=== PATIENT | male | born 1965 | race Caucasian/White ===

== ENCOUNTER → 2017-02-19 | Outpatient (CLI) | payer MEDICAID, SELFPAY | PROVIDERS: Family Provider Family Medicine; Visit Provider Family Medicine | DX: M79.604 Pain in right leg (principal) | CPT/HCPCS: 93971 ==

== ENCOUNTER → 2017-03-31 11:19 | Outpatient (CLI) | payer MEDICAID, SELFPAY ==
--- NOTE | 2017-03-31 11:28 | XR_ITS ---
XR foot RT min 3V HISTORY: ITS.REASON: RT FOOT PAIN ORDERING PHYSICIAN: Tray Lizarraga MD PATIENT AGE: 51 years COMPARISON: None FINDINGS: No fracture or dislocation. No lytic or blastic change. There is normal mineralization.. The joint spaces are well-preserved. No significant degenerative/arthritic changes. No erosive changes evident. IMPRESSION: Negative, no acute finding
== END ==
PROVIDERS: PCP Family Medicine; Visit Provider Family Medicine
DX: M79.671 Pain in right foot (principal)
CPT/HCPCS: 73630

== ENCOUNTER 2019-04-04 06:35 | Inpatient (IN) ==
--- NOTE | 2019-04-04 06:53 | Emergency Department Note ---
ED Disposition Condition on Discharge: Fair - Critical Care Critical Care Time: No <BrennonBharath - Last Filed: 04/04/19 07:58> <Humberto Perez - Last Filed: 04/04/19 11:57> Clinical Impression: Left sided abdominal pain, Left-sided chest pain Disposition: Admitted as Observation Attestation: On 04/04/19, the high probability of a clinically significant, sudden or life threatening deterioration of the following system(s) required my full and direct attention, intervention and personal management. The time I documented below is in addition to time spent performing reported procedures but includes the following listed in this critical care notation. Medical Decision Making - Julius Inquiry Pt receiving controlled substance: Yes Julius was queried for this patient: Yes Reference #:: [id number] Risks and benefits of using a controlled substance: were not discussed with pt by me Comment: 27 rxs. last rx 60 oxymorphone 40mg 03/04/19 - Lab Data Result diagrams: 04/04/19 06:45 04/04/19 06:45 <Bharath Willett - Last Filed: 04/04/19 07:58> - Lab Data Result diagrams: 04/04/19 06:45 04/04/19 06:45 <Humberto Perez - Last Filed: 04/04/19 11:57> Vital Signs: 04/04/19 06:44 04/04/19 07:45 04/04/19 11:27 Temperature 98.5 F Temperature Source Oral Pulse Rate Pulse Rate [Left] 96 H 91 H 89 Respiratory Rate 20 Blood Pressure Blood Pressure [Left Arm] 130/68 120/60 Blood Pressure Mean [Left Arm] 88 80 Blood Pressure Source [Left Arm] Automatic Cuff Blood Pressure Position [Left Arm] Supine 02 Sat by Pulse Oximetry 95 96 96 Oxygen Delivery Method Nasal Cannula Oxygen Flow Rate (LPM) 2 04/04/19 11:41 Temperature 98.1 F Temperature Source Pulse Rate 78 Pulse Rate [Left] Respiratory Rate 18 Blood Pressure 124/78 Blood Pressure [Left Arm] Blood Pressure Mean [Left Arm] Blood Pressure Source [Left Arm] Blood Pressure Position [Left Arm] 02 Sat by Pulse Oximetry Oxygen Delivery Method Oxygen Flow Rate (LPM) - Lab Data Lab Results 04/04/19 06:45: WBC 7.5, RBC 3.65 L, Hgb 11.0 L, Hct 34.0 L, MCV 93.0, MCH 30.2, MCHC 32.5, RDW 13.5, Plt Count 259, MPV 8.4, Neut % (Auto) 79.3, Lymph % (Auto) 12.6, [place] % (Auto) 6.5, Eos % (Auto) 1.4, Baso % (Auto) 0.3, Neut # (Auto) 6.0, Lymph # (Auto) 0.9, [place] # (Auto) 0.5, Eos # (Auto) 0.1, Baso # (Auto) 0.0 04/04/19 06:45: Sodium 143, Potassium 3.6, Chloride 106, Carbon Dioxide 23, Anion Gap 17.6 H, BUN 13, Creatinine 0.89, Estimated Creat Clear 97, Estimated GFR 89, Est GFR ( Amer) 107, Glucose 133 H, Calcium 8.7, Total Bilirubin 0.6, AST 27, ALT 23, Alkaline Phosphatase 70, Troponin I < 0.02, Total Protein 6.9, Albumin 2.1 L, Globulin 4.8 H, Albumin/Globulin Ratio 0.4 L, Lipase 211 04/04/19 10:30: Troponin I < 0.02 04/04/19 10:30: Lactate 1.3 Orders (Tests/Meds): ED MEDICATIONS Generic Name Dose Route Start Last Admin Trade Name Freq PRN Reason Stop Dose Admin Sodium Chloride 1,000 mls @ 125 mls/hr 04/04/19 11:44 Sod Chlor 0.9% 1000ml Bag IV 05/04/19 10:59 .Q8H ARNOLD Ampicillin Sodium/Sulbactam 100 mls @ 200 mls/hr 04/04/19 12:00 Sodium 3 gm/ Sodium Chloride IV 04/18/19 11:59 Q6H ARNOLD Protocol Oxycodone HCl 5 mg 04/04/19 11:44 Oxyir 5mg Tablet PO 05/04/19 10:59 Q4HP PRN Severe Pain Discontinued Medications Generic Name Dose Route Start Last Admin Trade Name Freq PRN Reason Stop Dose Admin Diatrizoate Meglum/Diatrizoate Sod 30 ml 04/04/19 07:54 04/04/19 08:06 Gastrografin 66%-10% 30ml PO 04/04/19 07:55 30 ml ONCE ONE Administration Hydromorphone HCl 1 mg 04/04/19 07:07 04/04/19 07:48 Dilaudid 2mg/Ml Syringe IV 04/04/19 07:08 1 mg ONCE ONE Administration Lactated Ringer's 500 mls @ 999 mls/hr 04/04/19 09:45 04/04/19 10:40 Lactated Ringer's 1000 Ml Bag IV 04/04/19 10:15 Not Given .Q31M ARNOLD Azithromycin 500 mg/ Sodium 250 mls @ 250 mls/hr 04/04/19 10:15 04/04/19 10:49 Chloride IV 04/18/19 10:14 250 mls/hr Q24H ARNOLD Administration Protocol Ceftriaxone Sodium 1 gm/ 50 mls @ 100 mls/hr 04/04/19 10:15 04/04/19 10:39 Sodium Chloride IV 04/18/19 10:14 100 mls/hr Q24H ARNOLD Administration Protocol Sodium Chloride 1,000 mls @ 125 mls/hr 04/04/19 11:00 Sod Chlor 0.9% 1000ml Bag IV 05/04/19 10:59 .Q8H ARNOLD Ioversol 70 ml 04/04/19 09:57 04/04/19 09:58 Rad-Optiray 350 100ml Vial IV 04/04/19 09:58 70 ml ONCE ONE Administration Protocol Ondansetron HCl 4 mg 04/04/19 07:07 04/04/19 07:48 Zofran 4mg/2ml Vial IV 04/04/19 07:08 4 mg ONCE ONE Administration Oxycodone HCl 5 mg 04/04/19 11:00 Oxyir 5mg Tablet PO 05/04/19 10:59 Q4HP PRN Severe Pain Sodium Chloride 50 ml 04/04/19 09:57 04/04/19 09:58 Rad-Ns 50ml Vial IV 04/04/19 09:58 50 ml ONCE ONE Administration Sodium Chloride 10 ml 04/04/19 09:57 04/04/19 09:58 Rad-Saline Flush 10ml Syringe IV 04/04/19 09:58 10 ml ONCE ONE Administration ORDERS Category Date Time Status Consult to General Surgery [CONS] Routine Cons 04/04/19 11:05 Ordered BMP [Basic Metabolic Panel] Routine Lab 04/05/19 05:00 Ordered Complete Blood Count Auto Diff Routine Lab 04/05/19 05:00 Ordered Diarrhea 6-11 Panel, Cdiff PCR Stat Lab 04/04/19 06:54 Ordered Blood Culture Stat Micro 04/04/19 10:30 Received - ECG Data Tracing #1 EKG interpreted by Bharath Willett MD: Rhythm: sinus Rate: 91 Martin: normal Ectopy: none Conduction: normal ST Segment Changes: none T Wave Changes: none Q Waves: none No evidence of acute ischemia or injury Baseline artifact and wander present, but I consider the EKG adequate for accurate interpretation. (Bharath Willett) Medical Decision Narrative: 8:00 AM: At shift change, I have discussed the patient with Dr. Perez, who will assume care of the patient at this time. I have discussed all clinical information including history, physical and diagnostic study results. Preliminary diagnoses based on information available at this point have been recorded by me. Controlled substance administration and critical care statement are also preliminary, as of the time of handoff. (Bharath Willett) Dr Perez: Patient's care handed off to me at shift change pending radiology. On initial evaluation the patient is non toxic in appearance but in acute pain. Patient's labs reviewed and are non actionable. X ray returns showing evidence of left sided pneumonia. Patient started on IV ceftriaxone and IV azithromycin for presumed community acquired pneumonia. Patient's CTs return showing: Impression 1. There is diffuse prominent interstitial markings in the left upper and left lower lobe. This is more extensive in the left upper lobe and has developed since the previous exam. This may be infectious/inflammatory. Lymphangitic tumor spread would be included in the differential diagnosis. There are 3 opacities in the left lower lobe which have developed since the previous exam and could be infectious inflammatory or neoplastic. Follow-up is suggested. There is trace left-sided effusion. 2. No evidence of pulmonary embolus aortic aneurysm or dissection. 3. Mild mediastinal adenopathy. 4. Trace pericardial effusion with coronary artery calcifications noted IMPRESSION: 1. Enlarged appendix measuring up to 10 mm in diameter previously measuring 5-6 mm. There is some minimal stranding of the periappendiceal fat. Appendicitis is considered. Please correlate with clinical parameters. 2. No evidence of renal or ureteral calculi. 3. Infrarenal abdominal aortic aneurysm at 3.8 x 3.8 cm. No evidence of acute retroperitoneal hemorrhage. Contacted the paitent's PCP Dr. Lizarraga as well as Dr. August of surgery to discuss results. Given patient's atypical presentation enlarged appendix is likely due to air from recent colonoscopy. Agreement between all three of us is that the patient will be admitted to the hospital under Dr. Lizarraga's care with Dr. August being consulted for serial abdominal exams. Patient started on Unasyn per Dr. Lizarraga's request. (Humberto Perez) General Adult HPI <Bharath Willett - Last Filed: 04/04/19 07:58> <Humberto Perez - Last Filed: 04/04/19 11:57> - General Chief complaint: Abdominal Pain Stated complaint: L FLANK, ABDOMINAL AND BACK PAIN Time Seen by Provider: 04/04/19 06:40 - History of Present Illness HPI narrative: Brought in by ambulance. Complains of stabbing pain on his left side. Indicates left abdomen, flank, lower chest. He is a poor historian. He had a colonoscopy done here on with polyp removal. He says that the pain began on Thursday. He says that he had "pneumonia on Thursday but it went away on Thursday". He says that he was told that he had vomited acid into his lung. Denies fever. Denies vomiting. He does have diarrhea. Currently denies cough. His pain does increase with breathing. He has a prior history of DVT and PE. He is on Eliquis, which was held for 3 days prior to his colonoscopy. He says he resumed taking it after his colonoscopy. (Bharath Willett) - Related Data Home Medications Medication Instructions Recorded Confirmed albuterol sulfate 90 mcg/actuation 2 puff INHALATION Q4-6H PRN 03/15/19 04/04/19 aerosol inhaler apixaban 5 mg tablet 5 mg PO BID 03/15/19 04/04/19 aspirin 81 mg tablet,delayed 81 mg PO DAILY 03/15/19 04/04/19 release bisoprolol fumarate 5 mg tablet 5 mg PO DAILY 03/15/19 04/04/19 carbamazepine 200 mg tablet 400 mg PO BID tab 03/15/19 04/04/19 diltiazem HCl 30 mg tablet 30 mg PO TID 03/15/19 04/04/19 fluticasone furoate 100 1 inh INHALATION DAILY 03/15/19 04/04/19 mcg-vilanterol 25 mcg/dose inhalation powder fluticasone propionate 50 1 spray INTRANASAL DAILY 03/15/19 04/04/19 mcg/actuation nasal spray,suspension furosemide 20 mg tablet 20 mg PO BID 03/15/19 04/04/19 lactulose 10 gram/15 mL oral 10 g PO DAILY 03/15/19 04/04/19 solution linaclotide 72 mcg capsule 72 mcg PO DAILY 03/15/19 04/04/19 meloxicam 15 mg tablet 15 mg PO DAILY 03/15/19 04/04/19 naloxone 4 mg/actuation nasal spray 4 mg INTRANASAL Q2-3M PRN 03/15/19 04/04/19 nitroglycerin 0.4 mg sublingual 0.4 mg SUBLINGUAL Q5M PRN 03/15/19 04/04/19 tablet omeprazole 40 mg capsule,delayed 40 mg PO DAILY 03/15/19 04/04/19 release potassium chloride 20 mEq 20 meq PO DAILY 03/15/19 04/04/19 tablet,extended release pravastatin 20 mg tablet 20 mg PO DAILY 03/15/19 04/04/19 promethazine 25 mg tablet 25 mg PO Q6H PRN 03/15/19 04/04/19 risperidone 3 mg tablet 3 mg PO BID 03/15/19 04/04/19 umeclidinium 62.5 mcg/actuation 1 inh INHALATION DAILY 03/15/19 04/04/19 blister powder for inhalation Oxymorphone HCl [Oxymorphone HCl 40 mg PO DAILY 03/31/19 04/04/19 ER] Allergies Allergy/AdvReac Type Severity Reaction Status Date / Time codeine [CODEINE] Allergy Mild Verified 03/31/19 07:20 levofloxacin [From LEVAQUIN] Allergy Mild Verified 03/31/19 07:20 methadone [METHADONE] Allergy Mild Verified 03/31/19 07:20 fentanyl [From Duragesic] Allergy Verified 03/31/19 07:20 morphine Allergy Verified 03/31/19 07:20 [facility] History I have reviewed the patient's past medical history: Yes Medical History: Reports:: Chronic Obstructive Pulmonary Disease (COPD), Gastroesophageal Reflux Disease(GERD), Hyperlipidemia, Hypertension, MRSA, Seizures Denies:: Cancer, Diabetes Mellitus Type 1, Diabetes Mellitus Type 2, Internal Pacemaker Other Medical History: Reports: Arthritis Comment: Home O2 at 3 L via [place] Other Surgeries: Yes: Colonoscopy, Other (Lumbar sx X3). No: Pacemaker Amputation: No Fractures: No Comment: 5-6 back surgeries, lt arm - Social History Smoking Status: Former smoker Alcohol Intake: never Substance Use Type: denies use Occupational Status: disabled Housing: house Household Members: none Family Hx:: Unable to obtain <Bharath Willett - Last Filed: 04/04/19 07:58> - Hepatitis A Screen Attestation statement:: This patient has been screened for Hepatitis A risk factors. ROS Obtained: Yes All systems reviewed & no additional complaints - Constitutional Constitutional: Denies fever(s) - Cardiovascular Cardiovascular: Reports chest pain - Respiratory Respiratory: No cough, Yes pain on inspiration - Gastrointestinal Gastrointestingal: Reports: abdominal pain, diarrhea. Denies: nausea, vomiting - Genitourinary Male Genitourinary: Denies difficulty urinating <Bharath Willett - Last Filed: 04/04/19 07:58> Physical Exam - General General appearance: alert - Head Head exam: atraumatic, normocephalic - Eye Eye exam: Present: normal appearance, EOMI - ENT ENT exam: Present: mucous membranes moist - Neck Neck exam: Present: normal inspection, trachea midline - Chest Chest inspection: Present: normal inspection, symmetric chest wall rise - Respiratory Respiratory exam: Present: normal lung sounds bilaterally. Absent: respiratory distress - Cardiovascular Cardiovascular exam: Present: regular rate, normal rhythm, normal heart sounds - Abdominal Exam Abdominal exam: Present: tenderness, guarding Abdominal tenderness: Present: LUQ, LLQ - Extremities Exam Extremities exam: Present: normal inspection - Neurological Exam Neurological exam: Present: alert - Psychiatric Psychiatric exam: Present: anxious - Skin Skin exam: Present: warm, dry <Bharath Willett - Last Filed: 04/04/19 07:58> - General Comment: Restless, anxious, grimacing and moaning (Bharath Willett)
[2019-04-04 07:04] LABS: Basophils % 0.3 % (0.1-2.0); Eosinophils # 0.1 K/mm3 (0.0-0.4); Eosinophils % 1.4 % (0.1-12.0); Lymphocytes # 0.9 K/mm3 (0.7-4.5); Lymphocytes % 12.6 % (10-50); Mean Corpuscular HGB Conc 32.5 g/dL (31.8-35.4); Mean Platelet Volume 8.4 fl (7.4-10.4); Monocytes # 0.5 K/mm3 (0.1-1.0); Monocytes % 6.5 % (1.7-9.3); Neutrophils % 79.3 % (37.0-80.0); Platelet Count 259 K/mm3 (142-424); Red Blood Count 3.65 M/mm3 (4.60-6.20); Red Cell Distribution Width 13.5 % (11.5-17.5); White Blood Count 7.5 K/mm3 (4.8-10.8)
[2019-04-04 07:25] LABS: Alanine Aminotransferase 23 U/L (12-78); Albumin Level 2.1 gm/dL (3.4-5.0); Albumin/Globulin Ratio 0.4 (1.1-1.8); Alkaline Phosphatase 70 U/L (46-116); Anion Gap 17.6 mEq/L (5-15); Aspartate Amino Transferase 27 U/L (15-37); Bilirubin,Total 0.6 mg/dL (0.2-1.0); Blood Urea Nitrogen 13 mg/dL (7-18); Calcium 8.7 mg/dL (8.5-10.1); Carbon Dioxide 23 mmol/L (21.0-32.0); Chloride 106 mmol/L (98-107); Globulin 4.8 gm/dl (1.3-3.2); Glucose 133 mg/dL (74-106); Sodium 143 mmol/L (136-145); Total Protein,Serum 6.9 gm/dL (6.4-8.2)
--- NOTE | 2019-04-04 13:28 | Consult Report ---
*Admission Date: 04/04/19 *Reason for consult:: Abdominal pain; possible appendicitis *History of present illness: This is a 53-year-old gentleman seen in consultation from the service of Dr. Lizarraga after being evaluated in the emergency department with left lower chest, left flank, and global abdominal pain (worse on the left). He is 4 days status post colonoscopy with polypectomy. Evaluation in emergency department revealed changes consistent with likely left-sided pneumonia; however, he also was found to have a somewhat enlarged appendix with questionable minimal periappendiceal fat stranding. He states that his appetite has been a little low for the past few weeks (in particular since bowel prep for colonoscopy). He states that over the past 24 to 48 hours he is appetite is been "about the same". No fevers. No nausea. He has had some "loose stools" over the past few days. Review of Systems - Constitutional Denies fever(s) - Eyes Denies change in vision - ENT Denies difficulty swallowing - *Cardiovascular Reports chest pain - *Gastrointestinal Reports abdominal pain, Reports loose stools, Denies nausea, Denies vomiting - *Genitourinary Reports side pain - Endocrine Denies increased hunger - Hematologic/Lymphatic Reports easy bruising [facility] History Medical History: Reports:: Chronic Obstructive Pulmonary Disease (COPD), Gastroesophageal Reflux Disease(GERD), Hyperlipidemia, Hypertension, MRSA, Seizures Denies:: Cancer, Diabetes Mellitus Type 1, Diabetes Mellitus Type 2, Internal Pacemaker *Have you ever received a pneumonia vaccine?: Yes *Have you received a flu vaccine this season?: Yes Other Medical History: Reports: Arthritis Other Surgeries: Yes: Colonoscopy, Other (Lumbar sx X3). No: Pacemaker Amputation: No Fractures: No - *Social History Smoking Status: Former smoker Tobacco Type: cigarettes Alcohol Intake: former Substance Use Type: unknown *Occupational Status:: disabled Housing: house Household Members: none *Travel in the last 8 weeks: None Family Hx:: Unable to obtain Meds Home Medications Medication Instructions Recorded Confirmed Type albuterol sulfate 90 mcg/actuation 2 puff INHALATION Q4-6H PRN 03/15/19 04/04/19 History aerosol inhaler apixaban 5 mg tablet 5 mg PO BID 03/15/19 04/04/19 History aspirin 81 mg tablet,delayed 81 mg PO DAILY 03/15/19 04/04/19 History release bisoprolol fumarate 5 mg tablet 5 mg PO DAILY 03/15/19 04/04/19 History carbamazepine 200 mg tablet 400 mg PO BID tab 03/15/19 04/04/19 History diltiazem HCl 30 mg tablet 30 mg PO TID 03/15/19 03/31/19 History fluticasone furoate 100 1 inh INHALATION DAILY 03/15/19 04/04/19 History mcg-vilanterol 25 mcg/dose inhalation powder fluticasone propionate 50 1 spray INTRANASAL DAILY 03/15/19 04/04/19 History mcg/actuation nasal spray,suspension furosemide 20 mg tablet 20 mg PO BID 03/15/19 04/04/19 History lactulose 10 gram/15 mL oral 10 g PO DAILY 03/15/19 04/04/19 History solution linaclotide 72 mcg capsule 72 mcg PO DAILY 03/15/19 04/04/19 History meloxicam 15 mg tablet 15 mg PO DAILY 03/15/19 04/04/19 History naloxone 4 mg/actuation nasal spray 4 mg INTRANASAL Q2-3M PRN 03/15/19 04/04/19 History nitroglycerin 0.4 mg sublingual 0.4 mg SUBLINGUAL Q5M PRN 03/15/19 04/04/19 History tablet omeprazole 40 mg capsule,delayed 40 mg PO DAILY 03/15/19 04/04/19 History release potassium chloride 20 mEq 20 meq PO DAILY 03/15/19 04/04/19 History tablet,extended release pravastatin 20 mg tablet 20 mg PO DAILY 03/15/19 04/04/19 History promethazine 25 mg tablet 25 mg PO Q6H PRN 03/15/19 04/04/19 History risperidone 3 mg tablet 3 mg PO BID 03/15/19 04/04/19 History umeclidinium 62.5 mcg/actuation 1 inh INHALATION DAILY 03/15/19 04/04/19 History blister powder for inhalation Oxymorphone HCl [Oxymorphone HCl 40 mg PO DAILY 03/31/19 04/04/19 History ER] Allergies Allergy/AdvReac Type Severity Reaction Status Date / Time codeine [CODEINE] Allergy Mild Verified 03/31/19 07:20 levofloxacin [From LEVAQUIN] Allergy Mild Verified 03/31/19 07:20 methadone [METHADONE] Allergy Mild Verified 03/31/19 07:20 fentanyl [From Duragesic] Allergy Verified 03/31/19 07:20 morphine Allergy Verified 03/31/19 07:20 Exam Vital signs and Labs for Last 24 Hours: Temp Pulse Resp BP Pulse Ox 97.9 F 96 H 22 158/58 H 93 L 04/04/19 12:00 04/04/19 12:00 04/04/19 12:00 04/04/19 12:00 04/04/19 12:00 Laboratory Results - last 24 hr 04/04/19 06:45: WBC 7.5, RBC 3.65 L, Hgb 11.0 L, Hct 34.0 L, MCV 93.0, MCH 30.2, MCHC 32.5, RDW 13.5, Plt Count 259, MPV 8.4, Neut % (Auto) 79.3, Lymph % (Auto) 12.6, [place] % (Auto) 6.5, Eos % (Auto) 1.4, Baso % (Auto) 0.3, Neut # (Auto) 6.0, Lymph # (Auto) 0.9, [place] # (Auto) 0.5, Eos # (Auto) 0.1, Baso # (Auto) 0.0 04/04/19 06:45: Sodium 143, Potassium 3.6, Chloride 106, Carbon Dioxide 23, Anion Gap 17.6 H, BUN 13, Creatinine 0.89, Estimated Creat Clear 97, Estimated GFR 89, Est GFR ( Amer) 107, Glucose 133 H, Calcium 8.7, Total Bilirubin 0.6, AST 27, ALT 23, Alkaline Phosphatase 70, Troponin I < 0.02, Total Protein 6.9, Albumin 2.1 L, Globulin 4.8 H, Albumin/Globulin Ratio 0.4 L, Lipase 211 04/04/19 10:30: Troponin I < 0.02 04/04/19 10:30: Lactate 1.3 I & O for Last 24 hours: Intake & Output 04/02/19 04/03/19 04/04/19 04/05/19 11:59 11:59 11:59 11:59 Intake Total 300 / 300 Balance 300 / 300 Weight 160 lb 4 oz - Constitutional moderate distress - *Routine Respiratory Exam Absent: respiratory distress - *Routine Cardiovascular Exam Absent: tachycardia - *Routine Abdominal Exam Present: tenderness, distended Comments: The patient has global abdominal tenderness to palpation. He does not have mandie peritonitis. When any portion of his abdomen is palpated he states that he "hurts there but it hurts more in the left upper side". He states that his pain "goes to the left upper side". He believes that his pain is "from the pneumonia". Results - Labs 04/04/19 06:45 04/04/19 06:45 Laboratory Results - last 24 hr 04/04/19 06:45: WBC 7.5, RBC 3.65 L, Hgb 11.0 L, Hct 34.0 L, MCV 93.0, MCH 30.2, MCHC 32.5, RDW 13.5, Plt Count 259, MPV 8.4, Neut % (Auto) 79.3, Lymph % (Auto) 12.6, [place] % (Auto) 6.5, Eos % (Auto) 1.4, Baso % (Auto) 0.3, Neut # (Auto) 6.0, Lymph # (Auto) 0.9, [place] # (Auto) 0.5, Eos # (Auto) 0.1, Baso # (Auto) 0.0 04/04/19 06:45: Sodium 143, Potassium 3.6, Chloride 106, Carbon Dioxide 23, Anion Gap 17.6 H, BUN 13, Creatinine 0.89, Estimated Creat Clear 97, Estimated GFR 89, Est GFR ( Amer) 107, Glucose 133 H, Calcium 8.7, Total Bilirubin 0.6, AST 27, ALT 23, Alkaline Phosphatase 70, Troponin I < 0.02, Total Protein 6.9, Albumin 2.1 L, Globulin 4.8 H, Albumin/Globulin Ratio 0.4 L, Lipase 211 04/04/19 10:30: Troponin I < 0.02 04/04/19 10:30: Lactate 1.3 - Imaging CT scan - abdomen: report reviewed, image reviewed CT scan - pelvis: report reviewed, image reviewed Assessment and Plan (1) Diffuse abdominal pain Current visit: Yes Status: Acute Category: Medical Code(s): R10.84 - Generalized abdominal pain The patient does have a somewhat enlarged appendix on his CT scan. He is tender in the right lower quadrant; however, he is much more tender in the left upper quadrant and is more tender in general on the left. He states that all of his pain "shoots to the left". Although he may have early appendicitis as evidenced by his CT scan, he does have evidence more consistent with pneumonia. Somewhat inconsistent with either the diagnosis of pneumonia or appendicitis is the fact that his white blood cell count is normal (no left shift) and he has had no fever. In addition he has had no nausea/vomiting. Serial abdominal exams Clear liquids for now (n.p.o. after midnight) Repeat CBC in a.m. Secondary to somewhat discordant findings it may be beneficial/necessary to repeat his abdominal/pelvic CT within the next 24 to 48 hours (2) Left sided abdominal pain Current visit: Yes Status: Acute Category: Medical Code(s): R10.9 - Unspecified abdominal pain (3) Left-sided chest pain Current visit: Yes Status: Acute Category: Medical Code(s): R07.9 - Chest pain, unspecified
--- NOTE | 2019-04-04 13:48 | Pharmacy Consult Notes ---
[facility] Pharmacy VTE Monitoring - Patient Demographics Admission date: 04/04/19 Report Date: 04/04/19 Time: 13:48 Allergies/Adverse Reactions: Patient Allergies codeine [CODEINE] Allergy (Mild, Verified 03/31/19 07:20) levofloxacin [From LEVAQUIN] Allergy (Mild, Verified 03/31/19 07:20) methadone [METHADONE] Allergy (Mild, Verified 03/31/19 07:20) fentanyl [From Duragesic] Allergy (Verified 03/31/19 07:20) morphine Allergy (Verified 03/31/19 07:20) Height: 1.73 m Weight: 72.688 kg Patient Problems: Current Active Problems Left sided abdominal pain (Acute) Left-sided chest pain (Acute) Diffuse abdominal pain (Acute) - VTE Risk Labs: VTE Related Lab Results Hgb 11.0 g/dL (14.1-18.0) L 04/04/19 06:45 Hct 34.0 % (42.0-52.0) L 04/04/19 06:45 Plt Count 259 K/mm3 (142-424) 04/04/19 06:45 BUN 13 mg/dL (7-18) 04/04/19 06:45 Creatinine 0.89 mg/dL (0.70-1.30) 04/04/19 06:45 Estimated Creat Clear 97 mL/min (50-200) 04/04/19 06:45 VTE Score: 5 VTE Risk Level: Low Risk - Prophylaxis VTE Prophylaxis Ordered?: Yes Types of VTE Prophylaxis: TEDS Knee High Location of Applied Device: Bilateral Lower Extremeties
--- NOTE | 2019-04-04 17:06 | History & Physical Report ---
*Admission Date: 04/04/19 *Chief complaint: Left-sided pain *History of present illness: 53-year-old male presented to the emergency department this morning with left- sided abdomen and lower chest pain. On March 31 patient underwent a colonoscopy at this facility. Patient was discharged home post procedurally and claims he was told he aspirated while he was under sedation. On Thursday patient contacted my office with complaints of cough from his "aspiration" and requested antibiotic prescription be sent to his pharmacy. Patient also felt congested symptoms in the left lung. Augmentin was called in and in less than 48 hours patient's congested chest symptoms had improved. However abdominal pain began to develop on ThursdayApril 02. Patient had associated left-sided pain along with nausea but no vomiting and diarrhea. Patient tells me that he had been without his prescription opiate pain medicine which he takes for chronic pain on Thursday. Patient takes Opana ER 40 mg twice daily. His last dose was evening. His pharmacy did not have his medication in stock and so he has been without that medication since April 01. GI symptoms increased on Thursday. Since that time stools have been loose. He denies blood in his stool. This morning he presented to the emergency department because he could no longer stand the pain. He reports left-sided pain and the patient will hold his left lower ribs and upper abdomen when indicating his area of pain. Patient also tells me that he reported some right sided lower abdominal discomfort as well. Patient was evaluated in the emergency department. He appeared in pain. Labs were unremarkable. A CT scan of the chest performed looking for pulmonary embolism because of patient's history showed inflammatory versus infectious changes of the left lung. A CT of the abdomen and pelvis performed showed prominent appendix without definitive evidence of appendicitis. Decision was made to admit the patient for monitoring and serial abdominal exams. [facility] History I have reviewed the patient's past medical history: Yes Medical History: Reports:: Atrial Fibrillation, Chronic Obstructive Pulmonary Disease (COPD), Gastroesophageal Reflux Disease(GERD), Hyperlipidemia, Hypertension, MRSA, Pulmonary Embolism, Seizures Denies:: Cancer, Diabetes Mellitus Type 1, Diabetes Mellitus Type 2, Internal Pacemaker *Have you ever received a pneumonia vaccine?: Yes *Have you received a flu vaccine this season?: Yes Other Medical History: Reports: Arthritis Other Surgeries: Yes: Colonoscopy, Other (Lumbar sx X3). No: Pacemaker Amputation: No Fractures: No - *Social History Educational Level: Attended Grade School Smoking Status: Former smoker Tobacco Type: cigarettes # Packs/Day (cigarettes): 1 #Yrs smoked (if former smoker): 30 Smoking End Date: 20 years ago Alcohol Intake: never Substance Use Type: unknown *Occupational Status:: disabled Housing: house Household Members: none *Travel in the last 8 weeks: None Family Hx:: Heart Attack, Hyperlipidemia Review of Systems - Constitutional Reports anorexia, Reports body ache(s), Reports chills, Reports excessive sweating, Reports fatigue, Reports headache(s), Reports lack of energy, Reports malaise, Reports weakness, Denies fever(s) - *Cardiovascular Reports excessive sweating, Denies chest pain, Denies chest pain at rest, Denies chest pain with activity, Denies leg pain with activity, Denies shortness of breath, Denies shortness of breath with activity, Denies generalized swelling, Denies irregular heart rhythm, Denies leg swelling - *Respiratory Reports chest congestion, Reports cough, Reports shortness of breath (Chronic), Reports shortness of breath with activity, Reports pain on inspiration, Reports pain with cough, Denies change in phlegm color, Denies coughing up blood - *Gastrointestinal Comments: See HPI - *Musculoskeletal Reports joint pain (Cervical spine, shoulders, lumbar spine) Meds Home Medications Medication Instructions Recorded Confirmed Type Oxymorphone HCl [Oxymorphone HCl 40 mg PO DAILY 03/31/19 04/04/19 History ER] Albuterol Sulfate [Proair 90 mcg IH Q4-6H 04/04/19 04/04/19 History Respiclick] Apixaban [Eliquis] 5 mg PO BID 04/04/19 04/04/19 History Aspirin [Aspir-Low] 81 mg PO DAILY 04/04/19 04/04/19 History Bisoprolol Fumarate [Bisoprolol 5 mg PO DAILY 04/04/19 04/04/19 History 5mg Tablet] Fluticasone Propionate [Flonase 1 spr NS BID 04/04/19 04/04/19 History 50mcg nasal spray 16gm] Fluticasone/Vilanterol [Breo 1 inh IH DAILY 04/04/19 04/04/19 History Ellipta 100-25 Mcg INH] Furosemide [Lasix 20mg tab] 20 mg PO BID 04/04/19 04/04/19 History Lactulose [Lactulose 10gm/15ml 10 gm PO DAILY 04/04/19 04/04/19 History Oral Soln] Linaclotide [Linzess] 72 mcg PO DAILY 04/04/19 04/04/19 History Meloxicam 15 mg PO DAILY 04/04/19 04/04/19 History Naloxone HCl [Narcan] 4 mg NS Q2M PRN 04/04/19 04/04/19 History Nitroglycerin [Nitrostat 0.4mg SL 0.4 mg SL Q5M PRN 04/04/19 04/04/19 History Tablet] Omeprazole [Omeprazole 40mg 40 mg PO DAILY 04/04/19 04/04/19 History Capsule] Potassium Chloride [Klor-con 20 20 meq PO DAILY 04/04/19 04/04/19 History mEq tablet] Pravastatin Sodium [Pravachol] 20 mg PO HS 04/04/19 04/04/19 History Promethazine HCl [Phenergan 25mg 25 mg PO Q6H PRN 04/04/19 04/04/19 History tab] Umeclidinium [place] [Incruse 1 inh INHALATION DAILY 04/04/19 04/04/19 History Ellipta] carBAMazepine [Tegretol] 400 mg PO BID 04/04/19 04/04/19 History risperiDONE [Risperidone] 3 mg PO BID 04/04/19 04/04/19 History Allergies Allergy/AdvReac Type Severity Reaction Status Date / Time codeine [CODEINE] Allergy Mild Verified 03/31/19 07:20 levofloxacin [From LEVAQUIN] Allergy Mild Verified 03/31/19 07:20 methadone [METHADONE] Allergy Mild Verified 03/31/19 07:20 fentanyl [From Duragesic] Allergy Verified 03/31/19 07:20 morphine Allergy Verified 03/31/19 07:20 Exam Vital signs and Labs for Last 24 Hours: Temp Pulse Resp BP Pulse Ox 97.9 F 96 H 22 158/58 H 93 L 04/04/19 12:00 04/04/19 12:00 04/04/19 12:00 04/04/19 12:00 04/04/19 12:00 Laboratory Results - last 24 hr 04/04/19 06:45: WBC 7.5, RBC 3.65 L, Hgb 11.0 L, Hct 34.0 L, MCV 93.0, MCH 30.2, MCHC 32.5, RDW 13.5, Plt Count 259, MPV 8.4, Neut % (Auto) 79.3, Lymph % (Auto) 12.6, [place] % (Auto) 6.5, Eos % (Auto) 1.4, Baso % (Auto) 0.3, Neut # (Auto) 6.0, Lymph # (Auto) 0.9, [place] # (Auto) 0.5, Eos # (Auto) 0.1, Baso # (Auto) 0.0 04/04/19 06:45: Sodium 143, Potassium 3.6, Chloride 106, Carbon Dioxide 23, Anion Gap 17.6 H, BUN 13, Creatinine 0.89, Estimated Creat Clear 97, Estimated GFR 89, Est GFR ( Amer) 107, Glucose 133 H, Calcium 8.7, Total Bilirubin 0.6, AST 27, ALT 23, Alkaline Phosphatase 70, Troponin I < 0.02, Total Protein 6.9, Albumin 2.1 L, Globulin 4.8 H, Albumin/Globulin Ratio 0.4 L, Lipase 211 04/04/19 10:30: Troponin I < 0.02 04/04/19 10:30: Lactate 1.3 04/04/19 13:24: Stl Aeromonas (PCR) Not detected, Stl C. cayetanensis PCR Not detected, Stool Rotavirus (PCR) Not detected, Stl Adenov F 40/41 PCR Not detected, Stool Astrovirus (PCR) Not detected, Stool Campylobacter PCR Not detected, Stl C.difficile Tox PCR Not detected, Stool Cryptosporidium PCR Not detected, Stl E.coli Shiga Tox PCR Not detected, Stool E coli O157 PCR Not detected, Stl Enterotoxigenic E PCR Not detected, Stool EPEC (PCR) Not detected, Stool EAEC (PCR) Not detected, Stl E. histolytica PCR Not detected, Stool Giardia Lamblia PCR Not detected, Stool Salmonella PCR Not detected, Stool Sapovirus (PCR) Not detected, Stl P. shigelloides PCR Not detected, Stl Shigella/EIEC PCR Not detected, St Y.enterocolitica PCR Not detected, Stool Vibrio (PCR) Not detected, Stl Vibrio cholerae PCR Not detected, Stl Norovirus GI/GII PCR Not detected I & O for Last 24 hours: Intake & Output 04/02/19 04/03/19 04/04/19 04/05/19 11:59 11:59 11:59 11:59 Intake Total 300 / 300 Balance 300 / 300 Weight 160 lb 4 oz Narrative: Patient appears uncomfortable. He is laying on his right side in the bed. Attempts to have the patient lay on his back for examination were unsuccessful due to the amount of discomfort he was experiencing. Speech is fluent and clear. He is oriented to person place and time. ENT exam shows normal external ears. Patient is edentulous with moist oropharynx. Neck is without lymphadenopathy. Heart has a rapid rate and rhythm. No murmurs heard. Lungs at present are clear but distant. There is no wheezing. Inspirations are shallow due to pain. Chest wall exam reveals minimal tenderness over the left lower ribs and intercostals. Abdominal exam reveals tenderness of the right lower quadrant. With palpation of left lower and left upper quadrant patient notes discomfort underneath the left ribs. Bowel sounds are hyperactive. Skin is warm to the touch. Neurologically there is no motor or sensory deficit. Assessment and Plan (1) Appendicitis Current visit: Yes Status: Suspected Category: Medical Code(s): K37 - Unspecified appendicitis (2) Opiate withdrawal Current visit: Yes Status: Acute Category: Medical Code(s): F11.23 - Opioid dependence with withdrawal (3) Diffuse abdominal pain Current visit: Yes Status: Acute Category: Medical Code(s): R10.84 - Generalized abdominal pain (4) Left sided abdominal pain Current visit: Yes Status: Acute Category: Medical Code(s): R10.9 - Unspecified abdominal pain (5) Left-sided chest pain Current visit: Yes Status: Acute Category: Medical Code(s): R07.9 - Chest pain, unspecified - Assessment and plan all Dx Assessment and Plan for all problems:: Patient has been admitted for serial abdominal examination to rule out appendicitis. Dr. August of the surgical service has been consulted and examined the patient. Patient's home medications, including his Eliquis, will be held except for inhaled medications. Duo nebs will be ordered as needed for any wheezing due to patient's underlying COPD. I suspect part of patient's symptomatology is due to opiate withdrawal as he takes a high dose of a long- acting oral narcotic and has now been without this medication for nearly 96 hours. Patient's symptoms started 36 hours after his last dose of medication. Patient will be given Dilaudid 2 mg IV every 4 hours as needed for pain. Patient will be made n.p.o. after midnight for reassessment in the morning.
[2019-04-05 06:41] LABS: Basophils % 0.6 % (0.1-2.0); Eosinophils # 0.2 K/mm3 (0.0-0.4); Hematocrit 31.1 % (42.0-52.0); Hemoglobin 10.4 g/dL (14.1-18.0); Lymphocytes # 1.3 K/mm3 (0.7-4.5); Lymphocytes % 22.5 % (10-50); Mean Corpuscular HGB Conc 33.4 g/dL (31.8-35.4); Mean Corpuscular Volume 91.3 fl (80-94); Mean Platelet Volume 7.9 fl (7.4-10.4); Monocytes # 0.6 K/mm3 (0.1-1.0); Neutrophils # 3.7 K/mm3 (1.8-7.8); Platelet Count 262 K/mm3 (142-424); Red Cell Distribution Width 13.1 % (11.5-17.5); White Blood Count 5.9 K/mm3 (4.8-10.8)
[2019-04-05 06:47] LABS: Anion Gap 13.6 mEq/L (5-15); Calcium 8.3 mg/dL (8.5-10.1)
--- NOTE | 2019-04-05 07:21 | Progress Note ---
Internal Medicine - PN: Maria Fernanda *Date: 04/05/19 *Time: 07:18 Interval history: Patient had repeat CT scan overnight which showed increase in the size his appendix by millimeter and additional changes consistent with developing appendicitis. Patient is not had any fevers overnight. Nursing staff reports IV Dilaudid did help control pain for limited amounts of time. He continues to report left sided pain both underneath his ribs and in his back. Exam Vital signs and Labs for Last 24 Hours: Temp Pulse Resp BP Pulse Ox 99.7 F H 90 40 H 109/61 L 98 04/05/19 01:36 04/05/19 02:24 04/05/19 02:20 04/05/19 02:24 04/05/19 02:24 Laboratory Results - last 24 hr 04/04/19 06:45: Sodium 143, Potassium 3.6, Chloride 106, Carbon Dioxide 23, Anion Gap 17.6 H, BUN 13, Creatinine 0.89, Estimated Creat Clear 97, Estimated GFR 89, Est GFR ( Amer) 107, Glucose 133 H, Calcium 8.7, Total Bilirubin 0.6, AST 27, ALT 23, Alkaline Phosphatase 70, Troponin I < 0.02, Total Protein 6.9, Albumin 2.1 L, Globulin 4.8 H, Albumin/Globulin Ratio 0.4 L, Lipase 211 04/04/19 10:30: Troponin I < 0.02 04/04/19 10:30: Lactate 1.3 04/04/19 13:24: Stl Aeromonas (PCR) Not detected, Stl C. cayetanensis PCR Not detected, Stool Rotavirus (PCR) Not detected, Stl Adenov F 40/41 PCR Not detected, Stool Astrovirus (PCR) Not detected, Stool Campylobacter PCR Not detected, Stl C.difficile Tox PCR Not detected, Stool Cryptosporidium PCR Not detected, Stl E.coli Shiga Tox PCR Not detected, Stool E coli O157 PCR Not detected, Stl Enterotoxigenic E PCR Not detected, Stool EPEC (PCR) Not detected, Stool EAEC (PCR) Not detected, Stl E. histolytica PCR Not detected, Stool Giardia Lamblia PCR Not detected, Stool Salmonella PCR Not detected, Stool Sapovirus (PCR) Not detected, Stl P. shigelloides PCR Not detected, Stl Shigella/EIEC PCR Not detected, St Y.enterocolitica PCR Not detected, Stool Vibrio (PCR) Not detected, Stl Vibrio cholerae PCR Not detected, Stl Norovirus GI/GII PCR Not detected 04/05/19 06:17: WBC 5.9, RBC 3.40 L, Hgb 10.4 L, Hct 31.1 L, MCV 91.3, MCH 30.5, MCHC 33.4, RDW 13.1, Plt Count 262, MPV 7.9, Neut % (Auto) 64.0, Lymph % (Auto) 22.5, [place] % (Auto) 10.0 H, Eos % (Auto) 3.0, Baso % (Auto) 0.6, Neut # (Auto) 3.7, Lymph # (Auto) 1.3, [place] # (Auto) 0.6, Eos # (Auto) 0.2, Baso # (Auto) 0.0 04/05/19 06:17: Sodium 145, Potassium 3.6, Chloride 112 H, Carbon Dioxide 23, Anion Gap 13.6, BUN 12, Creatinine 0.72, Estimated Creat Clear 121, Estimated GFR 113, Est GFR ( Amer) 137 D, Glucose 101 D, Calcium 8.3 L I & O for Last 24 hours: Intake & Output 04/02/19 04/03/19 04/04/19 04/05/19 11:59 11:59 11:59 11:59 Intake Total 300 / 300 916 / 916 Output Total 1000 / 1000 Balance 300 / 300 -84 / -84 Weight 160 lb 4 oz 162 lb 6 oz Narrative: Patient is laying on his right side and asleep when I enter the room. Upon awakening he begins moaning in pain. Lungs remained clear. Heart has a regular rate and rhythm. Abdomen is difficult to examine. Patient has tenderness out of proportion to palpation along his left abdomen and flank. With deep palpation of the right lower quadrant there is tenderness. Bowel sounds are present. Extremities are warm to the touch Assessment and Plan (1) Appendicitis Current visit: Yes Status: Suspected Category: Medical Code(s): K37 - Unspecified appendicitis (2) Opiate withdrawal Current visit: Yes Status: Acute Category: Medical Code(s): F11.23 - Opioid dependence with withdrawal (3) Diffuse abdominal pain Current visit: Yes Status: Acute Category: Medical Code(s): R10.84 - Generalized abdominal pain (4) Left sided abdominal pain Current visit: Yes Status: Acute Category: Medical Code(s): R10.9 - Unspecified abdominal pain (5) Left-sided chest pain Current visit: Yes Status: Acute Category: Medical Code(s): R07.9 - Chest pain, unspecified - Assessment and plan all Dx Assessment and Plan for all problems:: Await surgical reassessment this morning. Continue IV Unasyn. Continue Dilaudid for pain
--- NOTE | 2019-04-05 07:53 | Progress Note ---
Subjective Patient reports: no new complaints Narrative: States that he is having less pain on the right but continues to have severe pain in the left upper quadrant/flank. Exam Vital signs and Labs for Last 24 Hours: Temp Pulse Resp BP Pulse Ox 99.7 F H 90 40 H 109/61 L 98 04/05/19 01:36 04/05/19 02:24 04/05/19 02:20 04/05/19 02:24 04/05/19 02:24 Laboratory Results - last 24 hr 04/04/19 10:30: Troponin I < 0.02 04/04/19 10:30: Lactate 1.3 04/04/19 13:24: Stl Aeromonas (PCR) Not detected, Stl C. cayetanensis PCR Not detected, Stool Rotavirus (PCR) Not detected, Stl Adenov F 40/41 PCR Not detected, Stool Astrovirus (PCR) Not detected, Stool Campylobacter PCR Not detected, Stl C.difficile Tox PCR Not detected, Stool Cryptosporidium PCR Not detected, Stl E.coli Shiga Tox PCR Not detected, Stool E coli O157 PCR Not detected, Stl Enterotoxigenic E PCR Not detected, Stool EPEC (PCR) Not detected, Stool EAEC (PCR) Not detected, Stl E. histolytica PCR Not detected, Stool G iardia Lamblia PCR Not detected, Stool Salmonella PCR Not detected, Stool Sapovirus (PCR) Not detected, Stl P. shigelloides PCR Not detected, Stl Shigella/EIEC PCR Not detected, St Y.enterocolitica PCR Not detected, Stool Vibrio (PCR) Not detected, Stl Vibrio cholerae PCR Not detected, Stl Norovirus GI/GII PCR Not detected 04/05/19 06:17: WBC 5.9, RBC 3.40 L, Hgb 10.4 L, Hct 31.1 L, MCV 91.3, MCH 30.5, MCHC 33.4, RDW 13.1, Plt Count 262, MPV 7.9, Neut % (Auto) 64.0, Lymph % (Auto) 22.5, [place] % (Auto) 10.0 H, Eos % (Auto) 3.0, Baso % (Auto) 0.6, Neut # (Auto) 3.7, Lymph # (Auto) 1.3, [place] # (Auto) 0.6, Eos # (Auto) 0.2, Baso # (Auto) 0.0 04/05/19 06:17: Sodium 145, Potassium 3.6, Chloride 112 H, Carbon Dioxide 23, Anion Gap 13.6, BUN 12, Creatinine 0.72, Estimated Creat Clear 121, Estimated GFR 113, Est GFR ( Amer) 137 D, Glucose 101 D, Calcium 8.3 L I & O for Last 24 hours: Intake & Output 04/02/19 04/03/19 04/04/19 04/05/19 11:59 11:59 11:59 11:59 Intake Total 300 / 300 2102 / 2102 Output Total 1000 / 1000 Balance 300 / 300 1102 / 1102 Weight 160 lb 4 oz 162 lb 6 oz Radiology Reports for the Last 24 Hours: Repeat CT scan overnight reveals changes consistent with development appendicitis. - Constitutional no acute distress - *Routine Respiratory Exam Absent: respiratory distress - *Routine Cardiovascular Exam Present: RRR - *Routine Abdominal Exam Present: tenderness Comments: Less tender along the mid and right abdomen compared to yesterday. Progress Note: A&P (1) Appendicitis Status: Suspected Assessment and plan: A repeat CT scan does show changes consistent with developing appendicitis. The patient has less pain on the right and has a normal white blood cell count. Despite these discordant findings the risk of foregoing operative intervention is seemingly significant. He will be scheduled for laparoscopic appendectomy later today. Current Visit: Yes (2) Opiate withdrawal Status: Acute Current Visit: Yes (3) Diffuse abdominal pain Status: Acute Current Visit: Yes (4) Left sided abdominal pain Status: Acute Current Visit: Yes (5) Left-sided chest pain Status: Acute Current Visit: Yes
--- NOTE | 2019-04-05 13:50 | Progress Note ---
[facility] Anesthesia Checklist - Structural Data Admitted From: Inpatient Planned Operative Procedure/s: appy Consent for Planned Operative Procedure(s) Verified: Yes - Additional verifications Anesthesia Reactions: No - Airway Assessment C-Spine Mobility Assessed: Yes TMJ Mobility Assessed: Yes Dentition: Edentulous - Neurological Assessment Level of Consciousness: Awake, Alert, Appropriate Hx Seizures: Yes (been a long time since had 1) - Anesthesia Plan Anesthesia Risk discussed: Yes Anesthesia Plan: Verified ASA Class: III Anesthesia Type: General [facility] History I have reviewed the patient's past medical history: Yes Medical History: Reports:: Atrial Fibrillation, Chronic Obstructive Pulmonary Di sease (COPD), Gastroesophageal Reflux Disease(GERD), Hyperlipidemia, Hypertension, MRSA, Pulmonary Embolism, Seizures Denies:: Cancer, Diabetes Mellitus Type 1, Diabetes Mellitus Type 2, Internal Pacemaker *Have you ever received a pneumonia vaccine?: Yes *Have you received a flu vaccine this season?: Yes Other Medical History: Reports: Arthritis Anesthesia experience/problems:: yes but hes not sure what problems were Other Surgeries: Yes: Colonoscopy, Other (Lumbar sx X3). No: Pacemaker Amputation: No Fractures: No - *Social History Educational Level: Attended Grade School Smoking Status: Former smoker Tobacco Type: cigarettes # Packs/Day (cigarettes): 1 #Yrs smoked (if former smoker): 30 Smoking End Date: 20 years ago Alcohol Intake: never Substance Use Type: unknown *Occupational Status:: disabled Housing: house Household Members: none *Travel in the last 8 weeks: None Family Hx:: Heart Attack, Hyperlipidemia
--- NOTE | 2019-04-05 14:55 | Operative Note ---
Date of procedure: 04/05/19 Pre-op Diagnosis:: Appendicitis Post-op Diagnosis:: Same Procedure performed:: Laparoscopic appendectomy Surgeon:: [place] August MD CREW MEMBER:: Jeffrey Ray Anesthesia: GETA Estimated blood loss (mL): 15 Operative findings:: Inflamed appendix with no sign of perforation Thickened/widened appendiceal base with inflammatory changes projecting to the cecum and small bowel Mid appendiceal fecalith Moderate periappendiceal fat stranding Mid appendix and appendiceal tip projecting laterally and posteriorly with dense adhesions to colon and small bowel Operative note:: After informed consent was obtained the patient was taken to the operating room and placed in the supine position. General anesthesia was induced and his abdomen was prepped and draped in a sterile fashion. After infiltration local anesthetic an infraumbilical incision was made. A Veress needle was placed in position. The abdomen was insufflated. A 12 mm optical trocar was placed in position. Under direct visualization a 5 mm trocar was placed in the suprapubic position and an additional 5 mm trocar was placed in the left lower quadrant. The appendix projected laterally and posteriorly with dense adhesions throughout. The base of the appendix was very widened. Dissection was very difficult. No obvious perforation noted. A combination of sharp dissection, blunt dissection, and harmonic thierry were utilized to transect the inflammatory adhesions attached to the appendix. The adhesions were very dense and notably involved both the small bowel and the colon along the projection of the mid and distal appendix. The entire base of the colon and the terminal ileum are also somewhat inflamed. No obvious injury to the colon or small bowel was noted. As the appendix was elevated and a small window was made with the harmonic thierry in the mesoappendix the Endopath stapler was utilized to transect the base. The appendix was then carefully elevated as dissection at the serosal margin continued along the mid and then distal appendix. The tip of the appendix in particular was very inflamed and severely adhered to the small bowel and colon. This was carefully with blunt dissection. No sign of obvious bowel injury or bleeding noted. During the dissection traction on the appendix created a point of transection. The majority of the appendix was placed in a retrieval bag and removed through the infraumbilical trocar site. The appendiceal tip was then elevated with completion of dissection to separate it from surrounding tissue. The appendiceal tip was placed in a retrieval bag and removed through the infraumbilical trocar site. No obvious fecal spillage was noted. No sign of injury or bleeding noted. The right lower quadrant was thoroughly irrigated. The fascia at the infraumbilical trocar site was reapproximated with 0 Ethibond. The remaining trocars were removed. All wounds were irrigated and skin was closed with 4-0 Monocryl in a subcuticular fashion. Condition: stable Disposition: PACU Specimens:: Appendix Complications:: No immediate
--- NOTE | 2019-04-05 14:57 | Progress Note ---
[facility] Anesthesia Record Part I Intake, IV Amount: 1,500 Estimated blood loss (mL): 0 Urine output (mL): 250 Blood Pressure: 138/80 SaO2: 93 Pulse Rate: 104 Respiratory Rate: 12 Temperature: 97.4 F Patient is:: Awake, Stable
--- NOTE | 2019-04-05 17:24 | Electrocardiograph Report ---
APPROVED REPORT Exam: Resting ECG HR:91 bpm ECG Measurements Heart Rate 91 AXES TX 160 P 67 QRSd 72 QRS 12 QT 336 T48 QTc 413 <Conclusion> Normal sinus rhythm Normal ECG Electronically signed by : Antonio Gay, 04/05/2019 17:24:17
--- NOTE | 2019-04-05 21:13 | Progress Note ---
[facility] Anesthesia Record Part II Discharge Time: 15:20 Destination: Medical Surgical Department PACU nurse assessment reviewed?: Yes Patient Condition:: Good Anesthesia Complications:: None Swallowing reflex intact?: Yes Cyanosis?: No Blood Pressure: 134/72 Pulse Rate: 74 Temperature: 97 F Mental Status: Alert & Oriented Pain level:: 0 Nausea and/or vomitting:: None Intake, IV Amount: 0
[2019-04-06 06:26] LABS: Basophils % 0.5 % (0.1-2.0); Eosinophils # 0.1 K/mm3 (0.0-0.4); Eosinophils % 1.9 % (0.1-12.0); Hematocrit 30.9 % (42.0-52.0); Hemoglobin 10.1 g/dL (14.1-18.0); Lymphocytes # 1.3 K/mm3 (0.7-4.5); Lymphocytes % 22.1 % (10-50); Mean Corpuscular HGB Conc 32.8 g/dL (31.8-35.4); Mean Corpuscular Volume 92.5 fl (80-94); Monocytes # 0.6 K/mm3 (0.1-1.0); Monocytes % 10.5 % (1.7-9.3); Neutrophils # 3.7 K/mm3 (1.8-7.8); Platelet Count 304 K/mm3 (142-424); Red Blood Count 3.34 M/mm3 (4.60-6.20); Red Cell Distribution Width 13.1 % (11.5-17.5); White Blood Count 5.7 K/mm3 (4.8-10.8)
[2019-04-06 06:39] LABS: Anion Gap 11.7 mEq/L (5-15)
--- NOTE | 2019-04-06 07:03 | Progress Note ---
Subjective Patient reports: feels better, still having pain Exam Vital signs and Labs for Last 24 Hours: Temp Pulse Resp BP Pulse Ox 98.6 F 80 20 117/70 97 04/06/19 04:00 04/06/19 04:00 04/06/19 04:00 04/06/19 04:00 04/06/19 04:00 Laboratory Results - last 24 hr 04/05/19 13:30: Urine Color Yellow, Urine Appearance Clear, Urine pH 6.5, Ur Specific [place] 1.020, Urine Protein Negative, Urine Glucose (UA) Negative, Urine Ketones 2+, Urine Blood Negative, Urine Nitrate Negative, Urine Bilirubin Negative, Urine Urobilinogen 0.2, Ur Leukocyte Esterase Negative, Urine RBC 3-5, Urine WBC 5-10, Ur Squamous Epith Cells 3-5, Urine Bacteria 2+ A 04/06/19 06:04: WBC 5.7, RBC 3.34 L, Hgb 10.1 L, Hct 30.9 L, MCV 92.5, MCH 30.4, MCHC 32.8, RDW 13.1, Plt Count 304, MPV 8.0, Neut % (Auto) 65.0, Lymph % (Auto) 22.1, [place] % (Auto) 10.5 H, Eos % (Auto) 1.9, Baso % (Auto) 0.5, Neut # (Auto) 3.7, Lymph # (Auto) 1.3, [place] # (Auto) 0.6, Eos # (Auto) 0.1, Baso # (Auto) 0.0 04/06/19 06:04: Sodium 145, Potassium 3.7, Chloride 110 H, Carbon Dioxide 27, Anion Gap 11.7, BUN 12, Creatinine 0.81, Estimated Creat Clear 107, Estimated GFR 99, Est GFR ( Amer) 120, Glucose 104, Calcium 8.0 L I & O for Last 24 hours: Intake & Output 04/03/19 04/04/19 04/05/19 04/06/19 11:59 11:59 11:59 11:59 Intake Total 300 / 300 2102 / 2102 4077 / 4077 Output Total 1425 / 1425 325 / 325 Balance 300 / 300 677 / 677 3752 / 3752 Weight 160 lb 4 oz 162 lb 6 oz - Constitutional no acute distress - *Routine Respiratory Exam Absent: respiratory distress - *Routine Cardiovascular Exam Present: RRR - *Routine Abdominal Exam Comments: Dressings intact. No spreading cellulitis. Postoperative tenderness. Progress Note: A&P (1) Appendicitis Status: Suspected Assessment and plan: Overall, doing fairly well status post laparoscopic appendectomy. Slowly advance diet Increase ambulation Complete short course of antibiotics as the appendix was unable be removed as a single unit Current Visit: Yes (2) Opiate withdrawal Status: Acute Current Visit: Yes (3) Diffuse abdominal pain Status: Acute Current Visit: Yes (4) Left sided abdominal pain Status: Acute Current Visit: Yes (5) Left-sided chest pain Status: Acute Current Visit: Yes
--- NOTE | 2019-04-06 07:10 | Progress Note ---
Internal Medicine - PN: Subj *Date: 04/06/19 *Time: 07:07 Interval history: Patient reports improvement in all areas of abdominal pain. He has had some abdominal distention is usually relieved with passing flatus. He is urinating frequently. Nursing reports an episode overnight of decreased O2 sats. Patient denies shortness of breath this morning. Exam Vital signs and Labs for Last 24 Hours: Temp Pulse Resp BP Pulse Ox 98.6 F 80 20 117/70 97 04/06/19 04:00 04/06/19 04:00 04/06/19 04:00 04/06/19 04:00 04/06/19 04:00 Laboratory Results - last 24 hr 04/05/19 13:30: Urine Color Yellow, Urine Appearance Clear, Urine pH 6.5, Ur Specific [place] 1.020, Urine Protein Negative, Urine Glucose (UA) Negative, Urine Ketones 2+, Urine Blood Negative, Urine Nitrate Negative, Urine Bilirubin Negative, Urine Urobilinogen 0.2, Ur Leukocyte Esterase Negative, Urine RBC 3-5, Urine WBC 5-10, Ur Squamous Epith Cells 3-5, Urine Bacteria 2+ A 04/06/19 06:04: WBC 5.7, RBC 3.34 L, Hgb 10.1 L, Hct 30.9 L, MCV 92.5, MCH 30.4, MCHC 32.8, RDW 13.1, Plt Count 304, MPV 8.0, Neut % (Auto) 65.0, Lymph % (Auto) 22.1, [place] % (Auto) 10.5 H, Eos % (Auto) 1.9, Baso % (Auto) 0.5, Neut # (Auto) 3.7, Lymph # (Auto) 1.3, [place] # (Auto) 0.6, Eos # (Auto) 0.1, Baso # (Auto) 0.0 04/06/19 06:04: Sodium 145, Potassium 3.7, Chloride 110 H, Carbon Dioxide 27, Anion Gap 11.7, BUN 12, Creatinine 0.81, Estimated Creat Clear 107, Estimated GFR 99, Est GFR ( Amer) 120, Glucose 104, Calcium 8.0 L I & O for Last 24 hours: Intake & Output 04/03/19 04/04/19 04/05/19 04/06/19 11:59 11:59 11:59 11:59 Intake Total 300 / 300 2102 / 2102 4077 / 4077 Output Total 1425 / 1425 325 / 325 Balance 300 / 300 677 / 677 3752 / 3752 Weight 160 lb 4 oz 162 lb 6 oz 168 lb 9 oz Narrative: Patient appears much more comfortable. Lungs have some rales in the lateral left lower lung. Heart is a regular rate and rhythm. Abdomen is mildly distended. There is very little left upper quadrant tenderness. Bowel sounds are present Assessment and Plan (1) Appendicitis Current visit: Yes Status: Acute Category: Medical Code(s): K37 - Unspecified appendicitis (2) Opiate withdrawal Current visit: Yes Status: Acute Category: Medical Code(s): F11.23 - Opioid dependence with withdrawal (3) Diffuse abdominal pain Current visit: Yes Status: Acute Category: Medical Code(s): R10.84 - Generalized abdominal pain (4) Left sided abdominal pain Current visit: Yes Status: Acute Category: Medical Code(s): R10.9 - Unspecified abdominal pain (5) Left-sided chest pain Current visit: Yes Status: Acute Category: Medical Code(s): R07.9 - Chest pain, unspecified (6) Left lower lobe pneumonia Current visit: Yes Status: Acute Category: Medical Code(s): J18.9 - Pneumonia, unspecified organism - Assessment and plan all Dx Assessment and Plan for all problems:: 1. Decrease IV fluids 2. Continue incentive spirometry and increase ambulation 3. Decrease frequency of patient's Dilaudid 4. Advancement of diet will be deferred to Dr. Silva. 5. Continue IV Unasyn
--- NOTE | 2019-04-07 07:04 | Progress Note ---
Subjective Patient reports: feels better Narrative: He wants to go home. Exam Vital signs and Labs for Last 24 Hours: Temp Pulse Resp BP Pulse Ox 98.6 F 76 19 138/70 94 L 04/07/19 04:00 04/07/19 04:00 04/07/19 04:00 04/07/19 04:00 04/07/19 06:31 I & O for Last 24 hours: Intake & Output 04/04/19 04/05/19 04/06/19 04/07/19 11:59 11:59 11:59 11:59 Intake Total 300 / 300 2102 / 2102 4557 / 4557 3592 / 3592 Output Total 1425 / 1425 325 / 325 1300 / 1300 Balance 300 / 300 677 / 677 4232 / 4232 2292 / 2292 Weight 160 lb 4 oz 162 lb 6 oz 168 lb 9 oz 174 lb 3 oz Microbiology Reports for the Last 24 Hours: Microbiology 04/06/19 07:30 Sputum - Expectorated Sputum Gram Stain - Final 04/05/19 13:30 Urine,Catheterized Urine Culture - Preliminary NO GROWTH AFTER 24 HOURS 04/04/19 10:30 Blood Blood Culture - Preliminary NO GROWTH AFTER 48 HOURS 04/04/19 10:30 Blood Blood Culture - Preliminary NO GROWTH AFTER 48 HOURS - Constitutional no acute distress - *Routine Cardiovascular Exam Present: RRR - *Routine Abdominal Exam Present: soft, tenderness Progress Note: A&P (1) Appendicitis Status: Acute Assessment and plan: Overall, doing fairly well status post laparoscopic appendectomy. Complete short course of antibiotics secondary to intraoperative transection Continue to slowly advance diet Likely discharge home soon with close outpatient follow-up Current Visit: Yes (2) Opiate withdrawal Status: Acute Current Visit: Yes (3) Diffuse abdominal pain Status: Acute Current Visit: Yes (4) Left sided abdominal pain Status: Acute Current Visit: Yes (5) Left-sided chest pain Status: Acute Current Visit: Yes (6) Left lower lobe pneumonia Status: Acute Current Visit: Yes
--- NOTE | 2019-04-07 07:11 | Progress Note ---
Internal Medicine - PN: Subj *Date: 04/07/19 *Time: 07:08 Interval history: Patient's only concern this morning is some restriction to his breathing. Patient has underlying COPD and has been without his controller medicine since admission until yesterday evening. Otherwise he feels well. He has had a bowel movement. He is urinating frequently. He is tolerating his soft diet. Exam Vital signs and Labs for Last 24 Hours: Temp Pulse Resp BP Pulse Ox 98.6 F 76 19 138/70 94 L 04/07/19 04:00 04/07/19 04:00 04/07/19 04:00 04/07/19 04:00 04/07/19 06:31 I & O for Last 24 hours: Intake & Output 04/04/19 04/05/19 04/06/19 04/07/19 11:59 11:59 11:59 11:59 Intake Total 300 / 300 2102 / 2102 4557 / 4557 3592 / 3592 Output Total 1425 / 1425 325 / 325 1300 / 1300 Balance 300 / 300 677 / 677 4232 / 4232 2292 / 2292 Weight 160 lb 4 oz 162 lb 6 oz 168 lb 9 oz 174 lb 3 oz Microbiology Reports for the Last 24 Hours: Microbiology 04/06/19 07:30 Sputum - Expectorated Sputum Gram Stain - Final 04/05/19 13:30 Urine,Catheterized Urine Culture - Preliminary NO GROWTH AFTER 24 HOURS 04/04/19 10:30 Blood Blood Culture - Preliminary NO GROWTH AFTER 48 HOURS 04/04/19 10:30 Blood Blood Culture - Preliminary NO GROWTH AFTER 48 HOURS Narrative: Patient is in no distress. He sitting up on the side of the bed. Lungs have expiratory wheezes throughout with fair aeration. Heart has a regular rate and rhythm. Abdomen is soft with mild distention and bowel sounds are present Assessment and Plan (1) Appendicitis Current visit: Yes Status: Acute Category: Medical Code(s): K37 - Unspecified appendicitis (2) Opiate withdrawal Current visit: Yes Status: Acute Category: Medical Code(s): F11.23 - Opioid dependence with withdrawal (3) Diffuse abdominal pain Current visit: Yes Status: Acute Category: Medical Code(s): R10.84 - Generalized abdominal pain (4) Left sided abdominal pain Current visit: Yes Status: Acute Category: Medical Code(s): R10.9 - Unspecified abdominal pain (5) Left-sided chest pain Current visit: Yes Status: Acute Category: Medical Code(s): R07.9 - Chest pain, unspecified (6) Left lower lobe pneumonia Current visit: Yes Status: Acute Category: Medical Code(s): J18.9 - Pneumonia, unspecified organism - Assessment and plan all Dx Assessment and Plan for all problems:: 1. Await CBC. If CBC is unchanged than discharge patient home. He will continue a course of oral antibiotics for his suspected pneumonia. Follow-up with me in 1 week. Follow-up with surgical service in 1 week.
--- NOTE | 2019-04-07 07:18 | Discharge Summary ---
General - General Admission date:: 04/04/19 Discharge date: 04/07/19 HPI HPI: 53-year-old male presented to the emergency department this morning with left- sided abdomen and lower chest pain. On March 31 patient underwent a colonoscopy at this facility. Patient was discharged home post procedurally and claims he was told he aspirated while he was under sedation. On Thursday patient contacted my office with complaints of cough from his "aspiration" and requested antibiotic prescription be sent to his pharmacy. Patient also felt congested symptoms in the left lung. Augmentin was called in and in less than 48 hours patient's congested chest symptoms had improved. However abdominal pain began to develop on ThursdayApril 02. Patient had associated left-sided pain along with nausea but no vomiting and diarrhea. Patient tells me that he had been without his prescription opiate pain medicine which he takes for chronic pain on Thursday. Patient takes Opana ER 40 mg twice daily. His last dose was evening. His pharmacy did not have his medication in stock and so he has been without that medication since April 01. GI symptoms increased on Thursday. Since that time stools have been loose. He denies blood in his stool. This morning he presented to the emergency department because he could no longer stand the pain. He reports left-sided pain and the patient will hold his left lower ribs and upper abdomen when indicating his area of pain. Patient also tells me that he reported some right sided lower abdominal discomfort as well. Patient was evaluated in the emergency department. He appeared in pain. Labs were unremarkable. A CT scan of the chest performed looking for pulmonary embolism because of patient's history of PEshowed inflammatory versus infectious changes of the left lung. A CT of the abdomen and pelvis performed showed prominent appendix without definitive evidence of appendicitis. Decision was made to admit the patient for monitoring and serial abdominal exams. Hospital Course Hospital Course: 1. Patient was admitted for possible early appendicitis and serial abdominal exams. He required Dilaudid for pain control. 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 A repeat CT scan of the abdomen at that time showed further enlargement of the appendix and inflammatory changes consistent with acute appendicitis. On the afternoon of the the patient was taken to the operating room for laparoscopic appendectomy. Post surgery patient had significant decrease in his abdominal pain. He remained on IV Dilaudid however due to his use of long-acting oxymorphone as an outpatient for his chronic musculoskeletal pain (back pain). He was continued on Unasyn which was felt to cover both his intra-abdominal process and his possible pneumonia. Patient's diet was advanced in the usual fashion. His abdominal pain improved daily. Bowel and bladder function returned without complications. White count remained stable. H&H remained stable. On April 07 patient was discharged home. Patient will follow-up with surgery in 1 week and myself in 1 week. Objective Vital signs: Temp Pulse Resp BP Pulse Ox 98.6 F 76 19 138/70 94 L 04/07/19 04:00 04/07/19 04:00 04/07/19 04:00 04/07/19 04:00 04/07/19 06:31 Results Labs on day of discharge: Preliminary micro results at discharge 04/05/19 13:30 Urine Culture - Preliminary Urine,Catheterized NO GROWTH AFTER 24 HOURS 04/04/19 10:30 Blood Culture - Preliminary Blood NO GROWTH AFTER 48 HOURS 04/04/19 10:30 Blood Culture - Preliminary Blood NO GROWTH AFTER 48 HOURS DS: Diagnosis - Discharge Diagnosis (1) Appendicitis Status: Acute (2) Opiate withdrawal Status: Acute (3) Diffuse abdominal pain Status: Acute (4) Left sided abdominal pain Status: Acute (5) Left-sided chest pain Status: Acute (6) Left lower lobe pneumonia Status: Acute (7) Opioid-induced hyperalgesia Status: Acute Discharge Plan - Patient Discharge Instructions ACTIVITY: Continue current activity DIET: continue same diet Patient Instructions: DI for Surgical Site Infection, Appendectomy -- Laparoscopic Surgery - Follow up Plan Follow up with: [place] MD [Staff Physician] - 1 week Tray Lizarraga MD [Primary Care Provider] - 1 week Disposition: Home, Self-[facility] Medications: Home Medications Medication Instructions Recorded Confirmed Type Oxymorphone HCl [Oxymorphone HCl 40 mg PO DAILY 03/31/19 04/04/19 History ER] Albuterol Sulfate [Proair 90 mcg IH Q4-6H 04/04/19 04/04/19 History Respiclick] Apixaban [Eliquis] 5 mg PO BID 04/04/19 04/04/19 History Aspirin [Aspir-Low] 81 mg PO DAILY 04/04/19 04/04/19 History Bisoprolol Fumarate [Bisoprolol 5 mg PO DAILY 04/04/19 04/04/19 History 5mg Tablet] Fluticasone Propionate [Flonase 1 spr NS BID 04/04/19 04/04/19 History 50mcg nasal spray 16gm] Fluticasone/Vilanterol [Breo 1 inh IH DAILY 04/04/19 04/04/19 History Ellipta 100-25 Mcg INH] Furosemide [Lasix 20mg tab] 20 mg PO BID 04/04/19 04/04/19 History Lactulose [Lactulose 10gm/15ml 10 gm PO DAILY 04/04/19 04/04/19 History Oral Soln] Linaclotide [Linzess] 72 mcg PO DAILY 04/04/19 04/04/19 History Meloxicam 15 mg PO DAILY 04/04/19 04/04/19 History Naloxone HCl [Narcan] 4 mg NS Q2M PRN 04/04/19 04/04/19 History Nitroglycerin [Nitrostat 0.4mg SL 0.4 mg SL Q5M PRN 04/04/19 04/04/19 History Tablet] Omeprazole [Omeprazole 40mg 40 mg PO DAILY 04/04/19 04/04/19 History Capsule] Potassium Chloride [Klor-con 20 20 meq PO DAILY 04/04/19 04/04/19 History mEq tablet] Pravastatin Sodium [Pravachol] 20 mg PO HS 04/04/19 04/04/19 History Promethazine HCl [Phenergan 25mg 25 mg PO Q6H PRN 04/04/19 04/04/19 History tab] Umeclidinium [place] [Incruse 1 inh INHALATION DAILY 04/04/19 04/04/19 History Ellipta] carBAMazepine [Tegretol] 400 mg PO BID 04/04/19 04/04/19 History risperiDONE [Risperidone] 3 mg PO BID 04/04/19 04/04/19 History Amoxicillin/Potassium Clav 2 tab PO BID #28 tab 04/07/19 Rx [Augmentin 500mg tab] Prescriptions/Medication Reconciliation: New Amoxicillin/Potassium Clav [Augmentin 500mg tab] 2 tab PO BID #28 tab Continued Oxymorphone HCl [Oxymorphone HCl ER] 40 mg PO DAILY Umeclidinium [place] [Incruse Ellipta] 1 inh INHALATION DAILY Aspirin [Aspir-Low] 81 mg PO DAILY Furosemide [Lasix 20mg tab] 20 mg PO BID Nitroglycerin [Nitrostat 0.4mg SL Tablet] 0.4 mg SL Q5M PRN PRN Reason: Chest Pain Potassium Chloride [Klor-con 20 mEq tablet] 20 meq PO DAILY Promethazine HCl [Phenergan 25mg tab] 25 mg PO Q6H PRN PRN Reason: Nausea And Vomiting Naloxone HCl [Narcan] 4 mg NS Q2M PRN PRN Reason: drug use/overdose Fluticasone/Vilanterol [Breo Ellipta 100-25 Mcg INH] 1 inh IH DAILY Bisoprolol Fumarate [Bisoprolol 5mg Tablet] 5 mg PO DAILY Apixaban [Eliquis] 5 mg PO BID Albuterol Sulfate [Proair Respiclick] 90 mcg IH Q4-6H carBAMazepine [Tegretol] 400 mg PO BID risperiDONE [Risperidone] 3 mg PO BID Linaclotide [Linzess] 72 mcg PO DAILY Lactulose [Lactulose 10gm/15ml Oral Soln] 10 gm PO DAILY Meloxicam 15 mg PO DAILY Omeprazole [Omeprazole 40mg Capsule] 40 mg PO DAILY Pravastatin Sodium [Pravachol] 20 mg PO HS Fluticasone Propionate [Flonase 50mcg nasal spray 16gm] 1 spr NS BID - Problem Reconciliation Problems Reviewed?: Yes
[2019-04-07 07:28] LABS: Basophils % 0.5 % (0.1-2.0); Eosinophils # 0.2 K/mm3 (0.0-0.4); Eosinophils % 3.3 % (0.1-12.0); Hematocrit 29.9 % (42.0-52.0); Hemoglobin 9.7 g/dL (14.1-18.0); Lymphocytes # 1.3 K/mm3 (0.7-4.5); Lymphocytes % 21.4 % (10-50); Mean Corpuscular HGB Conc 32.6 g/dL (31.8-35.4); Mean Corpuscular Volume 92.3 fl (80-94); Monocytes # 0.5 K/mm3 (0.1-1.0); Monocytes % 8.3 % (1.7-9.3); Neutrophils # 3.9 K/mm3 (1.8-7.8); Neutrophils % 66.4 % (37.0-80.0); Platelet Count 332 K/mm3 (142-424); Red Blood Count 3.24 M/mm3 (4.60-6.20); Red Cell Distribution Width 13.4 % (11.5-17.5); White Blood Count 5.9 K/mm3 (4.8-10.8)
--- NOTE | 2019-04-07 10:13 | Progress Note ---
Internal Medicine - PN: Subj *Date: 04/07/19 *Time: 10:12 Exam Vital signs and Labs for Last 24 Hours: Temp Pulse Resp BP Pulse Ox 97.5 F L 93 H 18 137/82 95 04/07/19 08:00 04/07/19 08:00 04/07/19 08:00 04/07/19 08:00 04/07/19 08:00 Laboratory Results - last 24 hr 04/07/19 06:25: WBC 5.9, RBC 3.24 L, Hgb 9.7 L, Hct 29.9 L, MCV 92.3, MCH 30.1, MCHC 32.6, RDW 13.4, Plt Count 332, MPV 8.0, Neut % (Auto) 66.4, Lymph % (Auto) 21.4, [place] % (Auto) 8.3, Eos % (Auto) 3.3, Baso % (Auto) 0.5, Neut # (Auto) 3.9, Lymph # (Auto) 1.3, [place] # (Auto) 0.5, Eos # (Auto) 0.2, Baso # (Auto) 0.0 I & O for Last 24 hours: Intake & Output 04/04/19 04/05/19 04/06/19 04/07/19 23:59 23:59 23:59 23:59 Intake Total 1216 / 1216 3984 / 3984 3891 / 4131 1820 / 1820 Output Total 700 / 700 725 / 725 1275 / 1275 350 / 350 Balance 516 / 516 3259 / 3259 2616 / 2856 1470 / 1470 Weight 72.688 kg 73.652 kg 76.459 kg 79.01 kg Microbiology Reports for the Last 24 Hours: Microbiology 04/06/19 07:30 Sputum - Expectorated Sputum Gram Stain - Final 04/06/19 07:30 Sputum - Expectorated Sputum Sputum Culture - Preliminary 04/05/19 13:30 Urine,Catheterized Urine Culture - Preliminary NO GROWTH AFTER 24 HOURS 04/04/19 10:30 Blood Blood Culture - Preliminary NO GROWTH AFTER 48 HOURS 04/04/19 10:30 Blood Blood Culture - Preliminary NO GROWTH AFTER 48 HOURS Assessment and Plan (1) Appendicitis Current visit: Yes Status: Acute Category: Medical Code(s): K37 - Unspecified appendicitis (2) Opiate withdrawal Current visit: Yes Status: Acute Category: Medical Code(s): F11.23 - Opioid dependence with withdrawal (3) Diffuse abdominal pain Current visit: Yes Status: Acute Category: Medical Code(s): R10.84 - Generalized abdominal pain (4) Left sided abdominal pain Current visit: Yes Status: Acute Category: Medical Code(s): R10.9 - Unspecified abdominal pain (5) Left-sided chest pain Current visit: Yes Status: Acute Category: Medical Code(s): R07.9 - Chest pain, unspecified (6) Left lower lobe pneumonia Current visit: Yes Status: Acute Category: Medical Code(s): J18.9 - Pneumonia, unspecified organism (7) Opioid-induced hyperalgesia Current visit: Yes Status: Acute Category: Medical Code(s): R20.8 - Other disturbances of skin sensation; T40.2X5A - Adverse effect of other opioids, initial encounter The patient's infection will respond to the chosen ABx?: Yes Is the patient receiving the right drug, dose, and route?: Yes Could a more targeted ABx be ordered?: No (PATIENT AFEBRILE, WBC WNL, D/C TODAY)
== END 2019-04-07 10:06 | disposition home or self-care (01) | DRG 341 ==
LOC: ER 06:35 → 2ND 06:35 → OBSVTOIN 11:39 → 2ND 11:52
PROVIDERS: ADMIT Family Medicine; ATTEND Family Medicine
CPT/HCPCS: 36415; 71010; 71045; 71275; 74177; 80048; 80053; 81001; 83605; 83690; 84484; 85025; 87040; 87070; 87077; 87086; 87205; 87506; 93005; 94640; 94761; 96367; 96374; 96375; 99284; J0131; J0456; J1335; J2405; Q9967

== ENCOUNTER → 2019-08-15 13:45 | Outpatient (CLI) | payer OTHER, SELFPAY ==
--- NOTE | 2019-08-15 13:49 | MM_ITS ---
PROCEDURE: MM DIG MAMM BI DX W/CAD Digital Breast Tomosynthesis Included CLINICAL INDICATION: LT BREAST MASS felt by the patient for the past couple of months COMPARISON: No exams were available for comparison TECHNIQUE: Standard CC and MLO images and 3D Tomosynthesis was obtained. R2 CAD reviewed. FINDINGS: The right breast has a normal appearance for the male breast composed primarily of fat. There are focal increased glandular elements in the subareolar region left breast with appearance suggestive of gynecomastia. Otherwise the left breast is unremarkable. Suggest patient return for ultrasound left breast for baseline confirmation of suspected gynecomastia. There are couple of benign-appearing microcalcifications in each breast. IMPRESSION: Probable gynecomastia left breast BI-RAD Category: 0 Need Additional Imaging Evaluation FOLLOW-UP: IMM Immediate Follow-up Recommended (A letter has been sent to the patient regarding results of the study.) Dictated by: Dr. Damian Linares MD 08/20/2019 08:[address] Damian Linares MD in [place] 08/20/2019 08:28
--- NOTE | 2019-08-15 13:50 | US_ITS ---
PROCEDURE: US BREAST LT COMPLETE CLINICAL INDICATION: LT BREAST MASS COMPARISON: Mammograms 08/15/2019 FINDINGS: There is a hypoechoic lesion with irregular borders just deep to the nipple and the appearance is certainly consistent with gynecomastia. Limited scanning of the right breast subareolar region showed no abnormality. There are normal appearing nodes in the left axillary region. IMPRESSION: Mammogram findings and ultrasound findings most compatible with gynecomastia involving the left breast, recommend follow-up left mammogram and ultrasound in 6 months to evaluate for interval stability. BI-RADS category 3 Dictated by: Dr. Damian Linares MD 08/23/2019 16:[address] Damian Linares MD in [facility] 08/23/2019 16:10
== END ==
PROVIDERS: PCP Family Medicine; Visit Provider Family Medicine
DX: N63.20 Unspecified lump in the left breast, unspecified quadrant (principal)
CPT/HCPCS: 76641; 77062; 77066; G0279

== ENCOUNTER → 2020-05-28 12:13 | Outpatient (CLI) | payer OTHER, SELFPAY | PROVIDERS: PCP Family Medicine; Visit Provider Family Medicine | DX: J44.9 Chronic obstructive pulmonary disease, unspecified (principal) | CPT/HCPCS: 94618 ==

== ENCOUNTER 2020-08-28 10:24 | Inpatient (IN) | payer OTHER, SELFPAY ==
[2020-08-28] VITALS (19 sets, daily range): BP systolic 92–121; BP diastolic 50–79; PULSE 73–155; RESP 16–23; TEMP 36.8–36.9; O2SAT 93–100; BMI 23.7; BMI 24.0
--- NOTE | 2020-08-28 10:26 | XR_ITS ---
PROCEDURE: XR CHEST PORTABLE CLINICAL HISTORY: chest pain,SOA COMPARISON: CR CXR1 CHEST-PORTABLE from 09/17/[address] ANGIO CHEST from 04/04/2019 CR XR CHEST PORTABLE from 04/04/2019 CR XR CHEST PORTABLE from 04/05/2019 FINDINGS: The cardiomediastinal silhouette and pulmonary vascularity are within normal limits. COPD changes. There is faint increased density in the right upper lobe laterally suggestive of pneumonia. Chronic changes are present bilaterally as well. IMPRESSION: Chronic changes with suspected faint infiltrate in the right upper lobe Dictated by: Dominguez Carvalho MD 08/28/2020 10:54 Dominguez Carvalho MD in [facility] 08/28/2020 10:54
--- NOTE | 2020-08-28 10:28 | ECG_ITS ---
APPROVED REPORT Exam: Resting ECG HR:132 bpm ECG Measurements Heart Rate 132 AXES QRSd 80 QRS -54 QT 270 T 73 QTc 400 Conclusion Undetermined rhythm Left axis deviation RSR' or QR pattern in V1 suggests right ventricular conduction delay Abnormal ECG Electronically signed by : Tray Em, 08/28/2020 17:42:45
--- NOTE | 2020-08-28 10:29 | HMH.EDGENADL ---
ED Disposition Clinical Impression: Rapid atrial fibrillation Community acquired pneumonia Qualifiers: Laterality: right Lung location: unspecified part of lung Qualified Code(s): J18.9 - Pneumonia, unspecified organism Sepsis Qualifiers: Sepsis type: sepsis due to unspecified organism Sepsis acute organ dysfunction status: without acute organ dysfunction Qualified Code(s): A41.9 - Sepsis, unspecified organism Disposition: Admitted As Inpatient Condition on Discharge: Serious Referrals: Provider,Referral, [Referring] - - Critical Care Critical Care Time: Yes Attestation: On , the high probability of a clinically significant, sudden or life threatening deterioration of the following system(s) required my full and direct attention, intervention and personal management. The time I documented below is in addition to time spent performing reported procedures but includes the following listed in this critical care notation. Total Critical Care Time: 40 Vital system(s) involved:: Circulatory Failure My critical care processes included: Assessment & monitoring of V/S, Initial and Re-exams, Data Review/Interpretation, Coordinating Care, Medication Orders and management, Documentation Medical Decision Making - Julius Inquiry Pt receiving controlled substance: No Vital Signs: 08/28/20 10:15 08/28/20 10:30 08/28/20 11:38 Temperature 98.3 F Temperature Source Oral Pulse Rate 111 H Pulse Rate [Right Radial] 155 H Respiratory Rate 20 Blood Pressure 98/67 L 103/70 L Blood Pressure [Right Arm] 92/60 L Blood Pressure Mean 72 76 Blood Pressure Mean [Right Arm] 70 Blood Pressure Source [Right Arm] Automatic Cuff Blood Pressure Position [Right Arm] Sitting 02 Sat by Pulse Oximetry 95 98 96 Oxygen Delivery Method Nasal Cannula Nasal Cannula Nasal Cannula Oxygen Flow Rate (LPM) 4 4 4 08/28/20 11:59 Temperature Temperature Source Pulse Rate 85 Pulse Rate [Right Radial] Respiratory Rate 17 Blood Pressure 110/73 Blood Pressure [Right Arm] Blood Pressure Mean 77 Blood Pressure Mean [Right Arm] Blood Pressure Source [Right Arm] Blood Pressure Position [Right Arm] 02 Sat by Pulse Oximetry 99 Oxygen Delivery Method Oxygen Flow Rate (LPM) - Lab Data Lab Results 08/28/20 10:15: WBC 10.6, RBC 4.17 L, Hgb 11.7 L, Hct 36.8 L, MCV 88.2, MCH 28.1, MCHC 31.8, RDW 14.6, Plt Count 219, MPV 6.9 L, Neut % (Auto) 77.3, Lymph % (Auto) 13.8, [place] % (Auto) 5.5, Eos % (Auto) 3.0, Baso % (Auto) 0.4, Neut # (Auto) 8.2 H, Lymph # (Auto) 1.5, [place] # (Auto) 0.6, Eos # (Auto) 0.3, Baso # (Auto) 0.0 08/28/20 10:15: Sodium 140, Potassium 4.0, Chloride 107, Carbon Dioxide 24, Anion Gap 13.0, BUN 16, Creatinine 0.70, Estimated Creat Clear 117, Estimated GFR 116, Est GFR ( Amer) 141, Glucose 131 H, Calcium 8.4, Troponin I < 0.01 08/28/20 10:15: Magnesium 2.0 08/28/20 10:15: TSH 0.32 L, Free T4 Index 2.5 L, Thyroxine (T4) 6.5, T3 Uptake 38 08/28/20 10:58: Lactate 1.3 Result diagrams: 08/28/20 10:15 08/28/20 10:15 Orders (Tests/Meds): ED MEDICATIONS Generic Name Dose Route Start Last Admin Trade Name Freq PRN Reason Stop Dose Admin Sodium Chloride 2,050 mls @ 1,025 mls/hr 08/28/20 10:53 08/28/20 11:01 Sod Chlor 0.9% 1000ml Bag 30 ml/kg infuse over 2 hr (2050 ml) 08/28/20 12:52 1,025 mls/hr IV Administration .Q2H ONE Ceftriaxone Sodium 1 gm/ 50 mls @ 100 mls/hr 08/28/20 11:00 08/28/20 12:00 Sodium Chloride IV 09/11/20 10:59 100 mls/hr Q24H ARNOLD Administration Protocol Azithromycin 500 mg/ Sodium 250 mls @ 250 mls/hr 08/28/20 11:00 Chloride IV 09/11/20 10:59 Q24H ARNOLD Protocol Discontinued Medications Generic Name Dose Route Start Last Admin Trade Name Freq PRN Reason Stop Dose Admin Iopamidol 70 ml 08/28/20 11:29 08/28/20 11:30 Iopamidol-370 (76%);100ml Bottle IV 08/28/20 11:30 70 ml ONCE ONE Administration Sodium Chloride 50 ml 07
[2020-08-28 10:35] LABS: Chloride 107 mmol/L (98-107); Sodium 140 mmol/L (136-145)
[2020-08-28 10:37] LABS: Basophils % 0.4 % (0.1-2.0); Eosinophils # 0.3 K/mm3 (0.0-0.4); Hematocrit 36.8 % (42.0-52.0); Hemoglobin 11.7 g/dL (14.1-18.0); Lymphocytes # 1.5 K/mm3 (0.7-4.5); Lymphocytes % 13.8 % (10-50); Mean Corpuscular HGB Conc 31.8 g/dL (31.8-35.4); Mean Corpuscular Hemoglobin 28.1 pg (27.0-31.2); Mean Corpuscular Volume 88.2 fl (80-94); Mean Platelet Volume 6.9 fl (7.4-10.4); Monocytes # 0.6 K/mm3 (0.1-1.0); Monocytes % 5.5 % (1.7-9.3); Neutrophils # 8.2 K/mm3 (1.8-7.8); Neutrophils % 77.3 % (37.0-80.0); Platelet Count 219 K/mm3 (142-424); Red Blood Count 4.17 M/mm3 (4.60-6.20); Red Cell Distribution Width 14.6 % (11.5-17.5); White Blood Count 10.6 K/mm3 (4.8-10.8)
[2020-08-28 10:39] LABS: Blood Urea Nitrogen 16 mg/dl (9-20); Calcium 8.4 mg/dl (8.4-10.2); Carbon Dioxide 24 mmol/L (22.0-30.0); Creatinine Clearance Estimated 117 mL/min (50-200); Estimated Glomerular Filt Rate 116 ml/min (>60); GFR (African American) 141 ML/MIN (>60); Glucose 131 mg/dl (74-100)
--- NOTE | 2020-08-28 10:43 | PC.WOUNDNOTE ---
rad in room taking x-rays
[2020-08-28 10:51] LABS: Troponin I < 0.01 ng/ml (0.00-0.034)
[2020-08-28 10:56] LABS: Free Thyroxine Index 2.5 ug/dL (5.93-13.13); T4 (Thyroxine) 6.5 ug/dl (5.53-11.0); Triiodothryronine (T3) Uptake 38 % (23.5-40.5)
--- NOTE | 2020-08-28 10:59 | CT_ITS ---
PROCEDURE: CT ANGIO CHEST PE PROTOCOL CLINCIAL INDICATION: cp, hemoptysis, soa, h/o PE COMPARISON: CT CT ANGIO CHEST from 04/04/2019 TECHNIQUE: IV Contrast: 70ML Isovue 370 Axial images obtained with sagittal and coronal reformats. All CT scans at the facility use one or more dose reduction, viz: automated exposure control, ma/kV adjustment per patient size (including targeted exams where dose is matched to indication, i.e. head), or iterative reconstruction technique. FINDINGS: HEART AND MEDIASTINAL STRUCTURES: No evidence of aortic aneurysm or pulmonary embolus. There is a stable mildly prominent precarinal lymph node and mild adenopathy in the AP window. Increased soft tissue density is present in the right hilar region surrounding the proximal aspect of the right upper lobe bronchus. This is suspicious for neoplastic process. Bronchoscopy is suggested for further evaluation. Reactive adenopathy is an additional consideration. There are stable mildly prominent nodes in the subcarinal region. Soft tissue density in the right hilum however has increased. Small nodes in the left hilum are unchanged. LUNGS AND PLEURAL SPACES: COPD with centrilobular and paraseptal emphysematous changes. Skin scattered parenchymal opacities noted in the right apex and right upper lobe posteriorly suspicious for pneumonia. There are diffuse faint reticular opacities with bronchial thickening noted in the right upper lobe. There are also some faint opacities in the right lower lobe peripherally and posteriorly some of which have a tree in bud pattern suspicious for right-sided pneumonia. BONY STRUCTURES: No acute bony abnormalities apparent. UPPER ABDOMEN: Unremarkable. ADDITIONAL FINDINGS: No other significant abnormalities. IMPRESSION: 1. No evidence of pulmonary embolus. 2. Increased soft tissue density surrounding the right upper lobe bronchus which could be due to neoplastic involvement or reactive adenopathy. Increased soft tissue density in the right hilum also noted which could be neoplastic or reactive. Other nodes are stable in the mediastinum and hilum. Suggest pulmonary consult. 3. COPD with paraseptal and centrilobular emphysema with new scattered peripheral opacities in the right upper lobe, right middle lobe and right lower lobe suspicious for areas of pneumonia. Suggest follow to clear. Dictated by: Dominguez Carvalho MD 08/28/2020 11:52 Dominguez Carvalho MD in [place] 08/28/2020 11:52
[2020-08-28 11:10] LABS: Thyroid Stimulating Hormone 0.32 uIU/mL (0.465-4.68)
[2020-08-28 11:13] LABS: Lactic Acid 1.3 mmol/L (0.7-2.1)
--- NOTE | 2020-08-28 12:12 | PC.NURSE ---
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 umana
--- NOTE | 2020-08-28 12:29 | PC.NURSE ---
TYREE DE LA ROSA spoke with Dr Lizarraga at this time
--- NOTE | 2020-08-28 12:34 | PC.NURSE ---
notified care management of admission, spoke with leonid
--- NOTE | 2020-08-28 12:38 | PC.NURSE ---
bed assignment requested, room 218 SD when room is cleaned, all staff notified
[2020-08-28 13:15] LABS: Coronavirus 19, PCR Not Detected (NotDetected); Influenza A, PCR Not Detected (NotDetected); Influenza B, PCR Not Detected (NotDetected)
--- NOTE | 2020-08-28 14:08 | P.CONPHA_ITS ---
[facility] Pharmacy VTE Monitoring - Patient Demographics Admission date: 08/28/20 Report Date: 08/28/20 Time: 14:08 Allergies/Adverse Reactions: Patient Allergies codeine [CODEINE] Allergy (Mild, Verified 04/12/19 09:52) levofloxacin [From LEVAQUIN] Allergy (Mild, Verified 04/12/19 09:52) methadone [METHADONE] Allergy (Mild, Verified 04/12/19 09:52) fentanyl [From Duragesic] Allergy (Verified 04/12/19 09:52) morphine Allergy (Verified 04/12/19 09:52) Height: 1.73 m Weight: 70.76 kg Patient Problems: Current Active Problems Community acquired pneumonia (Acute) Rapid atrial fibrillation (Acute) Sepsis (Acute) - VTE Risk Labs: VTE Related Lab Results Hgb 11.7 g/dL (14.1-18.0) L 08/28/20 10:15 Hct 36.8 % (42.0-52.0) L 08/28/20 10:15 Plt Count 219 K/mm3 (142-424) 08/28/20 10:15 BUN 16 mg/dl (9-20) 08/28/20 10:15 Creatinine 0.70 mg/dl (0.66-1.25) 08/28/20 10:15 Estimated Creat Clear 117 mL/min (50-200) 08/28/20 10:15 Clinical Trial Participant: No - Prophylaxis VTE Prophylaxis Ordered?: Yes Types of VTE Prophylaxis: TEDS Knee High
--- NOTE | 2020-08-28 14:09 | PC.NURSE ---
report called to kerirn at this time, states she will send staff down to transport pt
--- NOTE | 2020-08-28 14:10 | PC.NURSE ---
cardiazem drip increased to 10mg/hr at this time
--- NOTE | 2020-08-28 14:35 | HMH.PHAINT ---
home medication list verified using list from Dr Lizarraga' office, home pharmacy and pt interview.
[2020-08-28 15:00] LABS: Troponin I < 0.01 ng/ml (0.00-0.034)
--- NOTE | 2020-08-28 15:28 | PC.NURSE ---
Afib with rate 140s continues. Diltiazem gtt increased to 15mg/hr. BP 101/77.
--- NOTE | 2020-08-28 15:44 | ECG_ITS ---
APPROVED REPORT Exam: Resting ECG HR:83 bpm ECG Measurements Heart Rate 83 AXES MO 154 P 74 QRSd 82 QRS 24 QT 330 T 72 QTc 387 Conclusion Sinus rhythm with frequent pacs - pattern of atrial bigeminy Abnormal ECG Electronically signed by : Tray Em, 08/28/2020 17:42:21
--- NOTE | 2020-08-28 15:44 | PC.NURSE ---
1544: rapid red called. Pt HR went from 144 to 20s and then asystole. Cardizem gtt turned OFF. Pt never lost consciousness. Dr. Willett arrived. EKG obtained and read by Dr. Willett who reports that pt is now in junctional bigeminy then converts to NSR. No new orders received. Dr. Lizarraga updated.
--- NOTE | 2020-08-28 16:52 | HMH.RR ---
Acute Rapid Response Note - Subjective Date Responded: 08/28/20 Time Responded: 15:45 Provider Note: Patient was admitted earlier for rapid atrial fibrillation and pneumonia with sepsis. He was on a diltiazem drip without a bolus. Nurses report that he had an episode of bradycardia followed by asystole with spontaneous return of perfusing rhythm after diltiazem drip stopped. Patient says he felt terrible for a little bit but now feels back to normal. No chest pain. 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 He has converted from atrial fibrillation to this rhythm and I suspected that events are related to his conversion and diltiazem. EKG shows no injury pattern. Blood pressure is in the low 100 range. I discussed with Dr. Walker at 4 PM who requested cardiology consult. Diltiazem will remain discontinued. I spoke with Dr. Martinez at 4:10 PM. He will see the patient this evening in the hospital. He requests an echocardiogram, which we called for. - Objective Findings: Vital Signs - Last 4 Hours Temperature 98.4 F 08/28/20 15:23 Temperature Source Oral 08/28/20 15:23 Pulse Rate 126 H 08/28/20 15:30 Respiratory Rate 23 08/28/20 15:30 Blood Pressure 94/52 L 08/28/20 15:30 Blood Pressure Mean 66 08/28/20 15:30 Blood Pressure Source Automatic Cuff 08/28/20 15:30 Blood Pressure Position Supine 08/28/20 15:23 02 Sat by Pulse Oximetry 98 08/28/20 15:30 Oxygen Delivery Method 08/28/20 15:30 Oxygen Flow Rate (LPM) 4 08/28/20 15:30 Lab Results for Past 12 Hours 08/28/20 13:28: Troponin I < 0.01 08/28/20 13:12: SARS-CoV-2 (PCR) Not detected, Influenza A Untype (PCR) Not detected, Influenza Type B (PCR) Not detected 08/28/20 10:58: Lactate 1.3 08/28/20 10:15: TSH 0.32 L, Free T4 Index 2.5 L, Thyroxine (T4) 6.5, T3 Uptake 38 08/28/20 10:15: Magnesium 2.0 08/28/20 10:15: Sodium 140, Potassium 4.0, Chloride 107, Carbon Dioxide 24, Anion Gap 13.0, BUN 16, Creatinine 0.70, Estimated Creat Clear 117, Estimated GFR 116, Est GFR ( Amer) 141, Glucose 131 H, Calcium 8.4, Troponin I < 0.01 08/28/20 10:15: WBC 10.6, RBC 4.17 L, Hgb 11.7 L, Hct 36.8 L, MCV 88.2, MCH 28.1, MCHC 31.8, RDW 14.6, Plt Count 219, MPV 6.9 L, Neut % (Auto) 77.3, Lymph % (Auto) 13.8, [place] % (Auto) 5.5, Eos % (Auto) 3.0, Baso % (Auto) 0.4, Neut # (Auto) 8.2 H, Lymph # (Auto) 1.5, [place] # (Auto) 0.6, Eos # (Auto) 0.3, Baso # (Auto) 0.0 My Orders Category Date Time Status telephone lineman ONGOING Care 08/28/20 10:28 Active Communication order ONCE Care 08/28/20 10:54 Completed DTA [Decision to Admit] Stat Care 08/28/20 12:34 Ordered ED EKG ONCE Care 08/28/20 10:26 Completed Oxygen, Apply Nasal Cannula 4 lpm Care 08/28/20 10:27 Active Saline Lock Insertion ONCE Care 08/28/20 10:26 Completed CTA Chest [CT angio chest PE protocol] Stat Cat Scan 08/28/20 10:59 Completed Cardiac Diet Diet 08/28/20 Dinner Active XR chest portable Stat Exams 08/28/20 10:26 Completed Basic Metabolic Panel Stat Lab 08/28/20 10:15 Completed Complete Blood Count Auto Diff Stat Lab 08/28/20 10:15 Completed Lactic Acid Stat Lab 08/28/20 10:58 Completed Magnesium Stat Lab 08/28/20 10:15 Completed Rapid PCR Covid and Flu A/B Stat Lab 08/28/20 13:12 Completed Thyroid Panel Stat Lab 08/28/20 10:15 Completed Troponin I Q3H Lab 08/28/20 13:28 Completed Troponin I Stat Lab 08/28/20 10:15 Completed 0.9 % Sodium Chloride [RAD-NS 50mL Vial] Med 08/28/20 11:29 Discontinued 50 ml IV ONCE ONE 0.9 % Sodium Chloride [RAD-Saline Flush 10mL Syringe] Med 08/28/20 11:29 Discontinued 10 ml IV ONCE ONE 0.9 % Sodium Chloride [Sod Chlor 0.9% 1000mL Bag] 1,000 Med 08/28/20 12:45 Discontinued ml IV 150 mls/hr 0.9 % Sodium Chloride [Sod Chlor 0.9% 1000mL Bag] 1,000 Med 08/28/20 13:34 Active ml IV 75 mls/hr 0.9 % Sodium Chloride [Sod Chlor 0.9% 1000mL Bag] ,00
--- NOTE | 2020-08-28 16:59 | HMH.HP ---
*Admission Date: 08/28/20 *Chief complaint: Fast heart rate *History of present illness: 55-year-old male with COPD, atrial fibrillation, history of venous thromboembolism requiring chronic anticoagulation presented to the emergency department with sensation of racing heart. He reports awakening Thursday morning August 27 and feeling chilled. Throughout the day he had episodes where he felt like his heart was racing. As the day progressed he began to feel worse. This morning upon awakening the sensation of racing heart was constant. This is when he contacted EMS. Regarding respiratory symptoms because of some right-sided chest discomfort and history of pneumonia in the right lung patient had contacted my office yesterday and requested an antibiotic. Patient was prescribed azithromycin in anticipation of outpatient follow-up within 48 hours. He reports right-sided chest pain mild increase in cough but no significant increase in shortness of breath above baseline. On arrival to the emergency department patient underwent evaluation and was found to be in A. fib with rapid ventricular response and CT scan of the chest showed pneumonic infiltrates in the right lung. Patient was given a fluid bolus and started on IV maintenance fluids with low-dose Cardizem drip. Patient was also started on Rocephin and azithromycin for his pneumonia. [facility] patient developed a change in his atrial fibrillation with evidence of bigeminy followed by brief asystole. A rapid response read was called. Patient was conscious during the evaluation. He does report a sensation of feeling faint at the same time that his asystole was detected. Patient claims this happens approximately once per week at home. Patient has long history of atrial fibrillation initially diagnosed in 2014. At that time echocardiogram revealed a normal ejection fraction with difficult to visualize left atrium. Patient is undergone outpatient stress testing with abnormal Myoview followed by left heart catheterization in 2014 which showed no obstructive disease but raised left ventricular end-diastolic pressure. Since admission patient has undergone repeat echocardiogram. Results are pending [facility] History I have reviewed the patient's past medical history: Yes Medical History: Reports:: Atrial Fibrillation, Chronic Obstructive Pulmonary Disease (COPD), Gastroesophageal Reflux Disease(GERD), Hyperlipidemia, Hypertension, MRSA, Pulmonary Embolism, Seizures Denies:: Cancer, Diabetes Mellitus Type 1, Diabetes Mellitus Type 2, Internal Pacemaker *Have you ever received a pneumonia vaccine?: No *Have you received a flu vaccine this season?: No Other Medical History: Reports: Arthritis Other Surgeries: Yes: Cholecystectomy, Colonoscopy, Other (Lumbar sx X3). No: Pacemaker Amputation: No Fractures: No - *Social History Smoking Status: Former smoker Tobacco Type: cigarettes # Packs/Day (cigarettes): 1 #Yrs smoked (if former smoker): 30 Alcohol Intake: never Substance Use Type: denies use *Occupational Status:: disabled Housing: house Household Members: none *Travel in the last 8 weeks: None Family Hx:: Unable to obtain Review of Systems - Constitutional Reports chills, Denies anorexia, Denies body ache(s) - Eyes Denies blurry vision, Denies change in vision - ENT Denies difficulty swallowing - *Cardiovascular Reports rapid, pounding, or irregular heartbeat, Denies chest pain, Denies generalized swelling - *Respiratory Reports change in phlegm color, Reports chest congestion, Reports cough, Reports shortness of breath - *Gastrointestinal Denies abdominal pain - *Genitourinary Denies difficulty urinating - *Musculoskeletal Denies abnormal walking - Integumentary/Breasts Denies hair loss - *Neurologic Reports abnormal walking Meds Home Medications Medication Instructions Recorded Confirmed Type Oxymorphone HCl [Oxymorphone HCl 40 mg PO BIDP
[2020-08-28 19:11] LABS: Procalcitonin 0.674 ng/mL (0.0-2.0)
--- NOTE | 2020-08-28 19:57 | PC.NURSE ---
INDUCED WITH 3% SODIUM CHLORIDE. INSTRUCTED PT TO COUGH. PT UNABLE TO COUGH. LEFT SPUTUM CUP AT BESIDE.
--- NOTE | 2020-08-28 20:39 | PC.NURSE ---
He is A&Ox4. NSR on telemetry. Continues on 4LPM n/c. He reports back and neck pain and rates it 01/02. States it won't go away. Received PRN pain medication. He reports that his back hurts with the HOB elevated but he was too comfortable to turn over to lower the head of his bed. Assisted with lowering the head of his bed. Turns himself independently. He reports that his eyes won't quit running, burning. Sclera are white but does have clear watery drainage present. Was offered tissue but he refused it stating it was like nails on a chalkboard and that he could not touch it. Asked him about touching toilet paper and he stated barely believe that.
[2020-08-29] VITALS (16 sets, daily range): BP systolic 110–158; BP diastolic 49–88; PULSE 41–74; RESP 16–18; TEMP 36.3–37; O2SAT 92–100; BMI 25.0
--- NOTE | 2020-08-29 03:55 | PC.NURSE ---
His pulse is 47 at this time.
[2020-08-29 06:55] LABS: Procalcitonin 0.393 ng/mL (0.0-2.0)
--- NOTE | 2020-08-29 07:08 | P.PN_ITS ---
Internal Medicine - PN: Subj *Date: 08/29/20 *Time: 07:08 Interval history: Patient has no complaints this morning and would like to be discharged. Telemetry monitoring overnight showed sinus rhythm and sinus bradycardia while patient was asleep. When I entered the room patient's pulse rate is 47 while he is asleep but once he awakens pulse quickly rises to the 70s. Patient notes improvement in shortness of breath. He denies chest pain. Exam Vital signs and Labs for Last 24 Hours: Temp Pulse Resp BP Pulse Ox 97.5 F L 51 L 16 157/88 H 92 L 08/29/20 04:13 08/29/20 06:00 08/29/20 00:00 08/29/20 06:00 08/29/20 06:00 Laboratory Results - last 24 hr 08/28/20 10:15: WBC 10.6, RBC 4.17 L, Hgb 11.7 L, Hct 36.8 L, MCV 88.2, MCH 28.1, MCHC 31.8, RDW 14.6, Plt Count 219, MPV 6.9 L, Neut % (Auto) 77.3, Lymph % (Auto) 13.8, [place] % (Auto) 5.5, Eos % (Auto) 3.0, Baso % (Auto) 0.4, Neut # (A uto) 8.2 H, Lymph # (Auto) 1.5, [place] # (Auto) 0.6, Eos # (Auto) 0.3, Baso # (Auto) 0.0 08/28/20 10:15: Sodium 140, Potassium 4.0, Chloride 107, Carbon Dioxide 24, Anion Gap 13.0, BUN 16, Creatinine 0.70, Estimated Creat Clear 117, Estimated GFR 116, Est GFR ( Amer) 141, Glucose 131 H, Calcium 8.4, Troponin I < 0.01 08/28/20 10:15: Magnesium 2.0 08/28/20 10:15: TSH 0.32 L, Free T4 Index 2.5 L, Thyroxine (T4) 6.5, T3 Uptake 38 08/28/20 10:15: Procalcitonin 0.674 08/28/20 10:58: Lactate 1.3 08/28/20 13:12: SARS-CoV-2 (PCR) Not detected, Influenza A Untype (PCR) Not detected, Influenza Type B (PCR) Not detected 08/28/20 13:28: Troponin I < 0.01 I & O for Last 24 hours: Intake & Output 08/26/20 08/27/20 08/28/20 08/29/20 11:59 11:59 11:59 11:59 Intake Total 5879 / 5879 Output Total 920 / 920 Balance 4959 / 4959 Weight 156 lb 165 lb 9 oz Narrative: Patient looks comfortable. Heart has a regular rate and rhythm. Lungs are distant but clear and without wheezes Assessment and Plan (1) Rapid atrial fibrillation Status: Acute Category: Medical Code(s): I48.91 - Unspecified atrial fibrillation (2) Sick sinus syndrome Status: Suspected Category: Medical Code(s): I49.5 - Sick sinus syndrome (3) Community acquired pneumonia Status: Acute Qualifiers: Laterality: right Lung location: unspecified part of lung Qualified Co de(s): J18.9 - Pneumonia, unspecified organism Category: Medical Code(s): J18.9 - Pneumonia, unspecified organism - Assessment and plan all Dx Assessment and Plan for all problems:: 1. Cardiology has been consulted for patient's episode of acute bradycardia arrhythmia with asystole that occurred yesterday while the patient was on a Cardizem drip. Patient remained awake during this time. He has made the claim that similar episodes will occur at home where he feels faint but never loses consciousness and estimates this is happening once per week. Patient takes bisoprolol at home as well. Bisoprolol will be held. Cardiology has been consulted for opinion on possible pacemaker versus outpatient evaluation with cardiac monitoring 2. Continue Rocephin, azithromycin, vancomycin for patient's pneumonia
--- NOTE | 2020-08-29 07:53 | HMH.CNCARD ---
History of Present Illness Consult date: 08/29/20 Requesting physician: Tray Lizarraga Consult reason: atrial fibrillation Chief complaint: Sick sinus syndrome History of present illness: 55-year-old male admitted to facility for atrial fibrillation with RVR and pneumonia. After transportation to the floor, patient went into an acute bradycardia arrhythmia with asystole while he was on a Cardizem drip. Patient did not lose consciousness during this event. Cardizem drip was stopped due to the arrhythmia. Tachy-bradycardia syndrome. patient does have history of atrial fibrillation. Patient states he was diagnosed with atrial fibrillation in 2014 in which she was placed on Xarelto. Patient denies any bleeding issues being on Xarelto. In 2014 patient was also noted to have pulmonary emboli. Patient states he has had episodes like this before in which he calls a slumbering effect . Patient states it feels as though he is going to lose consciousness because his heart rate is racing then it begins to slow down. Patient states this has been going on for over a year now. Patient states he has spoken to his PCP regarding this issue. Patient denies chest pain, tightness or pressure. Patient states he does have arthritis in his chest so at times the arthritis will act up. Patient complains of a productive cough due to his pneumonia. States antibiotics are improving his cough. Pneumonia is being managed by PCP. Patient does have history of hypertension which is controlled. This is managed by PCP. security monitor this morning reveals atrial fibrillation with heart rate of 55 bpm. Patient will have intermittent sinus bradycardia to sinus rhythm. Patient does have history of COPD. Patient is dependent on 4 L of O2 by nasal cannula. Preliminary echocardiogram reveals mild to moderate mitral valve regurgitation and trace of tricuspid valve. Ejection fraction noted 50 to 55%. Patient did not have any cardiac events throughout the night. Patient does have history of paranoid schizophrenia. Discussed plan of care with Dr. Martinez. Orders and recommendations are received from Dr. Martinez. We will set patient up for a dual-chamber pacemaker in the a.m. due to tachy-kevin syndrome and bradycardia. Discussed risk and benefits of undergoing the procedure for pacemaker placement with patient. Patient verbalized understanding and is agreeable to procedure. Continue to hold Xarelto until after placement of pacemaker. Patient will need to be n.p.o. after midnight tonight. After placement of permanent pacemaker, medication adjustments may need to be made. Please notify cardiology of any changes in patient status. Thank you for allowing cardiology to participate in the care of this patient. [facility] History I have reviewed the patient's past medical history: Yes Medical History: Reports:: Atrial Fibrillation, Chronic Obstructive Pulmonary Disease (COPD), Gastroesophageal Reflux Disease(GERD), Hyperlipidemia, Hypertension, MRSA, Pulmonary Embolism, Seizures Denies:: Cancer, Diabetes Mellitus Type 1, Diabetes Mellitus Type 2, Internal Pacemaker *Have you ever received a pneumonia vaccine?: No *Have you received a flu vaccine this season?: No Other Medical History: Reports: Arthritis Other Surgeries: Yes: Cholecystectomy, Colonoscopy, Other (Lumbar sx X3). No: Pacemaker Amputation: No Fractures: No - *Social History Smoking Status: Former smoker Tobacco Type: cigarettes # Packs/Day (cigarettes): 1 #Yrs smoked (if former smoker): 30 Alcohol Intake: never Substance Use Type: denies use *Occupational Status:: disabled Housing: house Household Members: none *Travel in the last 8 weeks: None Family Hx:: Unable to obtain Meds Home Medications Medication Instructions Recorded Confirmed Type Oxymorphone HCl [Oxymorphone HCl 40 mg PO BIDP PRN 03/31/19 08/28/20 History ER] Aspirin [Aspir-Low] 81 mg PO DAILY 04/04/19 08/28/20 History Bisop
--- NOTE | 2020-08-29 08:22 | HMH.PHACONS ---
- Pharmacy Consult Date: 08/29/20 Time: 08:22 Referring provider: DR. TENA Reason for Consult:: VANCOMYCIN DOSING Allergies and ADEs:: Allergies Allergy/AdvReac Type Severity Reaction Status Date / Time codeine [CODEINE] Allergy Mild Verified 04/12/19 09:52 levofloxacin [From LEVAQUIN] Allergy Mild Verified 04/12/19 09:52 methadone [METHADONE] Allergy Mild Verified 04/12/19 09:52 fentanyl [From Duragesic] Allergy Verified 04/12/19 09:52 morphine Allergy Verified 04/12/19 09:52 Home Medications:: Home Medications Medication Instructions Recorded Confirmed Type Oxymorphone HCl [Oxymorphone HCl 40 mg PO BIDP PRN 03/31/19 08/28/20 History ER] Aspirin [Aspir-Low] 81 mg PO DAILY 04/04/19 08/28/20 History Bisoprolol Fumarate [Bisoprolol 5 mg PO DAILY 04/04/19 08/28/20 History 5mg Tablet] Fluticasone Propionate [Flonase 2 sprays NS DAILY 04/04/19 08/28/20 History 50mcg nasal spray 16gm] Furosemide [Lasix 20mg tablet] 20 mg PO BID 04/04/19 08/28/20 History Meloxicam 15 mg PO DAILY 04/04/19 08/28/20 History Naloxone HCl [Narcan] 4 mg NS Q2M PRN 04/04/19 08/28/20 History Nitroglycerin [Nitrostat 0.4mg SL 0.4 mg SL Q5M PRN 04/04/19 08/28/20 History Tablet] Omeprazole [Omeprazole 40mg 40 mg PO DAILY 04/04/19 08/28/20 History Capsule] Potassium Chloride [Klor-con 20 20 meq PO DAILY 04/04/19 08/28/20 History mEq tablet] Pravastatin Sodium [Pravachol] 20 mg PO HS 04/04/19 08/28/20 History Promethazine HCl [Phenergan 25mg 25 mg PO Q6HP PRN 04/04/19 08/28/20 History tab] carBAMazepine [Tegretol] 400 mg PO BID 04/04/19 08/28/20 History risperiDONE [Risperidone] 3 mg PO BID 04/04/19 08/28/20 History Albuterol Sulfate [Proair Hfa] 2 puffs IH Q4HP PRN 08/28/20 08/28/20 History Famotidine 40 mg PO HS 08/28/20 08/28/20 History Fluticasone/Salmeterol [Advair 1 inh IH BID 08/28/20 08/28/20 History 250/50mcg Diskus] Rivaroxaban [Xarelto 20mg Tablet*] 20 mg PO DAILY 08/28/20 08/28/20 History Height: 1.73 m Weight: 75.098 kg Laboratory Results:: Laboratory Results - last 24 hr 08/28/20 10:15: WBC 10.6, RBC 4.17 L, Hgb 11.7 L, Hct 36.8 L, MCV 88.2, MCH 28.1, MCHC 31.8, RDW 14.6, Plt Count 219, MPV 6.9 L, Neut % (Auto) 77.3, Lymph % (Auto) 13.8, [place] % (Auto) 5.5, Eos % (Auto) 3.0, Baso % (Auto) 0.4, Neut # (Auto) 8.2 H, Lymph # (Auto) 1.5, [place] # (Auto) 0.6, Eos # (Auto) 0.3, Baso # (Auto) 0.0 08/28/20 10:15: Sodium 140, Potassium 4.0, Chloride 107, Carbon Dioxide 24, Anion Gap 13.0, BUN 16, Creatinine 0.70, Estimated Creat Clear 117, Estimated GFR 116, Est GFR ( Amer) 141, Glucose 131 H, Calcium 8.4, Troponin I < 0.01 08/28/20 10:15: Magnesium 2.0 08/28/20 10:15: TSH 0.32 L, Free T4 Index 2.5 L, Thyroxine (T4) 6.5, T3 Uptake 38 08/28/20 10:15: Procalcitonin 0.674 08/28/20 10:58: Lactate 1.3 08/28/20 13:12: SARS-CoV-2 (PCR) Not detected, Influenza A Untype (PCR) Not detected, Influenza Type B (PCR) Not detected 08/28/20 13:28: Troponin I < 0.01 08/29/20 05:37: Procalcitonin 0.393 Medical History: Reports:: Atrial Fibrillation, Chronic Obstructive Pulmonary Disease (COPD), Gastroesophageal Reflux Disease(GERD), Hyperlipidemia, Hypertension, MRSA, Pulmonary Embolism, Seizures Denies:: Cancer, Diabetes Mellitus Type 1, Diabetes Mellitus Type 2, Internal Pacemaker Assessment and Plan (1) Rapid atrial fibrillation Status: Acute Category: Medical Code(s): I48.91 - Unspecified atrial fibrillation (2) Sick sinus syndrome Status: Suspected Category: Medical Code(s): I49.5 - Sick sinus syndrome (3) Community acquired pneumonia Status: Acute Qualifiers: Laterality: right Lung location: unspecified part of lung Qualified Code(s): J18.9 - Pneumonia, unspecified organism Category: Medical Code(s): J18.9 - Pneumonia, unspecified organism - Assessment and plan all Dx Assessment and Plan for all problems:: Subjective and Objective Data: This is a 55 year old
--- NOTE | 2020-08-29 16:49 | PC.NURSE ---
Pt has slept off and on for most of the shift. lungs are clear, bowel sounds active. skin intact. pt ambulates with cane and standby assist from staff. pt was concerned initially about having pacemaker implanted tomorrow r/t no one to watch his dog bc his sister was in [place]. pt states that he now has the dog being taken care of and is much more relaxed about the procedure. nad noted will monitor.
[2020-08-29 22:00] LABS: Vancomycin,Peak 21.5 ug/ml (11-39)
[2020-08-30] VITALS (28 sets, daily range): BP systolic 116–176; BP diastolic 60–94; PULSE 60–106; RESP 15–20; TEMP 36.3–36.7; O2SAT 96–100; BMI 24.7
--- NOTE | 2020-08-30 | IR_ITS ---
APPROVED REPORT Patient Location: Inpatient Apprentice Plumber: RANDY Delacruz RT (R) PROCEDURES 1. Pocket formation for Permanent Pacemaker Placement. 2. Placement of an atrial sensing and pacing coil into the right atrial appendage. 3. Placement of a ventricular sensing and pacing coil in the right ventricular apex. 4. Permanent Pacemaker Placement. INDICATION Symptomatic Bradycardia Informed consent was obtained prior to the procedure. COMPLICATIONS None Estimated Blood Loss: less than 10ml TECHNIQUE 1% Lidocaine with epinephrine used to anesthetized the left anterior aspect of the chest. Scalpel was used to make the initial cutaneous incision while electrocautery was used to dissect down tinto the fascia. The fascia was lifted off the pectoralis muscle and digitally manipulated creating a pocket for the pacemaker. The patient was then placed in Trendelenburg position and the subclavian vein was accessed twice via the Selinger technique, there are two wires in the vein. A 6 Cam[place]onian sheath was placed under fluoroscopic guidance into the subclavian vein over one of the wires while keeping the other wire in place within the subclavian vein. The dilator was removed from the sheath. Using fluoroscopic guidance, the ventricular lead was placed into the right ventricular apex, screwed and secured into place. Electronic interrogation proved acceptable thresholds and voltage within the lead. Using 3-0 silk, the ventricular lead was then secured into place. Lead was secured to the facia using the 3-0 silk. Following this, the sheath was pealed away. An additional 6 [place] fresh sheath and dilator was placed over the existing wire. Using fluoroscopic guidance, the atrial lead was the placed into the right atrial appendage and screwed and secured in place. Electrical interrogation demonstrated acceptable thresholds and voltage number. The atrial lead was then secured into place using 3-0 silk. 1 gram of Ancef was used to flush the pocket. Following the pacemaker generator being secured to the fascia and in place, Monocryl was used to close the subcutaneous layers while unruly were used to close the cutaneous layer. A pressure dressing was placed and the patient was transferred to the postop holding area in stable condition for postoperative care. INTERROGATION Generator Model number: [employer] RICKEY KNAPP IS-1 L311 Generator Serial number: [id number] Atrial lead model number: Ingevity + IS-1 Postive 7840 Atrial lead serial number: [id number] P-wave: 3.0 mV Impedence: 712 Ohms Threshold: 1.0V @ .4 ms Right Ventricular lead model number: Ingevity + IS -1 7842 Right Ventricular lead serial number: [id number] R-wave: 20 mV Impedence: 850 Ohms Threshold: 0.8 V @.4 ms Pacing Parameters: Mode: DDDR Base/Max Track: 60/130 ppm No diaphragmatic stimulation at 10 volts. IMPRESSION 1. Successful pocket formation for Permanent Pacemaker Placement. 2. Successful placement of an atrial sensing and pacing coil into the right atrial appendage. 3. Successful placement of a ventricular sensing and pacing coil in the right ventricular apex. 4. Successful permanent Pacemaker Placement. PLAN 1. Postop wound care. Electronically signed by : Zak Martinez, 08/30/2020 14:49:54
--- NOTE | 2020-08-30 02:53 | PC.NURSE ---
He has received PRN medication for pain. Previous shift had weaned him to 3LPM n/c but after getting a bath he became short of air. O2 was increased back to 4LPM n/c and he has not reported any SOA since. He has been sinus kevin and NSR on telemetry.
[2020-08-30 05:28] LABS: Vancomycin,Trough 11.4 ug/mL (5.0-10.0)
[2020-08-30 05:58] LABS: Basophils % 0.3 % (0.1-2.0); Eosinophils # 0.2 K/mm3 (0.0-0.4); Eosinophils % 4.5 % (0.1-12.0); Hematocrit 31.7 % (42.0-52.0); Hemoglobin 10.5 g/dL (14.1-18.0); Lymphocytes # 1.6 K/mm3 (0.7-4.5); Lymphocytes % 29.4 % (10-50); Mean Corpuscular Volume 87.9 fl (80-94); Mean Platelet Volume 8.4 fl (7.4-10.4); Monocytes # 0.4 K/mm3 (0.1-1.0); Monocytes % 7.6 % (1.7-9.3); Neutrophils # 3.2 K/mm3 (1.8-7.8); Neutrophils % 58.2 % (37.0-80.0); Platelet Count 162 K/mm3 (142-424); Red Blood Count 3.61 M/mm3 (4.60-6.20); Red Cell Distribution Width 15.4 % (11.5-17.5); White Blood Count 5.5 K/mm3 (4.8-10.8)
[2020-08-30 06:46] LABS: Procalcitonin 0.241 ng/mL (0.0-2.0)
--- NOTE | 2020-08-30 08:20 | XR_ITS ---
PROCEDURE: XR CHEST 2V CLINICAL HISTORY: increased shortness of breath, right sided chest p COMPARISON: CR XR CHEST PORTABLE from 04/04/2019 CR XR CHEST PORTABLE from 04/05/2019 CR XR CHEST PORTABLE from 08/28/[address] ANGIO CHEST PE PROTOCOL from 08/28/2020 FINDINGS: Unremarkable cardiovascular structures. COPD changes with mild pulmonary fibrosis. Scattered opacities are present in both upper lobes suggesting worsening pneumonia compared to the exam of 08/28/2020. No obvious effusions. There is some thickening of the major fissure superiorly on the right. IMPRESSION: COPD with chronic changes with increased pulmonary opacities in both upper lobes suggesting worsening bilateral pneumonia Dictated by: Dominguez Carvalho MD 08/30/2020 10:17 Dominguez Carvalho MD in [place] 08/30/2020 10:17
--- NOTE | 2020-08-30 08:21 | HMH.ACPN2 ---
Internal Medicine - PN: Subj *Date: 08/30/20 *Time: 08:21 Interval history: Patient is scheduled for pacemaker implantation this afternoon. He reports increased shortness of breath and right-sided chest pain. No change in cough. His O2 sats remained in the high 90s on 4 L of oxygen per minute which is his home flow rate Exam Vital signs and Labs for Last 24 Hours: Temp Pulse Resp BP Pulse Ox 98.1 F 65 19 150/76 H 99 08/30/20 07:36 08/30/20 07:36 08/30/20 07:36 08/30/20 07:36 08/30/20 07:36 Laboratory Results - last 24 hr 08/29/20 21:20: Vancomycin Peak 21.5 08/30/20 04:39: Vancomycin Trough 11.4 H 08/30/20 05:42: WBC 5.5 D, RBC 3.61 L, Hgb 10.5 L, Hct 31.7 L, MCV 87.9, MCH 29.0, MCHC 33.0, RDW 15.4, Plt Count 162 D, MPV 8.4, Neut % (Auto) 58.2, Lymph % (Auto) 29.4, [place] % (Auto) 7.6, Eos % (Auto) 4.5, Baso % (Auto) 0.3, Neut # (Auto) 3.2, Lymph # (Auto) 1.6, [place] # (Auto) 0.4, Eos # (Auto) 0.2, Baso # (Auto) 0.0 08/30/20 05:42: Procalcitonin 0.241 I & O for Last 24 hours: Intake & Output 08/27/20 08/28/20 08/29/20 08/30/20 11:59 11:59 11:59 11:59 Intake Total 6239 / 6239 2542 / 2542 Output Total 1495 / 1495 300 / 300 Balance 4744 / 4744 2242 / 2242 Weight 156 lb 165 lb 9 oz 163 lb 3 oz Narrative: Patient is disheveled. He looks depressed. Lung exam reveals increased wheezes in the right lung compared to yesterday. Heart has regular rate and rhythm. Was noted to his resting pulse rate was 60 and with light activity such as moving to the side of the bed his pulse alvin to the 90s. Assessment and Plan (1) Rapid atrial fibrillation Status: Resolved Category: Medical Code(s): I48.91 - Unspecified atrial fibrillation (2) Sick sinus syndrome Status: Suspected Category: Medical Code(s): I49.5 - Sick sinus syndrome (3) Community acquired pneumonia Status: Acute Qualifiers: Laterality: right Lung location: unspecified part of lung Qualified Code(s): J18.9 - Pneumonia, unspecified organism Category: Medical Code(s): J18.9 - Pneumonia, unspecified organism (4) Tachy-kevin syndrome Status: Acute Category: Medical Code(s): I49.5 - Sick sinus syndrome (5) COPD with acute exacerbation Status: Acute Category: Medical Code(s): J44.1 - Chronic obstructive pulmonary disease with (acute) exacerbation - Assessment and plan all Dx Assessment and Plan for all problems:: 1. PA lateral chest x-ray today to assess for progression of pneumonic infiltrates. White blood cell count remains normal and procalcitonin is trending down. Patient will be given IV Solu-Medrol today. Continue 4 times daily Xopenex and Atrovent aerosols 2. Pacemaker this afternoon
[2020-08-30 10:02] LABS: Anion Gap 12.2 mEq/L (5-15); Blood Urea Nitrogen 15 mg/dl (9-20); Calcium 8.2 mg/dl (8.4-10.2); Carbon Dioxide 21 mmol/L (22.0-30.0); Chloride 114 mmol/L (98-107); Creatinine Clearance Estimated 122 mL/min (50-200); Estimated Glomerular Filt Rate 116 ml/min (>60); GFR (African American) 141 ML/MIN (>60); Glucose 86 mg/dl (74-100); Potassium 4.2 mmoL/L (3.5-5.1); Sodium 143 mmol/L (136-145)
--- NOTE | 2020-08-30 10:24 | HMH.PNCARD ---
Subjective Date: 08/30/20 Time: 10:25 Principal diagnosis: tachy-kevin syndrome Interval history: This is a 55-year-old white gentleman who was admitted to the hospital with atrial fibrillation with RVR and pneumonia. The patient was put on a Cardizem drip for the atrial fibrillation. Then after being transferred to the floor the patient was found to have acute bradycardia with a systole while on the Cardizem drip. The Cardizem was then stopped due to the bradycardia. The patient has a history of paroxysmal atrial fibrillation which she was originally diagnosed with back in 2014 and placed on Xarelto. Patient continues to have intermittent sinus bradycardia and sinus rhythm. He has been set up for permanent pacemaker placement secondary to his tachybradycardia syndrome. The patient complains of shortness of breath. He is currently being treated for pneumonia. He states this morning his shortness of breath was a little worse than yesterday. He denies any chest pain or pressure. The patient really is not interested in answering many of my questions this morning. He states that he just wants to take a nap before his pacemaker is placed. He denies any fever, chills, nausea, vomiting, diarrhea, PND or orthopnea. The patient does have a history of paranoid schizophrenia. Exam Vital signs and Labs for Last 24 Hours: Temp Pulse Resp BP Pulse Ox 98.1 F 60 19 150/76 H 99 08/30/20 07:36 08/30/20 08:00 08/30/20 07:36 08/30/20 07:36 08/30/20 07:36 Laboratory Results - last 24 hr 08/29/20 21:20: Vancomycin Peak 21.5 08/30/20 04:39: Vancomycin Trough 11.4 H 08/30/20 05:42: WBC 5.5 D, RBC 3.61 L, Hgb 10.5 L, Hct 31.7 L, MCV 87.9, MCH 29.0, MCHC 33.0, RDW 15.4, Plt Count 162 D, MPV 8.4, Neut % (Auto) 58.2, Lymph % (Auto) 29.4, [place] % (Auto) 7.6, Eos % (Auto) 4.5, Baso % (Auto) 0.3, Neut # (Auto) 3.2, Lymph # (Auto) 1.6, [place] # (Auto) 0.4, Eos # (Auto) 0.2, Baso # (Auto) 0.0 08/30/20 05:42: Procalcitonin 0.241 08/30/20 05:42: Sodium 143, Potassium 4.2, Chloride 114 H, Carbon Dioxide 21 L, Anion Gap 12.2, BUN 15, Creatinine 0.70, Estimated Creat Clear 122, Estimated GFR 116, Est GFR ( Amer) 141, Glucose 86, Calcium 8.2 L I & O for Last 24 hours: Intake & Output 08/27/20 08/28/20 08/29/20 08/30/20 23:59 23:59 23:59 23:59 Intake Total 4918 / 4918 3014 / 3014 849 / 849 Output Total 920 / 920 775 / 875 100 / 100 Balance 3998 / 3998 2239 / 2139 749 / 749 Weight 158 lb 5 oz 165 lb 9 oz 163 lb 3 oz Narrative: Telemetry strip shows sinus rhythm with a rate of 60. - Constitutional no acute distress, average body habitus - *Routine HEENT Exam Head: Present: normocephalic, atraumatic Eye: Present: EOMI, PERRL ENT: Present: mucous membranes moist - *Routine Neck Exam Present: supple, full ROM, normal carotid upstroke. Absent: carotid bruit, lymphadenopathy - *Routine Respiratory Exam Present: wheezes (Expiratory wheezing noted) - *Routine Cardiovascular Exam Present: RRR, Normal S1, Normal S2. Absent: murmur - *Routine Abdominal Exam Present: soft, normoactive bowel sounds. Absent: tenderness, distended - *Routine Extremities Exam Present: full ROM, pulses intact, normal capillary refill. Absent: cyanosis, clubbing, edema - *Routine Skin Exam Present: intact, warm. Absent: erythema, rash - *Routine Neurological Exam Present: alert, oriented X3, CN II-XII intact. Absent: sensory deficit, motor deficit Progress Note: A&P (1) Tachy-kevin syndrome Status: Acute (2) Rapid atrial fibrillation Status: Resolved (3) Sick sinus syndrome Status: Suspected (4) Community acquired pneumonia Status: Acute (5) COPD with acute exacerbation Status: Acute Assessment and Plan for All Diagnoses:: Plan: 1. This is a 55-year-old white gentleman who was admitted to the hospital with atrial fibrillation with RVR pneumonia. The patient was treated with a Cardizem drip and then the patient sub
--- NOTE | 2020-08-30 11:39 | HMH.PHACONS ---
- Pharmacy Consult Date: 08/30/20 Time: 11:39 Referring provider: DR. TENA Reason for Consult:: VANCOMYCIN LEVELS AND DOSE CHANGE Allergies and ADEs:: Allergies Allergy/AdvReac Type Severity Reaction Status Date / Time codeine [CODEINE] Allergy Mild Verified 04/12/19 09:52 levofloxacin [From LEVAQUIN] Allergy Mild Verified 04/12/19 09:52 methadone [METHADONE] Allergy Mild Verified 04/12/19 09:52 fentanyl [From Duragesic] Allergy Verified 04/12/19 09:52 morphine Allergy Verified 04/12/19 09:52 Home Medications:: Home Medications Medication Instructions Recorded Confirmed Type Oxymorphone HCl [Oxymorphone HCl 40 mg PO BIDP PRN 03/31/19 08/28/20 History ER] Aspirin [Aspir-Low] 81 mg PO DAILY 04/04/19 08/28/20 History Bisoprolol Fumarate [Bisoprolol 5 mg PO DAILY 04/04/19 08/28/20 History 5mg Tablet] Fluticasone Propionate [Flonase 2 sprays NS DAILY 04/04/19 08/28/20 History 50mcg nasal spray 16gm] Furosemide [Lasix 20mg tablet] 20 mg PO BID 04/04/19 08/28/20 History Meloxicam 15 mg PO DAILY 04/04/19 08/28/20 History Naloxone HCl [Narcan] 4 mg NS Q2M PRN 04/04/19 08/28/20 History Nitroglycerin [Nitrostat 0.4mg SL 0.4 mg SL Q5M PRN 04/04/19 08/28/20 History Tablet] Omeprazole [Omeprazole 40mg 40 mg PO DAILY 04/04/19 08/28/20 History Capsule] Potassium Chloride [Klor-con 20 20 meq PO DAILY 04/04/19 08/28/20 History mEq tablet] Pravastatin Sodium [Pravachol] 20 mg PO HS 04/04/19 08/28/20 History Promethazine HCl [Phenergan 25mg 25 mg PO Q6HP PRN 04/04/19 08/28/20 History tab] carBAMazepine [Tegretol] 400 mg PO BID 04/04/19 08/28/20 History risperiDONE [Risperidone] 3 mg PO BID 04/04/19 08/28/20 History Albuterol Sulfate [Proair Hfa] 2 puffs IH Q4HP PRN 08/28/20 08/28/20 History Famotidine 40 mg PO HS 08/28/20 08/28/20 History Fluticasone/Salmeterol [Advair 1 inh IH BID 08/28/20 08/28/20 History 250/50mcg Diskus] Rivaroxaban [Xarelto 20mg Tablet*] 20 mg PO DAILY 08/28/20 08/28/20 History Height: 1.73 m Weight: 74.021 kg Laboratory Results:: Laboratory Results - last 24 hr 08/29/20 21:20: Vancomycin Peak 21.5 08/30/20 04:39: Vancomycin Trough 11.4 H 08/30/20 05:42: WBC 5.5 D, RBC 3.61 L, Hgb 10.5 L, Hct 31.7 L, MCV 87.9, MCH 29.0, MCHC 33.0, RDW 15.4, Plt Count 162 D, MPV 8.4, Neut % (Auto) 58.2, Lymph % (Auto) 29.4, [place] % (Auto) 7.6, Eos % (Auto) 4.5, Baso % (Auto) 0.3, Neut # (Auto) 3.2, Lymph # (Auto) 1.6, [place] # (Auto) 0.4, Eos # (Auto) 0.2, Baso # (Auto) 0.0 08/30/20 05:42: Procalcitonin 0.241 08/30/20 05:42: Sodium 143, Potassium 4.2, Chloride 114 H, Carbon Dioxide 21 L, Anion Gap 12.2, BUN 15, Creatinine 0.70, Estimated Creat Clear 122, Estimated GFR 116, Est GFR ( Amer) 141, Glucose 86, Calcium 8.2 L Medical History: Reports:: Atrial Fibrillation, Chronic Obstructive Pulmonary Disease (COPD), Gastroesophageal Reflux Disease(GERD), Hyperlipidemia, Hypertension, MRSA, Pulmonary Embolism, Seizures Denies:: Cancer, Diabetes Mellitus Type 1, Diabetes Mellitus Type 2, Internal Pacemaker Assessment and Plan (1) Tachy-kevin syndrome Status: Acute Category: Medical Code(s): I49.5 - Sick sinus syndrome (2) Rapid atrial fibrillation Status: Resolved Category: Medical Code(s): I48.91 - Unspecified atrial fibrillation (3) Sick sinus syndrome Status: Suspected Category: Medical Code(s): I49.5 - Sick sinus syndrome (4) Community acquired pneumonia Status: Acute Qualifiers: Laterality: right Lung location: unspecified part of lung Qualified Code(s): J18.9 - Pneumonia, unspecified organism Category: Medical Code(s): J18.9 - Pneumonia, unspecified organism (5) COPD with acute exacerbation Status: Acute Category: Medical Code(s): J44.1 - Chronic obstructive pulmonary disease with (acute) exacerbation - Assessment and plan all Dx Assessment and Plan for all problems:: This is a [place]ady [place] follow up dosing not
--- NOTE | 2020-08-30 13:06 | XR_ITS ---
PROCEDURE: XR CHEST PORTABLE CLINICAL HISTORY: Confirm pacemaker/AID placement COMPARISON: CR XR CHEST PORTABLE from 04/05/2019 CR XR CHEST PORTABLE from 08/28/[address] ANGIO CHEST PE PROTOCOL from 08/28/2020 CR XR CHEST 2V from 08/30/2020 FINDINGS: Bipolar pacemaker has been inserted by the left subclavian approach with the lead overlying the right atrium and lead overlying the right ventricle. There is no evidence of pneumothorax. Prominent interstitial markings are once again noted. Skin clips are present in the infraclavicular region on the left IMPRESSION: S/p bipolar pacemaker placement with good lead position and no evidence of pneumothorax Dictated by: Dominguez Carvalho MD 08/30/2020 14:56 Dominguez Carvalho MD in [place] 08/30/2020 14:56
--- NOTE | 2020-08-30 14:30 | PC.NURSE ---
Pt instructed no lifting with his left arm, no raising it above shoulder level and no sudden movements. Pt verbalized understanding.
--- NOTE | 2020-08-30 15:08 | PC.NURSE ---
Pt is alert and oriented x4. Faint expiratory wheezes noted to upper lung [place]. He remains on 4L NC. He reports feeling SOA w/any exertion. O2 sats have stayed consistently stable t/o the shift, in the upper 90's. Pt was concerned that O2 sats were not reading accurate, that they were reading too high. Pulse ox changed and O2 reassessed to reassure patient that reading was accurate. He is s/p pacemaker insertion. Dressing is clean, dry and intact. He has been NSR/paced on telemetry. 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 V/S have been stable thus far and patient is easy to arouse. He has utilized a urinal at bedside, approx 1000mls out of clear, yellow urine. Will continue to monitor.
--- NOTE | 2020-08-30 18:26 | PC.NURSE ---
Pt states he feels much better and is much less short of breath now than he was this morning.
[2020-08-31] VITALS (7 sets, daily range): BP systolic 123–147; BP diastolic 58–86; PULSE 60–98; RESP 18; TEMP 36.6–36.8; O2SAT 97–99; BMI 23.6
--- NOTE | 2020-08-31 04:54 | PC.NURSE ---
He has been in a paced rhythm most of the night but did go into a bigeminy rhythm a couple of times. He received PRN pain medication for back, neck, and pacemaker incision site pain. The pressure DSG is in place on his pacemaker site and is C/D/I. Voiding per urinal. His urine is yellow, clear.
[2020-08-31 05:57] LABS: Basophils % 0.1 % (0.1-2.0); Eosinophils % 0.3 % (0.1-12.0); Hematocrit 29.1 % (42.0-52.0); Hemoglobin 9.7 g/dL (14.1-18.0); Lymphocytes # 1.5 K/mm3 (0.7-4.5); Lymphocytes % 17.7 % (10-50); Mean Corpuscular HGB Conc 33.4 g/dL (31.8-35.4); Mean Corpuscular Hemoglobin 29.1 pg (27.0-31.2); Mean Corpuscular Volume 87.1 fl (80-94); Monocytes # 0.6 K/mm3 (0.1-1.0); Monocytes % 7.2 % (1.7-9.3); Neutrophils # 6.4 K/mm3 (1.8-7.8); Neutrophils % 74.7 % (37.0-80.0); Platelet Count 206 K/mm3 (142-424); Red Blood Count 3.34 M/mm3 (4.60-6.20); Red Cell Distribution Width 15.1 % (11.5-17.5); White Blood Count 8.5 K/mm3 (4.8-10.8)
[2020-08-31 06:05] LABS: Anion Gap 10.3 mEq/L (5-15); Blood Urea Nitrogen 15 mg/dl (9-20); Calcium 8.5 mg/dl (8.4-10.2); Carbon Dioxide 24 mmol/L (22.0-30.0); Chloride 111 mmol/L (98-107); Creatinine Clearance Estimated 136 mL/min (50-200); Estimated Glomerular Filt Rate 139 ml/min (>60); GFR (African American) 168 ML/MIN (>60); Glucose 136 mg/dl (74-100); Potassium 4.3 mmoL/L (3.5-5.1); Sodium 141 mmol/L (136-145)
--- NOTE | 2020-08-31 07:00 | HMH.DCSUM ---
General - General Admission date:: 08/28/20 Discharge date: 08/31/20 HPI HPI: 55-year-old male with COPD, atrial fibrillation, history of venous thromboembolism requiring chronic anticoagulation presented to the emergency department with sensation of racing heart. He reports awakening ThursdayAugust 27 and feeling chilled. Throughout the day he had episodes where he felt like his heart was racing. As the day progressed he began to feel worse. This morning upon awakening the sensation of racing heart was constant. This is when he contacted EMS. Regarding respiratory symptoms because of some right-sided chest discomfort and history of pneumonia in the right lung patient had contacted my office yesterday and requested an antibiotic. Patient was prescribed azithromycin in anticipation of outpatient follow-up within 48 hours. He reports right-sided chest pain mild increase in cough but no significant increase in shortness of breath above baseline. On arrival to the emergency department patient underwent evaluation and was found to be in A. fib with rapid ventricular response and CT scan of the chest showed pneumonic infiltrates in the right lung. Patient was given a fluid bolus and started on IV maintenance fluids with low-dose Cardizem drip. Patient was also started on Rocephin and azithromycin for his pneumonia. [facility] developed a change in his atrial fibrillation with evidence of bigeminy followed by brief asystole. A rapid response read was called. Patient was conscious during the evaluation. He does report a sensation of feeling faint at the same time that his asystole was detected. Patient claims this happens approximately once per week at home. Patient has long history of atrial fibrillation initially diagnosed in 2014. At that time echocardiogram revealed a normal ejection fraction with difficult to visualize left atrium. Patient is undergone outpatient stress testing with abnormal Myoview followed by left heart catheterization in 2014 which showed no obstructive disease but raised left ventricular end-diastolic pressure. Since admission patient has undergone repeat echocardiogram. Results are pending Hospital Course Hospital Course: Patient was admitted for atrial fibrillation and pneumonia. Patient's atrial fibrillation was treated with a low-dose Cardizem drip. Shortly after admission the patient developed bradycardia with brief periods of asystole. Patient remained conscious during this time. Cardizem drip was stopped. Echocardiogram was performed which revealed a normal ejection fraction. Cardiology was consulted. Decision was made to proceed with pacemaker implantation. Patient Xarelto which she takes at home for history of DVT with held. Patient underwent pacemaker implantation on August 30. Pacemaker implantation was uncomplicated. Post procedurally patient noted significant improvement in how he felt overall. Pacemaker site was clean dry and intact. Patient was medically stable and appropriate for discharge. Patient has a long history of COPD with recurring pneumonias in the right lung and history of MRSA pneumonia. Patient was admitted and placed on Rocephin and azithromycin with addition of vancomycin the afternoon of admission. By the following morning patient's respiratory status had improved and was better than most office visits. On August 30 the patient complained of increasing pain in the right lung and shortness of breath. Patient had more wheezing compared to the day before. Patient was taken off oral prednisone and placed on IV Solu-Medrol. By the following morning patient noted improvement in dyspnea. Patient continued to have faint end expiratory wheezes which are not unusual at baseline. Patient was discharged home on prednisone and doxycycline due to history of MRSA Objective Vital signs: Temp Pulse Resp BP Pulse Ox 98.3 F 64 16 147/77
--- NOTE | 2020-08-31 09:15 | HMH.PNCARD ---
Subjective Date: 08/31/20 Time: 07:30 Principal diagnosis: tachy-kevin syndrome Interval history: 55-year-old male who was admitted to the hospital with atrial fibrillation with RVR and pneumonia. Patient did permanent pacemaker placement secondary to his tachy-kevin syndrome yesterday. PPM site of the left upper chest wall noted with pressure dressing intact. No drainage noted on dressing. Patient does have moderate swelling around the site. Patient is currently on Xarelto for anticoagulantion.patient denies chest pain, tightness or pressure. The patient complains of shortness of breath. He is currently being treated for pneumonia. He states this morning his shortness of breath was a little worse than yesterday. Patient states he is ready to go home. Patient denies any dizziness or palpitations. 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 He denies any fever, chills, nausea, vomiting, diarrhea, PND or orthopnea. The patient does have a history of paranoid schizophrenia. Patient was instructed on no lifting of the left arm due to PPM placement. Patient did verbalize understanding. Instructions were given to patient regarding permanent pacemaker. Verbalized understanding. Patient is to continue his home medications. Will have patient follow-up on Thursday in cardiac clinic due to swelling around the pacemaker site. Sutures will need to stay in for at least 7-10 days. Please notify cardiology of any changes in patient status. Instructed patient to call our notify cardiology clinic if signs and symptoms of infection develop especially around the pacemaker site. Patient verbalized understanding. Orders were received from Dr. Martinez. Exam Vital signs and Labs for Last 24 Hours: Temp Pulse Resp BP Pulse Ox 97.9 F 95 H 18 133/86 99 08/31/20 07:49 08/31/20 07:49 08/31/20 07:49 08/31/20 07:49 08/31/20 08:00 Laboratory Results - last 24 hr 08/30/20 05:42: Sodium 143, Potassium 4.2, Chloride 114 H, Carbon Dioxide 21 L, Anion Gap 12.2, BUN 15, Creatinine 0.70, Estimated Creat Clear 122, Estimated GFR 116, Est GFR ( Amer) 141, Glucose 86, Calcium 8.2 L 08/31/20 05:42: Sodium 141, Potassium 4.3, Chloride 111 H, Carbon Dioxide 24, Anion Gap 10.3, BUN 15, Creatinine 0.60 L, Estimated Creat Clear 136, Estimated GFR 139, Est GFR ( Amer) 168, Glucose 136 H D, Calcium 8.5 08/31/20 05:42: WBC 8.5 D, RBC 3.34 L, Hgb 9.7 L, Hct 29.1 L, MCV 87.1, MCH 29.1, MCHC 33.4, RDW 15.1, Plt Count 206 D, MPV 8.0, Neut % (Auto) 74.7, Lymph % (Auto) 17.7, [place] % (Auto) 7.2, Eos % (Auto) 0.3, Baso % (Auto) 0.1, Neut # (Auto) 6.4, Lymph # (Auto) 1.5, [place] # (Auto) 0.6, Eos # (Auto) 0.0, Baso # (Auto) 0.0 I & O for Last 24 hours: Intake & Output 08/28/20 08/29/20 08/30/20 08/31/20 23:59 23:59 23:59 23:59 Intake Total 4918 / 4918 3014 / 3014 1739 / 1979 620 / 620 Output Total 920 / 920 775 / 875 1950 / 1950 380 / 380 Balance 3998 / 3998 2239 / 2139 - 240 / 240 Weight 158 lb 5 oz 165 lb 9 oz 163 lb 3 oz 156 lb 0.9 oz Microbiology Reports for the Last 24 Hours: Microbiology 08/28/20 10:58 Blood Blood Culture - Preliminary NO GROWTH AFTER 48 HOURS 08/28/20 10:58 Blood Blood Culture - Preliminary NO GROWTH AFTER 48 HOURS - Constitutional no acute distress, average body habitus, cooperative - *Routine HEENT Exam Head: Present: normocephalic ENT: Present: mucous membranes moist - *Routine Neck Exam Present: supple, full ROM, normal carotid upstroke. Absent: JVD, carotid bruit, lymphadenopathy - *Routine Respiratory Exam Present: accessory muscle use, CTA bilaterally. Absent: wheezes - *Routine Cardiovascular Exam Present: RRR, Normal S1, Normal S2. Absent: click, JVD, ectopic Comments: PPM in place - *Routine Abdominal Exam Present: soft, normoactive bowel sounds. Absent: distended, rebound, firm - *Routine Extremiti
--- NOTE | 2020-08-31 12:29 | SW/DCPLANNER ---
Updated order has been sent to [facility] due to increase of home O2 from 2L to 4L.
== END 2020-08-31 10:47 | disposition home or self-care (01) | DRG 242 ==
LOC: ER 12:34 → 2ND 13:21
PROVIDERS: Internal Medicine; Urology; Admitting Provider Family Medicine; Emergency Provider Emergency Medicine; PCP Family Medicine; Visit Provider Family Medicine
PROC: 0JH606Z Insertion of Pacemaker, Dual Chamber into Chest Subcutaneous Tissue and Fascia, Open Approach (ICD-10-PCS; principal; 2020-08-30 14:30)
DX: I49.5 Sick sinus syndrome (principal); J18.9 Pneumonia, unspecified organism; F20.0 Paranoid schizophrenia; J44.0 Chronic obstructive pulmonary disease with (acute) lower respiratory infection; J44.1 Chronic obstructive pulmonary disease with (acute) exacerbation; I48.0 Paroxysmal atrial fibrillation; Z79.01 Long term (current) use of anticoagulants; Z86.14 Personal history of Methicillin resistant Staphylococcus aureus infection; Z99.81 Dependence on supplemental oxygen; M13.80 Other specified arthritis, unspecified site; Z86.711 Personal history of pulmonary embolism; E78.5 Hyperlipidemia, unspecified; Z86.718 Personal history of other venous thrombosis and embolism; R56.9 Unspecified convulsions; K21.9 Gastro-esophageal reflux disease without esophagitis
CPT/HCPCS: 33208; 36415; 71045; 71046; 71275; 80048; 80202; 83605; 83735; 84145; 84436; 84443; 84479; 84484; 85025; 87040; 87070; 87077; 87186; 87205; 93005; 93306; 94640; 94760; 94761; 96365; 96366; 96367; 96375; 99152; 99153; 99285; 99291; C1785; C1898; J0456; J3370; Q9967; U0003

== ENCOUNTER 2020-09-01 14:21 | Emergency (ER) | payer OTHER, SELFPAY ==
--- NOTE | 2020-09-01 14:15 | ECG_ITS ---
APPROVED REPORT Exam: Resting ECG HR:77 bpm ECG Measurements Heart Rate 77 AXES NM 152 P 77 QRSd 82 QRS -13 QT 364 T 65 QTc 411 Conclusion Normal sinus rhythm Normal ECG Electronically signed by : Tray Em, 09/02/2020 13:48:29
[2020-09-01 14:22] VITALS: BP 125/80; PULSE 79; RESP 16; TEMP 36.6; O2SAT 98; BMI 23.7
--- NOTE | 2020-09-01 14:34 | XR_ITS ---
PROCEDURE INFORMATION: Exam: XR Chest Exam date and time: 09/01/2020 2:34 PM Age: 55 years old Clinical indication: Other: Palpations; Prior surgery; Surgery date: 3-7 days post-operative; Surgery type: Pacemaker TECHNIQUE: Imaging protocol: XR of the chest. Views: 1 view. COMPARISON: CR XR CHEST PORTABLE 08/30/2020 2:22 PM FINDINGS: Tubes, catheters and devices: A pacemaker device is present, and its leads are in appropriate position. Lungs: The lungs are hyperinflated, consistent with underlying small airways disease. Atelectatic and/or early infiltrative changes noted within both lung bases, greater on the left. Pleural spaces: There is no evidence of pneumothorax. Heart/Mediastinum: Unremarkable. No cardiomegaly. Bones/joints: Unremarkable. IMPRESSION: 1. A pacemaker device is present, and its leads are in appropriate position. 2. The lungs are hyperinflated, consistent with underlying small airways disease. 3. Atelectatic and/or early infiltrative changes noted within both lung bases, greater on the left.
[2020-09-01 14:46] LABS: Basophils % 0.6 % (0.1-2.0); Eosinophils # 0.2 K/mm3 (0.0-0.4); Eosinophils % 3.3 % (0.1-12.0); Hematocrit 30.8 % (42.0-52.0); Hemoglobin 10.1 g/dL (14.1-18.0); Lymphocytes # 2.4 K/mm3 (0.7-4.5); Lymphocytes % 34.5 % (10-50); Mean Corpuscular HGB Conc 32.8 g/dL (31.8-35.4); Mean Corpuscular Hemoglobin 28.1 pg (27.0-31.2); Mean Corpuscular Volume 85.8 fl (80-94); Mean Platelet Volume 7.3 fl (7.4-10.4); Monocytes # 0.5 K/mm3 (0.1-1.0); Monocytes % 7.5 % (1.7-9.3); Neutrophils # 3.8 K/mm3 (1.8-7.8); Neutrophils % 54.2 % (37.0-80.0); Platelet Count 186 K/mm3 (142-424); Red Blood Count 3.59 M/mm3 (4.60-6.20); Red Cell Distribution Width 15.2 % (11.5-17.5); White Blood Count 6.9 K/mm3 (4.8-10.8)
[2020-09-01 14:55] VITALS: BP 102/78; PULSE 78; RESP 13; O2SAT 98
[2020-09-01 14:57] LABS: Anion Gap 9.3 mEq/L (5-15); Blood Urea Nitrogen 21 mg/dl (9-20); Calcium 8.2 mg/dl (8.4-10.2); Carbon Dioxide 31 mmol/L (22.0-30.0); Chloride 105 mmol/L (98-107); Creatinine Clearance Estimated 102 mL/min (50-200); Estimated Glomerular Filt Rate 100 ml/min (>60); GFR (African American) 121 ML/MIN (>60); Glucose 114 mg/dl (74-100); Potassium 3.3 mmoL/L (3.5-5.1); Sodium 142 mmol/L (136-145)
[2020-09-01 15:00] VITALS: BP 120/78; PULSE 73; RESP 19; O2SAT 97
[2020-09-01 15:12] LABS: Troponin I 0.01 ng/ml (0.00-0.034)
--- NOTE | 2020-09-01 15:14 | HMH.EDGENADL ---
ED Disposition Clinical Impression: Rapid atrial fibrillation Disposition: Home, Self-Care Condition on Discharge: Good Instructions: DI for Atrial Fibrillation Additional Instructions: Increase your daily dose of bisoprolol to 10 mg daily (take two 5 mg pills) beginning tomorrow. Start Cardizem ER 240 mg daily beginning tomorrow. See Dr. Martinez in the office on Thursday as scheduled. Return to the emergency department if symptoms return or worsen. Prescriptions: dilTIAZem HCL [Cardizem ER 240mg Capsule] 240 mg PO DAILY #30 cap.er.24h Transmission Status: Pending to [facility] Referrals: Tray Lizarraga MD [Primary Care Provider] - - Critical Care Critical Care Time: No Attestation: On 09/01/20, the high probability of a clinically significant, sudden or life threatening deterioration of the following system(s) required my full and direct attention, intervention and personal management. The time I documented below is in addition to time spent performing reported procedures but includes the following listed in this critical care notation. Medical Decision Making - Medical Records Medical records reviewed: Yes: I reviewed the patient's medical records. MR Comment: Reviewed discharge summary from admission 08/28/2020. Reviewed echocardiogram report. EF normal. - Julius Inquiry Pt receiving controlled substance: No Vital Signs: 09/01/20 14:22 09/01/20 14:55 09/01/20 15:00 Temperature 97.9 F Temperature Source Oral Pulse Rate 78 73 Pulse Rate [Right] 79 Respiratory Rate 16 13 19 Blood Pressure 102/78 L 120/78 Blood Pressure [Right Arm] 125/80 Blood Pressure Mean [Right Arm] 95 02 Sat by Pulse Oximetry 98 98 97 Oxygen Delivery Method Room Air - Lab Data Lab Results 09/01/20 14:27: WBC 6.9, RBC 3.59 L, Hgb 10.1 L, Hct 30.8 L, MCV 85.8, MCH 28.1, MCHC 32.8, RDW 15.2, Plt Count 186, MPV 7.3 L, Neut % (Auto) 54.2, Lymph % (Auto) 34.5, [place] % (Auto) 7.5, Eos % (Auto) 3.3, Baso % (Auto) 0.6, Neut # (Auto) 3.8, Lymph # (Auto) 2.4, [place] # (Auto) 0.5, Eos # (Auto) 0.2, Baso # (Auto) 0.0 09/01/20 14:27: Sodium 142, Potassium 3.3 L D, Chloride 105, Carbon Dioxide 31 H D, Anion Gap 9.3, BUN 21 H D, Creatinine 0.80 D, Estimated Creat Clear 102, Estimated GFR 100, Est GFR ( Amer) 121 D, Glucose 114 H, Calcium 8.2 L, Troponin I 0.01 Result diagrams: 09/01/20 14:27 09/01/20 14:27 Orders (Tests/Meds): ED MEDICATIONS Discontinued Medications Generic Name Dose Route Start Last Admin Trade Name Freq PRN Reason Stop Dose Admin Bisoprolol Fumarate 5 mg 09/01/20 15:34 09/01/20 15:59 Bisoprolol 5mg Tablet PO 09/01/20 15:35 5 mg ONCE ONE Administration Diltiazem HCl 240 mg 09/01/20 16:00 09/01/20 15:53 Diltiazem Er 120mg Capsule PO 09/01/20 16:01 240 mg ONCE ONE Administration ORDERS Category Date Time Status Chest XR -- portable [XR chest portable] Stat Exams 09/01/20 14:34 Taken Troponin I Q3H Lab 09/01/20 17:45 Ordered Troponin I Q3H Lab 09/01/20 20:45 Ordered - ECG Data Tracing #1 EKG interpreted by Bharath Willett MD: Rhythm: sinus Rate: 77 [place]: normal Ectopy: none Conduction: normal ST Segment Changes: none T Wave Changes: none Q Waves: none No evidence of acute ischemia or injury Normal electrocardiogram - Physician Consults Physician Consulted: Juan Time: 15:30 Reason -: Cardiology Eval/Care Comment/Response: 5 mg bisoprolol and Cardizem extended release 240 mg now. Increase daily dose to bisoprolol 10 mg daily and continue Cardizem ER 240 mg daily. General Adult HPI - General Chief complaint: Arrhythmia/Palpitations Stated complaint: Elevated heart rate Time Seen by Provider: 09/01/20 15:14 Mode of Arrival: Family Vehicle Limitations: No Limitations Description of Symptoms (Recalled from ER Triage Doc. by RN): Patient reports he called out for an elevated heart rate that he noticed on his smart watch.
--- NOTE | 2020-09-01 15:29 | PC.NURSE ---
calling dr barrett
[2020-09-01 16:00] VITALS: BP 117/74; BP 122/65; PULSE 69; PULSE 76; RESP 14; RESP 16; TEMP 36.7; O2SAT 97
== END 2020-09-01 16:53 | disposition home or self-care (01) ==
PROVIDERS: Emergency Provider Emergency Medicine; PCP Family Medicine
DX: I48.0 Paroxysmal atrial fibrillation (principal); Z95.0 Presence of cardiac pacemaker; J44.9 Chronic obstructive pulmonary disease, unspecified; K21.9 Gastro-esophageal reflux disease without esophagitis; I10 Essential (primary) hypertension; E78.5 Hyperlipidemia, unspecified; Z87.891 Personal history of nicotine dependence; Z88.5 Allergy status to narcotic agent; Z79.899 Other long term (current) drug therapy
CPT/HCPCS: 71045; 80048; 84484; 85025; 93005; 99282; 99283

== ENCOUNTER → 2020-09-05 11:34 | Outpatient (CLI) | payer OTHER, SELFPAY | PROVIDERS: Visit Provider Family Medicine | DX: Z51.81 Encounter for therapeutic drug level monitoring (principal); Z79.01 Long term (current) use of anticoagulants | CPT/HCPCS: 36415; 86900; 86901 ==

== ENCOUNTER 2020-10-04 19:16 | Observation (INO) | payer OTHER, SELFPAY ==
[2020-10-04] VITALS (14 sets, daily range): BP systolic 110–139; BP diastolic 53–83; PULSE 61–109; RESP 16–22; TEMP 36.9–37.7; O2SAT 86–100; BMI 28.1
--- NOTE | 2020-10-04 19:13 | ECG_ITS ---
APPROVED REPORT Exam: Resting ECG HR:76 bpm ECG Measurements Heart Rate 76 AXES ME 156 P 69 QRSd 80 QRS -22 QT 362 T 69 QTc 407 Conclusion Normal sinus rhythm Normal ECG Electronically signed by : Tray Em MD 10/05/2020 16:56:24
--- NOTE | 2020-10-04 19:31 | XR_ITS ---
PROCEDURE INFORMATION: Exam: XR Chest Exam date and time: 10/04/2020 7:31 PM Age: 55 years old Clinical indication: Shortness of breath; Additional info: Shortness of air TECHNIQUE: Imaging protocol: XR of the chest. Views: 1 view. COMPARISON: CR XR CHEST PORTABLE 09/01/2020 2:51 PM FINDINGS: Tubes, catheters and devices: Dual lead left-sided cardiac pacemaker. Lungs: Moderate interstitial opacities in both lungs right greater than left concerning for severe pneumonia. Underlying emphysema. Pleural spaces: Unremarkable. No pleural effusion. No pneumothorax. Heart/Mediastinum: Unremarkable. No cardiomegaly. Bones/joints: Unremarkable. IMPRESSION: Bilateral interstitial pneumonia right greater than left.
[2020-10-04 19:47] LABS: Coronavirus 19, PCR Not Detected (NotDetected); Influenza A, PCR Not Detected (NotDetected); Influenza B, PCR Not Detected (NotDetected)
[2020-10-04 19:49] LABS: Basophils % 0.5 % (0.1-2.0); Eosinophils # 0.1 K/mm3 (0.0-0.4); Eosinophils % 2.4 % (0.1-12.0); Hematocrit 36.4 % (42.0-52.0); Hemoglobin 11.6 g/dL (14.1-18.0); Lymphocytes % 23.7 % (10-50); Mean Corpuscular Hemoglobin 27.4 pg (27.0-31.2); Mean Corpuscular Volume 85.7 fl (80-94); Mean Platelet Volume 7.2 fl (7.4-10.4); Monocytes # 0.4 K/mm3 (0.1-1.0); Monocytes % 8.5 % (1.7-9.3); Neutrophils # 2.7 K/mm3 (1.8-7.8); Neutrophils % 64.9 % (37.0-80.0); Platelet Count 174 K/mm3 (142-424); Red Blood Count 4.24 M/mm3 (4.60-6.20); Red Cell Distribution Width 15.1 % (11.5-17.5); White Blood Count 4.2 K/mm3 (4.8-10.8)
[2020-10-04 19:50] LABS: Chloride 100 mmol/L (98-107); Sodium 139 mmol/L (136-145)
[2020-10-04 19:51] LABS: Potassium 4.2 mmoL/L (3.5-5.1)
[2020-10-04 19:53] LABS: Alanine Aminotransferase 14 U/L (12-78); Albumin Level 4.4 g/dl (3.5-5.0); Albumin/Globulin Ratio 1.1 (1.1-1.8); Alkaline Phosphatase 111 U/L (38-126); Anion Gap 14.2 mEq/L (5-15); Aspartate Amino Transferase 27 U/L (17-59); Bilirubin,Total 0.3 mg/dl (0.2-1.3); Blood Urea Nitrogen 21 mg/dl (9-20); Carbon Dioxide 29 mmol/L (22.0-30.0); Creatinine Clearance Estimated 88 mL/min (50-200); Estimated Glomerular Filt Rate 69 ml/min (>60); GFR (African American) 83 ML/MIN (>60); Globulin 4.1 g/dL (1.3-3.2); Total Protein,Serum 8.5 g/dl (6.3-8.2)
[2020-10-04 19:54] LABS: Calcium 8.6 mg/dl (8.4-10.2); Glucose 91 mg/dl (74-100)
[2020-10-04 20:02] LABS: ABG Base Excess -0.4 mmol/L (-2.4-2.3); ABG HCO3 24.8 mmhg (22.0-26.0); ABG Oxygen Saturation 90 % (90-100); ABG PCO2 43.1 mmhg (35.0-45.0); ABG PH 7.38 mmol/L (7.35-7.45); ABG PO2 58.3 mmhg (80-100); ABG TCO2 26.1 mmhg (23-27)
[2020-10-04 20:04] LABS: NT Pro Brain Natriuretic Pep. 75.2 pg/mL (0-125)
[2020-10-04 20:04] LABS: Allen's Test Acceptable; Oxygen 2 LPM %; Source Right Radial
[2020-10-04 20:05] LABS: Lactic Acid 1.1 mmol/L (0.7-2.1)
[2020-10-04 20:08] LABS: Troponin I < 0.01 ng/ml (0.00-0.034)
[2020-10-04 20:11] LABS: T4 (Thyroxine) 6.7 ug/dl (5.53-11.0)
[2020-10-04 20:25] LABS: Thyroid Stimulating Hormone 1.32 uIU/mL (0.465-4.68)
--- NOTE | 2020-10-04 20:50 | HMH.EDSOB ---
ED Disposition Clinical Impression: Presence of cardiac pacemaker, Abnormal drug screen, Acute exacerbation of chronic obstructive airways disease CAP (community acquired pneumonia) Qualifiers: Laterality: right Lung location: lower lobe of lung Qualified Code(s): J18.9 - Pneumonia, unspecified organism Disposition: Admitted as Observation Condition on Discharge: Fair - Critical Care Critical Care Time: No Attestation: On 10/04/20, the high probability of a clinically significant, sudden or life threatening deterioration of the following system(s) required my full and direct attention, intervention and personal management. The time I documented below is in addition to time spent performing reported procedures but includes the following listed in this critical care notation. Medical Decision Making - Medical Records Medical records reviewed: Yes: I reviewed the patient's medical records. - Julius Inquiry Pt receiving controlled substance: No Vital Signs: 10/04/20 19:14 10/04/20 20:05 10/04/20 21:10 Temperature 98.5 F 99.8 F H Temperature Source Oral Rectal Pulse Rate 76 Pulse Rate [Right Brachial] 77 Respiratory Rate 18 Blood Pressure [Right Arm] 129/70 Blood Pressure Mean [Right Arm] 89 Blood Pressure Source [Right Arm] Automatic Cuff Blood Pressure Position [Right Arm] Sitting 02 Sat by Pulse Oximetry 93 L Oxygen Delivery Method Room Air - Lab Data Lab results reviewed: Yes: I reviewed the patient's lab results. Lab Results 10/04/20 19:15: WBC 4.2 L, RBC 4.24 L, Hgb 11.6 L, Hct 36.4 L, MCV 85.7, MCH 27.4, MCHC 32.0, RDW 15.1, Plt Count 174, MPV 7.2 L, Neut % (Auto) 64.9, Lymph % (Auto) 23.7, [place] % (Auto) 8.5, Eos % (Auto) 2.4, Baso % (Auto) 0.5, Neut # (Auto) 2.7, Lymph # (Auto) 1.0, [place] # (Auto) 0.4, Eos # (Auto) 0.1, Baso # (Auto) 0.0 10/04/20 19:15: Sodium 139, Potassium 4.2, Chloride 100, Carbon Dioxide 29, Anion Gap 14.2, BUN 21 H, Creatinine 1.10, Estimated Creat Clear 88, Estimated GFR 69, Est GFR ( Amer) 83, Glucose 91, Calcium 8.6, Total Bilirubin 0.3, AST 27, ALT 14, Alkaline Phosphatase 111, Troponin I < 0.01, NT-Pro-B Natriuret Pep 75.2, Total Protein 8.5 H, Albumin 4.4, Globulin 4.1 H, Albumin/Globulin Ratio 1.1, TSH 1.32, Thyroxine (T4) 6.7 10/04/20 19:15: Lactate 1.1 10/04/20 19:15: SARS-CoV-2 (PCR) Not detected, Influenza A Untype (PCR) Not detected, Influenza Type B (PCR) Not detected 10/04/20 19:45: Specimen Source Right radial, O2 % 2 lpm, ABG pH 7.38, ABG pCO2 43.1, ABG pO2 58.3 L, ABG HCO3 24.8, ABG Total CO2 26.1, ABG O2 Saturation 90, ABG Base Excess -0.4, Dominguez Test Acceptable 10/04/20 22:00: Urine Opiates Screen Positive H, Urine Methadone Screen Negative, Ur Barbituates Screen Negative, Ur Phencyclidine Scrn Negative, Ur Amphetamines Screen TNP, U Benzodiazepines Scrn Negative, Urine Cocaine Screen Negative, U Marijuana (THC) Screen Negative 10/04/20 22:00: Urine Color Yellow, Urine Appearance Clear, Urine pH 5.5, Ur Specific [place] >= 1.030, Urine Protein Negative, Urine Glucose (UA) Negative, Urine Ketones Negative, Urine Blood Negative, Urine Nitrate Negative, Urine Bilirubin Negative, Urine Urobilinogen 0.2, Ur Leukocyte Esterase Negative, Urine RBC None, Urine WBC Occasional, Ur Squamous Epith Cells None, Urine Bacteria None Result diagrams: 10/04/20 19:15 10/04/20 19:15 Orders (Tests/Meds): ED MEDICATIONS Generic Name Dose Route Start Last Admin Trade Name Freq PRN Reason Stop Dose Admin Albuterol/Ipratropium 3 ml 10/04/20 21:00 10/04/20 21:00 Ipratropium/Albuterol 3 Ml Neb IH 11/03/20 20:59 3 ml QIDRT ARNOLD Administration Vancomycin HCl 1,250 mg/ 250 mls @ 125 mls/hr 10/04/20 21:30 10/04/20 23:12 Sodium Chloride IV 10/18/20 21:29 Not Given Q12H ARNOLD Ceftriaxone Sodium 1 gm/ 50 mls @ 100 mls/hr 10/04/20 21:45 10/04/20 23:40 Sodium Chloride IV 10/18/20 21:44 100 mls/hr Q24H ARNOLD Administration Sodium Chloride 3 m
--- NOTE | 2020-10-04 21:51 | XR_ITS ---
PROCEDURE INFORMATION: Exam: XR Pelvis Exam date and time: 10/04/2020 9:51 PM Age: 55 years old Clinical indication: Injury or trauma; Fall; Blunt trauma (contusions or hematomas); Bilateral; Pelvic region TECHNIQUE: Imaging protocol: XR pelvis. Views: 1 or 2 view. COMPARISON: CT ABDOMEN PELVIS W CON 04/05/2019 3:08 AM FINDINGS: Bones/joints: Unremarkable. No acute fracture. Soft tissues: Unremarkable. IMPRESSION: No acute findings.
--- NOTE | 2020-10-04 21:51 | XR_ITS ---
PROCEDURE INFORMATION: Exam: XR Chest Exam date and time: 10/04/2020 9:51 PM Age: 55 years old Clinical indication: Injury or trauma; Fall; Blunt trauma (contusions or hematomas); Prior surgery; Surgery type: Pacemaker TECHNIQUE: Imaging protocol: XR of the chest. Views: 1 view. COMPARISON: CR XR CHEST PORTABLE 10/04/2020 7:48 PM FINDINGS: Tubes, catheters and devices: Dual lead left-sided cardiac pacemaker. Lungs: Extensive interstitial opacities in both lungs findings concerning for pneumonia. These findings are worse on the right. Pleural spaces: Unremarkable. No pleural effusion. No pneumothorax. Heart/Mediastinum: Unremarkable. No cardiomegaly. Bones/joints: Unremarkable. IMPRESSION: Bilateral infiltrates right greater than left.
--- NOTE | 2020-10-04 21:52 | CT_ITS ---
PROCEDURE INFORMATION: Exam: CT Head Without Contrast Exam date and time: 10/04/2020 9:52 PM Age: 55 years old Clinical indication: Injury or trauma; Fall; Blunt trauma (contusions or hematomas); Without loss of consciousness; Additional info: Fall to floor, low impact TECHNIQUE: Imaging protocol: Computed tomography of the head without contrast. Radiation optimization: All CT scans at this facility use at least one of these dose optimization techniques: automated exposure control; mA and/or kV adjustment per patient size (includes targeted exams where dose is matched to clinical indication); or iterative reconstruction. COMPARISON: SINUS CT SINUS (MAX-FACIAL W/O CONT) 11/26/2015 2:59 PM FINDINGS: Brain: Normal. No hemorrhage. Unremarkable white matter. No mass effect. Cerebral ventricles: No ventriculomegaly. Paranasal sinuses: Visualized sinuses are unremarkable. No fluid levels. Mastoid air cells: Visualized mastoid air cells are well aerated. Bones/joints: Unremarkable. No acute fracture. Soft tissues: Unremarkable. IMPRESSION: No acute intracranial abnormality.
--- NOTE | 2020-10-04 21:52 | CT_ITS ---
PROCEDURE INFORMATION: Exam: CT Cervical Spine Without Contrast Exam date and time: 10/04/2020 9:52 PM Age: 55 years old Clinical indication: Injury or trauma; Fall; Blunt trauma; Additional info: Fall to floor, low impact TECHNIQUE: Imaging protocol: Computed tomography images of the cervical spine without contrast. Radiation optimization: All CT scans at this facility use at least one of these dose optimization techniques: automated exposure control; mA and/or kV adjustment per patient size (includes targeted exams where dose is matched to clinical indication); or iterative reconstruction. COMPARISON: CT ANGIO CHEST PE PROTOCOL 08/28/2020 11:21 AM FINDINGS: Bones/joints: No acute fracture. Normal alignment. Discs/Spinal canal/Neural foramina: Degenerative changes at the C5-C6 and C6-C7 level with disc osteophyte complexes resulting in neural foraminal and central canal narrowing. No additional significant disc protrusion. No severe spinal canal stenosis. No significant neural foraminal narrowing. Lungs: Lung apices reveal severe emphysematous changes. Soft tissues: Unremarkable. IMPRESSION: No acute findings.
--- NOTE | 2020-10-04 21:53 | PC.NURSE ---
called to room to assess patient. staff witnessed patient scoot to end of bed (side rails were up) and collapse onto his knees onto floor and then lay on his shoulder onto the floor. pt ripped his IV out as he was going. remained alert & oriented at the time of fall, was determined he stated to get to the BR, incontinent of bowel on himself and floor. Initial assessment reveals no injury. alum plant supervisor and MD aware and at bedside. logrolled to inspect back. cspine held. placed onto backboard and back in bed. new orders for xrays placed due to mechanism. notified rad. staff remains s1-on-1 with patient for safety.
[2020-10-04 22:45] LABS: Microscopic, Urine URINE MICROSCOPIC (MICROSCOPIC)
[2020-10-04 22:52] LABS: Appearance,Urine CLEAR (Clear); Bilirubin,Urine Negative (Negative); Blood, Urine Negative (Negative); Color,Urine YELLOW (Yellow); Glucose,Urine (UA) Negative (Negative); Ketones,Urine Negative (Negative); Leukocyte Esterase,Urine Negative (Negative); Nitrate,Urine Negative (Negative); PH,Urine 5.5 (5.0-8.5); Protein,Urine Negative (Negative); Specific Gravity, Urine >= 1.030 (1.005-1.030); Urobilinogen,Urine 0.2 EU/dl (0.2)
[2020-10-04 23:04] LABS: Barbiturates Screen,Urine Negative ng/ml (<200)
[2020-10-04 23:05] LABS: Benzodiazepines Screen,Urine Negative ng/ml (<200)
[2020-10-04 23:06] LABS: Cannabinoid Screen,Urine Negative ng/ml (<50)
[2020-10-04 23:07] LABS: Cocaine Screen,Urine Negative ng/ml (<300); Methadone Screen,Urine Negative ng/ml (<300)
[2020-10-04 23:08] LABS: Opiate Screen,Urine Positive ng/ml (<300); WBC,Urine Occasional #/hpf (0-3)
[2020-10-04 23:09] LABS: Phencyclidine Screen,Urine Negative ng/ml (<25)
[2020-10-04 23:29] LABS: Troponin I < 0.01 ng/ml (0.00-0.034)
[2020-10-05] VITALS (12 sets, daily range): BP systolic 92–127; BP diastolic 54–78; PULSE 69–90; RESP 15–20; TEMP 36.6–38.1; O2SAT 90–99
--- NOTE | 2020-10-05 00:56 | PC.NURSE ---
patient up to floor via stretcher.
[2020-10-05 02:40] LABS: Troponin I < 0.01 ng/ml (0.00-0.034)
--- NOTE | 2020-10-05 03:06 | PC.NURSE ---
Q30 check 3 a.m.
--- NOTE | 2020-10-05 04:50 | PC.NURSE ---
Q30 check 4 a.m.
--- NOTE | 2020-10-05 04:51 | PC.NURSE ---
Q30 check 4:30 a.m.
--- NOTE | 2020-10-05 05:39 | PC.NURSE ---
Patient has been asleep since being brought to the floor. VS stable; Call light in reach, seizure pads in place due to prior history, bed at lowest level for safety; will continue to monitor.
--- NOTE | 2020-10-05 05:58 | PC.NURSE ---
Q30 check 5 a.m.
--- NOTE | 2020-10-05 05:58 | PC.NURSE ---
Q30 check 5:30 a.m.
--- NOTE | 2020-10-05 06:00 | INFXCTL.NOTE ---
Q30 check 6 a.m.
--- NOTE | 2020-10-05 06:50 | PC.NURSE ---
[id number] 6:30 a.m.
--- NOTE | 2020-10-05 07:07 | HMH.HP ---
*Admission Date: 10/04/20 *Chief complaint: Weakness *History of present illness: 55-year-old male with history of COPD as well as Pseudomonas pneumonia at last hospitalization presented to the ER with 4 days of progressive weakness and shortness of breath. Patient denies cough above baseline. Patient reports he was so weak he was unable to ambulate at home. He has a friend who checks on him on him frequently and the friend became concerned yesterday evening when patient did not seem to be himself and contacted EMS. There was concern that the patient was having an abnormal cardiac rhythm. EMS arrived. Patient was weak. Patient was brought to the emergency department. It was there the patient also admitted he could not move his arms. Work-up ultimately revealed bilateral pneumonia. Patient does not believe he is had fevers at home. [facility] History I have reviewed the patient's past medical history: Yes (Who had a) Medical History: Reports:: Anxiety, Atrial Fibrillation, Chronic Obstructive Pulmonary Disease (COPD), Gastroesophageal Reflux Disease(GERD), Hyperlipidemia, Hypertension, Internal Pacemaker, MRSA, Pulmonary Embolism, Seizures Denies:: Cancer, Diabetes Mellitus Type 1, Diabetes Mellitus Type 2 *Have you ever received a pneumonia vaccine?: No *Have you received a flu vaccine this season?: No Other Medical History: Reports: Arthritis Other Surgeries: Yes: Cholecystectomy, Colonoscopy, Pacemaker, Other (Lumbar sx X3) Amputation: No Fractures: No - *Social History Smoking Status: Former smoker Tobacco Type: cigarettes # Packs/Day (cigarettes): 1 #Yrs smoked (if former smoker): 30 Alcohol Intake: former Substance Use Type: denies use *Occupational Status:: other Housing: house Household Members: none *Travel in the last 8 weeks: None Family Hx:: Unable to obtain Review of Systems - Constitutional Reports lack of energy, Reports malaise, Denies anorexia, Denies body ache(s), Denies chills, Denies excessive sweating, Denies weakness (With stent what is the word) - Eyes Denies change in vision, Denies loss of vision - ENT Denies bleeding gums, Denies change in voice, Denies dental pain, Denies nasal congestion - *Cardiovascular Reports shortness of breath, Reports shortness of breath with activity, Denies chest pain, Denies chest pain at rest, Denies leg pain with activity - *Respiratory Reports shortness of breath, Denies chest congestion, Denies cough, Denies shortness of breath with activity - *Gastrointestinal Denies belching, Denies bloating, Denies change in bowel habits - *Genitourinary Denies difficulty urinating, Denies difficulty with ejaculations - *Musculoskeletal Reports limited joint movement, Reports muscle weakness - Integumentary/Breasts Denies hair loss, Denies bleeding lesions - *Neurologic Denies abnormal hearing, Denies abnormal movements Meds Home Medications Medication Instructions Recorded Confirmed Type Oxymorphone HCl [Oxymorphone HCl 40 mg PO BIDP PRN 03/31/19 09/26/20 History ER] Aspirin [Aspir-Low] 81 mg PO DAILY 04/04/19 09/26/20 History Fluticasone Propionate [Flonase 2 sprays NS DAILY 04/04/19 09/26/20 History 50mcg nasal spray 16gm] Furosemide [Lasix 20mg tablet] 20 mg PO BID 04/04/19 09/26/20 History Meloxicam 15 mg PO DAILY 04/04/19 09/26/20 History Naloxone HCl [Narcan] 4 mg NS Q2M PRN 04/04/19 09/26/20 History Nitroglycerin [Nitrostat 0.4mg SL 0.4 mg SL Q5M PRN 04/04/19 09/26/20 History Tablet] Omeprazole [Omeprazole 40mg 40 mg PO DAILY 04/04/19 09/26/20 History Capsule] Potassium Chloride [Klor-con 20 20 meq PO DAILY 04/04/19 09/26/20 History mEq tablet] Pravastatin Sodium [Pravachol] 20 mg PO HS 04/04/19 09/26/20 History Promethazine HCl [Phenergan 25mg 25 mg PO Q6HP PRN 04/04/19 09/26/20 History tab] carBAMazepine [Tegretol] 400 mg PO BID 04/04/19 09/26/20 History risperiDONE [Risperidone] 3 mg PO BID 04/04/19 09/26/20 History
--- NOTE | 2020-10-05 07:34 | P.CONPHA_ITS ---
[facility] Pharmacy VTE Monitoring - Patient Demographics Admission date: 10/04/20 Report Date: 10/05/20 Time: 07:34 Allergies/Adverse Reactions: Patient Allergies codeine [CODEINE] Allergy (Mild, Verified 09/26/20 14:54) levofloxacin [From LEVAQUIN] Allergy (Mild, Verified 09/26/20 14:54) methadone [METHADONE] Allergy (Mild, Verified 09/26/20 14:54) fentanyl [From Duragesic] Allergy (Verified 09/26/20 14:54) morphine Allergy (Verified 09/26/20 14:54) diltiazem [From Cardizem] Adverse Reaction (Severe, Verified 09/26/20 14:54) asystole during iv infusion Height: 1.73 m Weight: 83.915 kg Patient Problems: Current Active Problems Abnormal drug screen (Acute) Acute exacerbation of chronic obstructive airways disease (Acute) Bilateral pneumonia (Acute) History of Pseudomonas pneumonia (Acute) COPD (chronic obstructive pulmonary disease) (Acute) Foraminal stenosis of cervical region (Acute) Cervical spinal stenosis (Acute) 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) Presence of cardiac pacemaker (Chronic) Community acquired pneumonia (Acute) Tachy-kevin syndrome (Acute) - VTE Risk Labs: VTE Related Lab Results Hgb 11.6 g/dL (14.1-18.0) L 10/04/20 19:15 Hct 36.4 % (42.0-52.0) L 10/04/20 19:15 Plt Count 174 K/mm3 (142-424) 10/04/20 19:15 BUN 21 mg/dl (9-20) H 10/04/20 19:15 Creatinine 1.10 mg/dl (0.66-1.25) 10/04/20 19:15 Estimated Creat Clear 88 mL/min (50-200) 10/04/20 19:15 VTE Score: 3 VTE Risk Level: Low Risk - Prophylaxis VTE Prophylaxis Ordered?: Yes Types of VTE Prophylaxis: TEDS Knee High, Pharmacological Location of Applied Device: Bilateral Lower Extremeties Pharmacologic Type: Other (XARELTO)
[2020-10-05 07:50] LABS: Basophils % 0.2 % (0.1-2.0); Eosinophils % 0.3 % (0.1-12.0); Hematocrit 33.4 % (42.0-52.0); Hemoglobin 11.2 g/dL (14.1-18.0); Lymphocytes # 0.6 K/mm3 (0.7-4.5); Lymphocytes % 7.6 % (10-50); Mean Corpuscular HGB Conc 33.6 g/dL (31.8-35.4); Mean Corpuscular Hemoglobin 28.5 pg (27.0-31.2); Mean Corpuscular Volume 84.7 fl (80-94); Mean Platelet Volume 7.8 fl (7.4-10.4); Monocytes # 0.4 K/mm3 (0.1-1.0); Monocytes % 4.6 % (1.7-9.3); Neutrophils # 6.8 K/mm3 (1.8-7.8); Neutrophils % 87.3 % (37.0-80.0); Platelet Count 170 K/mm3 (142-424); Red Blood Count 3.94 M/mm3 (4.60-6.20); Red Cell Distribution Width 15.1 % (11.5-17.5); White Blood Count 7.8 K/mm3 (4.8-10.8)
[2020-10-05 07:52] LABS: MANUAL DIFFERENTIAL MANUAL DIFFERENTIAL (MANUAL DIFF)
--- NOTE | 2020-10-05 07:52 | HMH.PHACONS ---
- Pharmacy Consult Date: 10/05/20 Time: 07:52 Referring provider: DR. TENA Reason for Consult:: VANCOMYCIN DOSING Allergies and ADEs:: Allergies Allergy/AdvReac Type Severity Reaction Status Date / Time codeine [CODEINE] Allergy Mild Verified 09/26/20 14:54 levofloxacin [From LEVAQUIN] Allergy Mild Verified 09/26/20 14:54 methadone [METHADONE] Allergy Mild Verified 09/26/20 14:54 fentanyl [From Duragesic] Allergy Verified 09/26/20 14:54 morphine Allergy Verified 09/26/20 14:54 diltiazem [From Cardizem] AdvReac Severe asystole Verified 09/26/20 14:54 during iv infusion Home Medications:: Home Medications Medication Instructions Recorded Confirmed Type Oxymorphone HCl [Oxymorphone HCl 40 mg PO BIDP PRN 03/31/19 09/26/20 History ER] Aspirin [Aspir-Low] 81 mg PO DAILY 04/04/19 09/26/20 History Fluticasone Propionate [Flonase 2 sprays NS DAILY 04/04/19 09/26/20 History 50mcg nasal spray 16gm] Furosemide [Lasix 20mg tablet] 20 mg PO BID 04/04/19 09/26/20 History Meloxicam 15 mg PO DAILY 04/04/19 09/26/20 History Naloxone HCl [Narcan] 4 mg NS Q2M PRN 04/04/19 09/26/20 History Nitroglycerin [Nitrostat 0.4mg SL 0.4 mg SL Q5M PRN 04/04/19 09/26/20 History Tablet] Omeprazole [Omeprazole 40mg 40 mg PO DAILY 04/04/19 09/26/20 History Capsule] Potassium Chloride [Klor-con 20 20 meq PO DAILY 04/04/19 09/26/20 History mEq tablet] Pravastatin Sodium [Pravachol] 20 mg PO HS 04/04/19 09/26/20 History Promethazine HCl [Phenergan 25mg 25 mg PO Q6HP PRN 04/04/19 09/26/20 History tab] carBAMazepine [Tegretol] 400 mg PO BID 04/04/19 09/26/20 History risperiDONE [Risperidone] 3 mg PO BID 04/04/19 09/26/20 History Albuterol Sulfate [Proair Hfa] 2 puffs IH Q4HP PRN 08/28/20 09/26/20 History Famotidine 40 mg PO HS 08/28/20 09/26/20 History Fluticasone/Salmeterol [Advair 1 inh IH BID 08/28/20 09/26/20 History 250/50mcg Diskus] Rivaroxaban [Xarelto 20mg Tablet*] 20 mg PO DAILY 08/28/20 09/26/20 History prednisone 20 mg tablet 20 mg PO DIRECTED PRN tab 09/03/20 09/26/20 History bisoprolol fumarate 10 mg tablet 10 mg PO BID #60 tab 09/07/20 09/26/20 Rx Height: 1.73 m Weight: 83.915 kg Laboratory Results:: Laboratory Results - last 24 hr 10/04/20 19:15: WBC 4.2 L, RBC 4.24 L, Hgb 11.6 L, Hct 36.4 L, MCV 85.7, MCH 27.4, MCHC 32.0, RDW 15.1, Plt Count 174, MPV 7.2 L, Neut % (Auto) 64.9, Lymph % (Auto) 23.7, Kane % (Auto) 8.5, Eos % (Auto) 2.4, Baso % (Auto) 0.5, Neut # (Auto) 2.7, Lymph # (Auto) 1.0, Kane # (Auto) 0.4, Eos # (Auto) 0.1, Baso # (Auto) 0.0 10/04/20 19:15: Sodium 139, Potassium 4.2, Chloride 100, Carbon Dioxide 29, Anion Gap 14.2, BUN 21 H, Creatinine 1.10, Estimated Creat Clear 88, Estimated GFR 69, Est GFR ( Amer) 83, Glucose 91, Calcium 8.6, Total Bilirubin 0.3, AST 27, ALT 14, Alkaline Phosphatase 111, Troponin I < 0.01, NT-Pro-B Natriuret Pep 75.2, Total Protein 8.5 H, Albumin 4.4, Globulin 4.1 H, Albumin/Globulin Ratio 1.1, TSH 1.32, Thyroxine (T4) 6.7 10/04/20 19:15: Lactate 1.1 10/04/20 19:15: SARS-CoV-2 (PCR) Not detected, Influenza A Untype (PCR) Not detected, Influenza Type B (PCR) Not detected 10/04/20 19:45: Specimen Source Right radial, O2 % 2 lpm, ABG pH 7.38, ABG pCO2 43.1, ABG pO2 58.3 L, ABG HCO3 24.8, ABG Total CO2 26.1, ABG O2 Saturation 90, ABG Base Excess -0.4, Dominguez Test Acceptable 10/04/20 22:00: Urine Opiates Screen Positive H, Urine Methadone Screen Negative, Ur Barbituates Screen Negative, Ur Phencyclidine Scrn Negative, Ur Amphetamines Screen TNP, U Benzodiazepines Scrn Negative, Urine Cocaine Screen Negative, U Marijuana (THC) Screen Negative 10/04/20 22:00: Urine Color Yellow, Urine Appearance Clear, Urine pH 5.5, Ur Specific [place] >= 1.030, Urine Protein Negative, Urine Glucose (UA) Negative, Urine Ketones Negative, Urine Blood Negative, Urine Nitrate Negative, Urine Bilirubin Negative, Urine Urobilinogen 0.2, Ur Leukocyte Esterase Negative, Urine
[2020-10-05 08:15] LABS: Blood Urea Nitrogen 19 mg/dl (9-20); Calcium 8.5 mg/dl (8.4-10.2); Creatinine Clearance Estimated 107 mL/min (50-200); Estimated Glomerular Filt Rate 87 ml/min (>60); GFR (African American) 105 ML/MIN (>60); Glucose 142 mg/dl (74-100)
[2020-10-05 10:55] LABS: Eosinophils % 1 % (0-3); Lymphocytes % 9 % (10-50); Monocytes % 6 % (2-9); Myelocytes % 2 (0-1); Neutrophils % 57 % (42-76); Total Cells Counted 100
[2020-10-05 10:56] LABS: Burr Cells 1+; Platelet Estimate Normal; Stomatocytes 1+
--- NOTE | 2020-10-05 11:50 | HMH.PHAINT ---
home medication list verified using list from Dr graves' office and outpatient pharmacy
--- NOTE | 2020-10-05 14:38 | SW/DCPLANNER ---
PATIENT PRESENTED INTO THE HOSPITAL FROM HOME WITH A HISTORY OF COPD AND PSEUDOMONAS PNEUMONIA... PATIENT HAD A FRIEND THAT WAS CHECKING ON HIM AND FELT HE NEEDED TO COME TO THE HOSPITAL. ONCE IN THE HOSPITAL TESTS REVEALED HE DID HAVE A PNEUMONIA.. ONCE PATIENT IS MEDICALLY CLEARED HE WILL DISCHARGE BACK HOME PENDING NO SETBACKS THAT REQUIRE HIM TO HAVE SOME HOME CARE.. DISPOSITION UNCERTAIN, CM WILL FOLLOW AND ASSIST INDICATED..
[2020-10-05 17:27] LABS: Anion Gap 14.5 mEq/L (5-15); Carbon Dioxide 26 mmol/L (22.0-30.0); Chloride 101 mmol/L (98-107); Potassium 4.5 mmoL/L (3.5-5.1); Sodium 137 mmol/L (136-145)
--- NOTE | 2020-10-05 22:53 | INFXCTL.NOTE ---
RN looked at order for normal saline and bumped up fluids to 125ml/hr per order. did not scan because new bag was not needed yet.
[2020-10-06] VITALS (14 sets, daily range): BP systolic 112–134; BP diastolic 56–68; PULSE 60–83; RESP 16–22; TEMP 36.5–36.9; O2SAT 95–98; BMI 28.0
--- NOTE | 2020-10-06 04:12 | PC.NURSE ---
Patient is A&OX4. complained of back pain and PO pain medication administered. ?Rested throughout shift. VSS. No further concerns noted.
--- NOTE | 2020-10-06 08:28 | P.PN_ITS ---
Internal Medicine - PN: Subj *Date: 10/06/20 *Time: 08:28 Interval history: Patient is more awake and alert this morning. He is able to tell me the events of the week and essentially patient began getting sick on Thursday of this week. He was disoriented at times. Was weak and had trouble ambulating as well as using upper extremities. During this time he did not wear his oxygen despite the fact that he thought he had pneumonia Exam Vital signs and Labs for Last 24 Hours: Temp Pulse Resp BP Pulse Ox 97.7 F 75 18 112/58 L 96 10/06/20 07:43 10/06/20 08:17 10/06/20 08:17 10/06/20 07:43 10/06/20 07:43 Laboratory Results - last 24 hr 10/05/20 06:35: Total Counted 100, Neutrophils % (Manual) 57, Band Neutrophils % 20.0 H, Lymphocytes % (Manual) 9 L, Atypical Lymphs % 1.0, Monocytes % (Manual) 6, Eosinophils % (Manual) 1, Basophils % (Manual) 1.0, Metamyelocytes % 3.0 H, Myelocytes % 2 H, Platelet Estimate Normal, Stomatocytes 1+, [place] Cells 1+ 10/05/20 06:35: Sodium 137, Potassium 4.5, Chloride 101, Carbon Dioxide 26, Anion Gap 14.5 I & O for Last 24 hours: Intake & Output 10/03/20 10/04/20 10/05/20 10/06/20 11:59 11:59 11:59 11:59 Intake Total 1300 / 1300 1879 / 1879 Output Total 550 / 550 1050 / 1050 Balance 750 / 750 829 / 829 Weight 185 lb 184 lb 15.838 oz Narrative: Patient is sitting up in bed. He is back to baseline. Lung exam reveals poor aeration with diffuse expiratory wheezes. Heart has a regular rate and rhythm. Abdomen is soft. 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 Continue cefepime to cover Pseudomonas and vancomycin to cover MRSA. Patient has been unable to produce a sputum sample 2. No cardiac arrhythmias. 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 DC Sol catheter to allow for better ambulation
[2020-10-06 11:38] LABS: Vancomycin,Trough 10.8 ug/mL (5.0-10.0)
[2020-10-06 16:13] LABS: Vancomycin,Peak 27.7 ug/ml (11-39)
[2020-10-07] VITALS: BP 110/64; PULSE 62; RESP 18; TEMP 36.6; O2SAT 96
[2020-10-07 04:00] VITALS: BP 126/66; PULSE 64; RESP 17; TEMP 36.6; O2SAT 96
[2020-10-07 05:00] VITALS: BMI 28.0
--- NOTE | 2020-10-07 05:55 | PC.NURSE ---
A&OX4. HAS TOLERATED 3LNC WELL. HAS NOT C/O SOA OR CHEST PAIN. HAS C/O PAIN IN BACK, RECEIVING PAIN MEDS PER MAR. ON REASSESSMENT, PT RESTING IN BED COMFORTABLY. NO OTHER C/O THUS FAR, VSS WILL CONTINUE TO MONITOR.
[2020-10-07 06:40] VITALS: PULSE 60; O2SAT 99
[2020-10-07 07:48] VITALS: BP 117/54; PULSE 64; RESP 20; TEMP 36.7; O2SAT 96
--- NOTE | 2020-10-07 08:00 | HMH.DCSUM ---
General - General Admission date:: 10/05/20 Discharge date: 10/07/20 HPI HPI: 55-year-old male with history of COPD as well as Pseudomonas pneumonia at last hospitalization presented to the ER with 4 days of progressive weakness and shortness of breath. Patient denies cough above baseline. Patient reports he was so weak he was unable to ambulate at home. He has a friend who checks on him on him frequently and the friend became concerned yesterday evening when patient did not seem to be himself and contacted EMS. There was concern that the patient was having an abnormal cardiac rhythm. EMS arrived. Patient was weak. Patient was brought to the emergency department. It was there the patient also admitted he could not move his arms. Work-up ultimately revealed bilateral pneumonia. Patient does not believe he is had fevers at home. Hospital Course Hospital Course: Patient was admitted and placed on cefepime and vancomycin for his bilateral pneumonia with history of both Pseudomonas and MRSA. Patient was unable to produce a sputum sample until October 06 and at the time of this dictation culture is still pending. Patient responded to antibiotics and supplemental oxygen. Physically patient went from mild disorientation and inability to move his extremities to back to his baseline level of function within 36 hours. Prior to discharge from the hospital patient was able to ambulate independently. On October 07 he was discharged home on Bactrim and will follow-up in the office in 48 hours. On presentation to the emergency department patient displayed inability to move his extremities. He denied fall or neck injury. CT scan of the neck showed some cervical foraminal stenosis and mild spinal stenosis but none to a degree that would explain patient's immobility. Once patient was admitted and treatment began for his pneumonia patient's symptoms resolved. Once patient was lucid he did explain that he had gone without supplemental oxygen most of his week due to the amount of heat that the concentrator puts off within the home. Patient was continued on his maintenance home medicines during hospitalization Objective Vital signs: Temp Pulse Resp BP Pulse Ox 98.0 F 64 20 117/54 L 96 10/07/20 07:48 10/07/20 07:48 10/07/20 07:48 10/07/20 07:48 10/07/20 07:48 no acute distress - *Routine Respiratory Exam Present: wheezes, distant breath sounds - *Routine Cardiovascular Exam Present: RRR - *Routine Abdominal Exam Present: soft, normoactive bowel sounds. 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 (6) Foraminal stenosis of cervical region Status: Acute (7) Cervical spinal stenosis Status: Acute Discharge Plan - Patient Discharge Instructions ACTIVITY: Continue current activity DIET: continue same diet Patient Instructions: DI for Chronic Obstructive Pulmonary Disease, DI for Pneumonia -- Adult - Follow up Plan Follow up with: Tray Lizarraga MD [Primary Care Provider] - 10/09/20 2:00 pm Disposition: Home, Self-Care Condition at discharge:: Improved Home Medications: Home Medications Medication Instructions Recorded Confirmed Type Oxymorphone HCl [Oxymorphone HCl 40 mg PO BIDP PRN 03/31/19 10/05/20 History ER] Aspirin [Aspir-Low]
== END 2020-10-07 10:35 | disposition home or self-care (01) ==
LOC: ER 20:01 → 2ND 10-05 00:23
PROVIDERS: Admitting Provider Internal Medicine Adolescent Medicine; Emergency Provider Emergency Medicine; PCP Family Medicine; Visit Provider Family Medicine
DX: J44.1 Chronic obstructive pulmonary disease with (acute) exacerbation (principal); Z20.822 Contact with and (suspected) exposure to COVID-19; J18.9 Pneumonia, unspecified organism; I48.91 Unspecified atrial fibrillation; K21.9 Gastro-esophageal reflux disease without esophagitis; Z95.0 Presence of cardiac pacemaker; Z79.01 Long term (current) use of anticoagulants; M48.02 Spinal stenosis, cervical region; I10 Essential (primary) hypertension; E78.5 Hyperlipidemia, unspecified; I49.5 Sick sinus syndrome; Z87.01 Personal history of pneumonia (recurrent); Z79.899 Other long term (current) drug therapy
CPT/HCPCS: 36415; 70450; 71045; 72125; 72170; 80048; 80053; 80202; 80305; 81001; 82803; 83605; 83735; 83880; 84436; 84443; 84484; 85007; 85025; 87040; 87070; 87077; 87186; 87205; 93005; 94640; 94760; 94761; 96365; 96366; 96375; 99284; G0378; J3370; U0003

== ENCOUNTER 2020-11-17 21:48 | Observation (INO) | payer OTHER, SELFPAY ==
[2020-11-17 21:53] VITALS: BP 124/71; PULSE 75; RESP 18; TEMP 36.8; O2SAT 94; BMI 25.1
[2020-11-17 22:00] VITALS: BP 124/76; PULSE 65; RESP 26; O2SAT 88
--- NOTE | 2020-11-17 22:01 | XR_ITS ---
PROCEDURE INFORMATION: Exam: XR Chest Exam date and time: 11/17/2020 10:01 PM Age: 55 years old Clinical indication: Injury or trauma; Fall; Blunt trauma (contusions or hematomas); Injury date: 11/17/2020; Injury details: Fell trauma protocols; Prior surgery; Surgery date: 6+ months; Surgery type: Pacemaker TECHNIQUE: Imaging protocol: XR of the chest. Views: 1 view. COMPARISON: CR XR CHEST PORTABLE 10/04/2020 10:21 PM FINDINGS: Lungs: Unremarkable. No consolidation. Pleural spaces: Unremarkable. No pleural effusion. No pneumothorax. Heart/Mediastinum: Unremarkable. No cardiomegaly. Bones/joints: Unremarkable. IMPRESSION: No acute findings.
--- NOTE | 2020-11-17 22:01 | XR_ITS ---
PROCEDURE INFORMATION: Exam: XR Pelvis Exam date and time: 11/17/2020 10:01 PM Age: 55 years old Clinical indication: Injury or trauma; Fall; Blunt trauma (contusions or hematomas); Bilateral; Pelvic region; Injury date: 11/17/2020; Injury details: Fell trauma protocols TECHNIQUE: Imaging protocol: XR pelvis. Views: 1 or 2 view. COMPARISON: CR XR PELVIS 1-2V 10/04/2020 10:21 PM FINDINGS: Bones/joints: Unremarkable. No acute fracture. Soft tissues: Unremarkable. IMPRESSION: No acute findings.
--- NOTE | 2020-11-17 22:01 | ECG_ITS ---
APPROVED REPORT Exam: Resting ECG HR:60 bpm ECG Measurements Heart Rate 60 AXES IL 166 P 70 QRSd 88 QRS 27 QT 400 T 70 QTc 400 Conclusion Electronic atrial pacemaker Electronically signed by : Tray Em MD 11/18/2020 20:52:32
--- NOTE | 2020-11-17 22:04 | CT_ITS ---
PROCEDURE INFORMATION: Exam: CT Head Without Contrast Exam date and time: 11/17/2020 10:04 PM Age: 55 years old Clinical indication: Injury or trauma; Fall; Blunt trauma (contusions or hematomas); Without loss of consciousness; Injury date: 11/17/2020; Injury details: Fell hematoma left frontal area TECHNIQUE: Imaging protocol: Computed tomography of the head without contrast. 3D rendering (Not supervised by radiologist): MIP and/or 3D reconstructed images were created by the technologist. Radiation optimization: All CT scans at this facility use at least one of these dose optimization techniques: automated exposure control; mA and/or kV adjustment per patient size (includes targeted exams where dose is matched to clinical indication); or iterative reconstruction. COMPARISON: CT HEAD/BRAIN WO CON 10/04/2020 10:11 PM FINDINGS: Brain: Normal. No hemorrhage. Unremarkable white matter. No mass effect. Cerebral ventricles: No ventriculomegaly. Paranasal sinuses: Visualized sinuses are unremarkable. No fluid levels. Mastoid air cells: Visualized mastoid air cells are well aerated. Bones/joints: Unremarkable. No acute fracture. Soft tissues: Unremarkable. IMPRESSION: No acute intracranial abnormality.
--- NOTE | 2020-11-17 22:04 | CT_ITS ---
PROCEDURE INFORMATION: Exam: CT Maxillofacial Without Contrast Exam date and time: 11/17/2020 10:04 PM Age: 55 years old Clinical indication: Injury or trauma; Fall; Blunt trauma (contusions or hematomas); Forehead; Injury date: 11/17/2020; Injury details: Fell hematoma left frontal area TECHNIQUE: Imaging protocol: Computed tomography images of the face without contrast. Radiation optimization: All CT scans at this facility use at least one of these dose optimization techniques: automated exposure control; mA and/or kV adjustment per patient size (includes targeted exams where dose is matched to clinical indication); or iterative reconstruction. COMPARISON: SINUS CT SINUS (MAX-FACIAL W/O CONT) 11/26/2015 2:59 PM FINDINGS: Orbital cavity: Orbits are normal. Globes are unremarkable. Bones/joints: No acute fracture. Paranasal sinuses: Normal. No air-fluid levels. Soft tissues: An 8 mm soft tissue density seen in the right subcutaneous tissues bordering the dermis at the level of the angle of the mandible. It may be a sebaceous cyst. Lymph nodes: Mild prominence cervical chain lymph nodes. IMPRESSION: No evidence of acute osseous injury
[2020-11-17 22:09] LABS: Basophils # 0.1 K/mm3 (0-0.2); Basophils % 0.6 % (0.1-2.0); Eosinophils # 0.1 K/mm3 (0.0-0.4); Eosinophils % 0.7 % (0.1-12.0); Hematocrit 32.6 % (42.0-52.0); Hemoglobin 10.2 g/dL (14.1-18.0); Lymphocytes # 1.2 K/mm3 (0.7-4.5); Mean Corpuscular HGB Conc 31.4 g/dL (31.8-35.4); Mean Corpuscular Hemoglobin 27.9 pg (27.0-31.2); Mean Platelet Volume 8.3 fl (7.4-10.4); Monocytes # 0.7 K/mm3 (0.1-1.0); Monocytes % 5.7 % (1.7-9.3); Neutrophils # 9.5 K/mm3 (1.8-7.8); Neutrophils % 83.1 % (37.0-80.0); Platelet Count 218 K/mm3 (142-424); Red Blood Count 3.66 M/mm3 (4.60-6.20); Red Cell Distribution Width 15.2 % (11.5-17.5); White Blood Count 11.5 K/mm3 (4.8-10.8)
[2020-11-17 22:17] LABS: Alanine Aminotransferase 14 U/L (12-78); Albumin Level 3.5 g/dl (3.5-5.0); Alkaline Phosphatase 75 U/L (38-126); Anion Gap 11.1 mEq/L (5-15); Aspartate Amino Transferase 26 U/L (17-59); Bilirubin,Total 0.4 mg/dl (0.2-1.3); Blood Urea Nitrogen 19 mg/dl (9-20); Calcium 8.2 mg/dl (8.4-10.2); Carbon Dioxide 30 mmol/L (22.0-30.0); Chloride 101 mmol/L (98-107); Creatine Kinase 94 U/L (55-170); Creatinine Clearance Estimated 89 mL/min (50-200); Estimated Glomerular Filt Rate 77 ml/min (>60); GFR (African American) 93 ML/MIN (>60); Globulin 3.6 g/dL (1.3-3.2); Glucose 112 mg/dl (74-100); Potassium 4.1 mmoL/L (3.5-5.1); Sodium 138 mmol/L (136-145); Total Protein,Serum 7.1 g/dl (6.3-8.2)
[2020-11-17 22:20] LABS: C-Reactive Protein 46.9 mg/L (0-4)
--- NOTE | 2020-11-17 22:20 | CT_ITS ---
PROCEDURE INFORMATION: Exam: CT Cervical Spine Without Contrast Exam date and time: 11/17/2020 10:20 PM Age: 55 years old Clinical indication: Injury or trauma; Fall; Blunt trauma; Injury date: 11/17/2020; Injury details: Fell TECHNIQUE: Imaging protocol: Computed tomography images of the cervical spine without contrast. Radiation optimization: All CT scans at this facility use at least one of these dose optimization techniques: automated exposure control; mA and/or kV adjustment per patient size (includes targeted exams where dose is matched to clinical indication); or iterative reconstruction. COMPARISON: CT CERVICAL SPINE WO CON 10/04/2020 10:13 PM FINDINGS: Bones/joints: No fracture. No malalignment. Vertebral body heights are maintained. Discs/Spinal canal/Neural foramina: Mild degenerative facet arthropathy and uncovertebral spurring. Mild neural foraminal stenosis at C5-C6 and C6-C7. No severe spinal canal stenosis. No significant neural foraminal narrowing. Lungs: Emphysematous changes seen. Some linear and nodular opacities are seen in the right apex. A 5 mm nodule seen in the right apex on image 88 of series 3. The Recommend correlation with recent CT chest. This was not present on a CT chest from March 2019 Soft tissues: Unremarkable. IMPRESSION: 1. No evidence of acute osseous injury. 2. Some linear and nodular opacities in the right pulmonary apex are seen. These were not present in March 2019. Recommend correlation with recent CT chest.
--- NOTE | 2020-11-17 22:20 | XR_ITS ---
PROCEDURE INFORMATION: Exam: XR Left Ankle Exam date and time: 11/17/2020 10:20 PM Age: 55 years old Clinical indication: Injury or trauma; Fall; Blunt trauma; Injury date: 11/17/2020; Injury details: Fell pain left foot and ankle TECHNIQUE: Imaging protocol: XR Left ankle. Views: 3 or more views. COMPARISON: No relevant prior studies available. FINDINGS: Bones/joints: Of a tiny calcification projects lateral to the navicular on the AP view. There is also a small calcifications seen medial to the talus on the AP view. There are also some tiny calcifications projecting dorsal to the talonavicular joint on the lateral view. Any of these could represent age indeterminate avulsion fragment. Otherwise, no evidence of fracture. Soft tissues: Normal. IMPRESSION: No definite fracture. Please see above.
--- NOTE | 2020-11-17 22:20 | XR_ITS ---
PROCEDURE INFORMATION: Exam: XR Left Foot Exam date and time: 11/17/2020 10:20 PM Age: 55 years old Clinical indication: Injury or trauma; Fall; Blunt trauma; Injury date: 11/17/2020; Injury details: Fell pain left foot and ankle TECHNIQUE: Imaging protocol: XR Left foot. Views: 3 or more views. COMPARISON: CR XR ANKLE LT MIN 3V 11/17/2020 10:42 PM FINDINGS: Bones/joints: No fracture. No malalignment. Soft tissues: Normal. IMPRESSION: No acute findings.
[2020-11-17 22:21] LABS: Carbamazepine (Tegretol) > 20.0 ug/ml (4.0-12.0)
[2020-11-17 22:29] LABS: NT Pro Brain Natriuretic Pep. 178 pg/mL (0-125)
[2020-11-17 22:30] VITALS: BP 119/76; PULSE 89; RESP 22; O2SAT 95
--- NOTE | 2020-11-17 22:30 | PC.NURSE ---
NOTIFIED MD OF TEGRETOL LEVEL AT THIS TIME. NO NEW ORDERS
--- NOTE | 2020-11-17 22:33 | HMH.EDFALL ---
ED Disposition Clinical Impression: Presence of cardiac pacemaker, Elevated erythrocyte sedimentation rate Tegretol toxicity Qualifiers: Encounter type: initial encounter Injury intent: accidental or unintentional Qualified Code(s): T42.1X1A - Poisoning by iminostilbenes, accidental (unintentional), initial encounter Anemia Qualifiers: Anemia type: unspecified type Qualified Code(s): D64.9 - Anemia, unspecified Avulsion fracture of navicular bone of foot Qualifiers: Encounter type: initial encounter Fracture type: closed Laterality: left Qualified Code(s): S92.252A - Displaced fracture of navicular [scaphoid] of left foot, initial encounter for closed fracture Disposition: Admitted as Observation Condition on Discharge: Good - Critical Care Critical Care Time: No Attestation: On 11/17/20, the high probability of a clinically significant, sudden or life threatening deterioration of the following system(s) required my full and direct attention, intervention and personal management. The time I documented below is in addition to time spent performing reported procedures but includes the following listed in this critical care notation. Medical Decision Making - Medical Records Medical records reviewed: Yes: I reviewed the patient's medical records. - Julius Inquiry Pt receiving controlled substance: No Vital Signs: 11/17/20 21:53 11/17/20 22:00 11/17/20 22:30 Temperature 98.2 F Temperature Source Oral Pulse Rate 65 89 Pulse Rate [Right Brachial] 75 Respiratory Rate 18 26 H 22 Blood Pressure 124/76 119/76 Blood Pressure [Right Arm] 124/71 Blood Pressure Mean Blood Pressure Mean [Right Arm] 88 Blood Pressure Source Automatic Cuff Blood Pressure Source [Right Arm] Automatic Cuff Blood Pressure Position Sitting Blood Pressure Position [Right Arm] Sitting 02 Sat by Pulse Oximetry 94 L 88 L 95 Oxygen Delivery Method Room Air Room Air Nasal Cannula Oxygen Flow Rate (LPM) 11/17/20 23:00 11/17/20 23:15 11/17/20 23:30 Temperature Temperature Source Pulse Rate 92 H 73 59 L Pulse Rate [Right Brachial] Respiratory Rate 21 12 10 L Blood Pressure 113/89 124/69 111/72 Blood Pressure [Right Arm] Blood Pressure Mean Blood Pressure Mean [Right Arm] Blood Pressure Source Automatic Cuff Blood Pressure Source [Right Arm] Blood Pressure Position Sitting Blood Pressure Position [Right Arm] 02 Sat by Pulse Oximetry 96 97 98 Oxygen Delivery Method Nasal Cannula Oxygen Flow Rate (LPM) 2 11/18/20 00:00 11/18/20 00:30 11/18/20 01:00 Temperature Temperature Source Pulse Rate 60 66 61 Pulse Rate [Right Brachial] Respiratory Rate 14 22 12 Blood Pressure 109/78 L 112/56 L 121/57 L Blood Pressure [Right Arm] Blood Pressure Mean 85 Blood Pressure Mean [Right Arm] Blood Pressure Source Blood Pressure Source [Right Arm] Blood Pressure Position Blood Pressure Position [Right Arm] 02 Sat by Pulse Oximetry 97 97 98 Oxygen Delivery Method Oxygen Flow Rate (LPM) 11/18/20 02:00 11/18/20 02:30 11/18/20 02:45 Temperature Temperature Source Pulse Rate 63 62 65 Pulse Rate [Right Brachial] Respiratory Rate 12 12 15 Blood Pressure 127/67 112/66 134/77 Blood Pressure [Right Arm] Blood Pressure Mean Blood Pressure Mean [Right Arm] Blood Pressure Source Blood Pressure Source [Right Arm] Blood Pressure Position Blood Pressure Position [Right Arm] 02 Sat by Pulse Oximetry 98 95 93 L Oxygen Delivery Method Oxygen Flow Rate (LPM) 11/18/20 03:31 11/18/20 04:00 Temperature Temperature Source Pulse Rate 62 66 Pulse Rate [Right Brachial] Respiratory Rate 11 L 18 Blood Pressure 169/96 H 169/98 H Blood Pressure [Right Arm] Blood Pressure Mean 121 Blood Pressure Mean [Right Arm] Blood Pressure Source Blood Pressure Source [Right Arm] Blood Pressure Position Blood Pressure Position
[2020-11-17 22:34] LABS: T4 (Thyroxine) 5.5 ug/dl (5.53-11.0)
[2020-11-17 22:35] LABS: Troponin I < 0.01 ng/ml (0.00-0.034)
[2020-11-17 22:41] LABS: Erythrocyte Sedimentation Rate 132 mm/hr (0-20)
[2020-11-17 22:47] LABS: Thyroid Stimulating Hormone 0.54 uIU/mL (0.465-4.68)
[2020-11-17 23:00] VITALS: BP 113/89; PULSE 92; RESP 21; O2SAT 96
[2020-11-17 23:15] VITALS: BP 124/69; PULSE 73; RESP 12; O2SAT 97
[2020-11-17 23:30] VITALS: BP 111/72; PULSE 59; RESP 10; O2SAT 98
[2020-11-18] VITALS (15 sets, daily range): BP systolic 98–169; BP diastolic 56–98; PULSE 60–78; RESP 11–22; TEMP 36.5–36.9; O2SAT 93–98; BMI 22.9
--- NOTE | 2020-11-18 00:24 | CT_ITS ---
PROCEDURE INFORMATION: Exam: CT Lumbar Spine With Contrast Exam date and time: 11/18/2020 12:24 AM Age: 55 years old Clinical indication: Injury or trauma; Blunt trauma (contusions or hematomas); Injury date: 11/17/2020; Injury details: Weakness recent falls; Additional info: Weakness, falls TECHNIQUE: Imaging protocol: Computed tomography images of the lumbar spine with intravenous contrast. Radiation optimization: All CT scans at this facility use at least one of these dose optimization techniques: automated exposure control; mA and/or kV adjustment per patient size (includes targeted exams where dose is matched to clinical indication); or iterative reconstruction. Contrast material: ISOVUE; Contrast volume: 75 ml; Contrast route: IV; COMPARISON: CT THORACIC SPINE W CON 11/18/2020 1:16 AM FINDINGS: Vertebrae: No acute fracture. Normal alignment. Discs/Spinal canal/Neural foramina: No significant disc protrusion. No severe spinal canal stenosis. No significant neural foraminal narrowing. Other bones/joints: A 9 mm sclerotic lesion in the right iliac bone is probably a bone island. It is unchanged from 2020. Lungs: Mild inflammatory changes in the bilateral lung posteriorly. 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 This measured 40 mm in 2020. Soft tissues: Unremarkable. IMPRESSION: 1. No evidence of acute osseous injury. 2. Interval 3 mm growth of a AAA since March 2019. Recommend follow-up ultrasound in a year.
--- NOTE | 2020-11-18 00:24 | CT_ITS ---
PROCEDURE INFORMATION: Exam: CT Thoracic Spine With Contrast Exam date and time: 11/18/2020 12:24 AM Age: 55 years old Clinical indication: Injury or trauma; Blunt trauma (contusions or hematomas); Injury date: 11/17/2020; Injury details: Weakness recent falls; Additional info: Weakness, falls TECHNIQUE: Imaging protocol: Computed tomography images of the thoracic spine with intravenous contrast. Radiation optimization: All CT scans at this facility use at least one of these dose optimization techniques: automated exposure control; mA and/or kV adjustment per patient size (includes targeted exams where dose is matched to clinical indication); or iterative reconstruction. Contrast material: ISOVUE; Contrast volume: 75 ml; Contrast route: IV; COMPARISON: CT CERVICAL SPINE WO CON 11/17/2020 10:31 PM FINDINGS: Vertebrae: No acute fracture. Normal alignment. Discs/Spinal canal/Neural foramina: No significant disc protrusion. No severe spinal canal stenosis. No significant neural foraminal narrowing. Soft tissues: Unremarkable. Lungs: emphysematous changes in the lungs. IMPRESSION: No acute osseous injury
[2020-11-18 00:44] LABS: Occult Blood,Stool Positive (Negative)
[2020-11-18 01:47] LABS: Troponin I < 0.01 ng/ml (0.00-0.034)
[2020-11-18 02:49] LABS: Coronavirus 19, PCR Not Detected (NotDetected); Influenza A, PCR Not Detected (NotDetected); Influenza B, PCR Not Detected (NotDetected)
[2020-11-18 04:41] LABS: Troponin I < 0.01 ng/ml (0.00-0.034)
--- NOTE | 2020-11-18 04:56 | PC.NURSE ---
pt had 400 ml urine output. gave warm blanket
--- NOTE | 2020-11-18 05:11 | PC.NURSE ---
PT ARRIVED TO FLOOR VIA STRETCHER FROM ED W/STAFF AT 0511
[2020-11-18 05:18] LABS: Basophils % 0.2 % (0.1-2.0); Eosinophils % 0.1 % (0.1-12.0); Hematocrit 34.4 % (42.0-52.0); Hemoglobin 10.8 g/dL (14.1-18.0); Lymphocytes # 0.5 K/mm3 (0.7-4.5); Lymphocytes % 5.4 % (10-50); Mean Corpuscular HGB Conc 31.5 g/dL (31.8-35.4); Mean Corpuscular Hemoglobin 28.1 pg (27.0-31.2); Mean Corpuscular Volume 89.2 fl (80-94); Mean Platelet Volume 7.7 fl (7.4-10.4); Monocytes # 0.2 K/mm3 (0.1-1.0); Monocytes % 1.8 % (1.7-9.3); Neutrophils # 8.2 K/mm3 (1.8-7.8); Neutrophils % 92.4 % (37.0-80.0); Platelet Count 214 K/mm3 (142-424); Red Blood Count 3.86 M/mm3 (4.60-6.20); Red Cell Distribution Width 15.3 % (11.5-17.5); White Blood Count 8.9 K/mm3 (4.8-10.8)
[2020-11-18 05:21] LABS: Chloride 105 mmol/L (98-107); Potassium 4.2 mmoL/L (3.5-5.1); Sodium 139 mmol/L (136-145)
[2020-11-18 05:24] LABS: Anion Gap 13.2 mEq/L (5-15); Blood Urea Nitrogen 15 mg/dl (9-20); Calcium 8.9 mg/dl (8.4-10.2); Carbon Dioxide 25 mmol/L (22.0-30.0); Creatinine Clearance Estimated 101 mL/min (50-200); Estimated Glomerular Filt Rate 100 ml/min (>60); GFR (African American) 121 ML/MIN (>60); Glucose 134 mg/dl (74-100); Magnesium 2.2 mg/dl (1.6-2.3)
[2020-11-18 05:29] LABS: MANUAL DIFFERENTIAL MANUAL DIFFERENTIAL (MANUAL DIFF)
[2020-11-18 05:44] LABS: Carbamazepine (Tegretol) > 20.0 ug/ml (4.0-12.0)
[2020-11-18 05:46] LABS: Hypochromasia 1+; Lymphocytes % 10 % (10-50); Neutrophils % 86 % (42-76); Platelet Estimate Normal; Rouleaux 1+; Total Cells Counted 100
--- NOTE | 2020-11-18 05:48 | PC.NURSE ---
A&OX4. TOLERATING RA WELL. PT DOES HAVE MULTIPLE BRUISES ON BODY. PERRLA. PT SEEMS TO BE SORE ALL OVER. RESTING IN BED SINCE ARRIVAL TO FLOOR. HAS VOICED NO COMPLAINTS THUS FAR. VSS WILL CONTINUE TO MONITOR.
--- NOTE | 2020-11-18 09:00 | HMH.HP ---
*Admission Date: 11/18/20 *Chief complaint: Fall *History of present illness: 55-year-old male presented to the emergency department after a fall at home when patient busted my face . Patient had been trying to use a bedside urinal at home when he lost balance. Patient is had increasing difficulty walking. Patient been seen in the office approximately 2 weeks ago and had noted abnormal movements of the extremities. At that time patient's Risperdal was decreased. Further work-up in the emergency department upon arrival revealed Tegretol toxicity. Patient was admitted for IV fluids and monitoring. [facility] History I have reviewed the patient's past medical history: Yes Medical History: Reports:: Anxiety, Arrhythmia, Atrial Fibrillation, Chronic Obstructive Pulmonary Disease (COPD), Gastroesophageal Reflux Disease(GERD), Hyperlipidemia, Hypertension, Internal Pacemaker, MRSA, Pulmonary Embolism, Seizures Denies:: Cancer, Diabetes Mellitus Type 1, Diabetes Mellitus Type 2 *Have you ever received a pneumonia vaccine?: No *Have you received a flu vaccine this season?: No Other Medical History: Reports: Anemia, Arthritis Other Surgeries: Yes: Cholecystectomy, Colonoscopy, Pacemaker, Other (Lumbar sx X3) Amputation: No Fractures: No - *Social History Smoking Status: Former smoker Tobacco Type: cigarettes # Packs/Day (cigarettes): 1 #Yrs smoked (if former smoker): 30 Alcohol Intake: former Substance Use Type: denies use *Occupational Status:: disabled Housing: house Household Members: none *Travel in the last 8 weeks: None - Psychiatric History Pschychiatric History:: Reports:: Anxiety Family Hx:: No significant family history Review of Systems - Constitutional Reports lack of energy, Denies chills - Eyes Denies blind spots, Denies blurry vision - ENT Denies abnormal hearing, Denies difficulty swallowing, Denies ear discharge - *Cardiovascular Denies chest pain at rest - *Respiratory Reports chest congestion, Reports cough, Reports shortness of breath - *Gastrointestinal Denies belching, Denies bloating, Denies change in bowel habits - *Genitourinary Denies difficulty urinating - *Musculoskeletal Reports joint pain - Integumentary/Breasts Denies change in hair - *Neurologic Reports abnormal walking, Reports dizziness, Reports tremor(s), Reports weakness, Reports other (Jerking movements of arms and legs), Denies localized weakness, Denies seizure-like activity, Denies sensory deficit, Denies fainting - Psychiatric Denies lack of enjoyment, Denies change in sex drive - Endocrine Denies excessive sweating - Hematologic/Lymphatic Denies easy bruising Meds Home Medications Medication Instructions Recorded Confirmed Type Oxymorphone HCl [Oxymorphone HCl 40 mg PO BIDP PRN 03/31/19 11/17/20 History ER] Aspirin [Aspir-Low] 81 mg PO DAILY 04/04/19 11/17/20 History Fluticasone Propionate [Flonase 2 sprays NS DAILY 04/04/19 11/17/20 History 50mcg nasal spray 16gm] Furosemide [Lasix 20mg tablet] 20 mg PO BID 04/04/19 11/17/20 History Meloxicam 15 mg PO DAILY 04/04/19 11/17/20 History Naloxone HCl [Narcan] 4 mg NS Q2M PRN 04/04/19 11/17/20 History Nitroglycerin [Nitrostat 0.4mg SL 0.4 mg SL Q5M PRN 04/04/19 11/17/20 History Tablet] Omeprazole [Omeprazole 40mg 40 mg PO DAILY 04/04/19 11/17/20 History Capsule] Potassium Chloride [Klor-con 20 20 meq PO DAILY 04/04/19 11/17/20 History mEq tablet] Pravastatin Sodium [Pravachol] 20 mg PO HS 04/04/19 11/17/20 History Promethazine HCl [Phenergan 25mg 25 mg PO Q6HP PRN 04/04/19 11/17/20 History tab] carBAMazepine [Tegretol] 400 mg PO BID 04/04/19 11/17/20 History risperiDONE [Risperidone] 3 mg PO BID 04/04/19 11/17/20 History Albuterol Sulfate [Proair Hfa] 2 puffs IH Q4HP PRN 08/28/20 11/17/20 History Famotidine 40 mg PO HS 08/28/20 11/17/20 History Fluticasone/Salmeterol [Advair 1 inh IH BID 08/28/20 11/17/20 History 250/50mcg Diskus*
--- NOTE | 2020-11-18 14:10 | P.CONPHA_ITS ---
[facility] Pharmacy VTE Monitoring - Patient Demographics Admission date: 11/18/20 Report Date: 11/18/20 Time: 14:10 Allergies/Adverse Reactions: Patient Allergies codeine [CODEINE] Allergy (Mild, Verified 11/14/20 14:20) Unknown allergy reaction levofloxacin [From LEVAQUIN] Allergy (Mild, Verified 11/14/20 14:20) Unknown allergy reaction methadone [METHADONE] Allergy (Mild, Verified 11/14/20 14:20) Unknown allergy reaction fentanyl [From Duragesic] Allergy (Verified 11/14/20 14:20) Unknown allergy reaction morphine Allergy (Verified 11/14/20 14:20) Unknown allergy reaction diltiazem [From Cardizem] Adverse Reaction (Severe, Verified 09/26/20 14:54) asystole during iv infusion Height: 1.75 m Weight: 70.261 kg Patient Problems: Current Active Problems Tegretol toxicity (Acute) Anemia (Acute) Elevated erythrocyte sedimentation rate (Acute) Avulsion fracture of navicular bone of foot (Acute) Tegretol toxicity (Acute) Presence of cardiac pacemaker (Chronic) - VTE Risk Labs: VTE Related Lab Results Hgb 10.8 g/dL (14.1-18.0) L 11/18/20 04:00 Hct 34.4 % (42.0-52.0) L 11/18/20 04:00 Plt Count 214 K/mm3 (142-424) 11/18/20 04:00 BUN 15 mg/dl (9-20) 11/18/20 04:00 Creatinine 0.80 mg/dl (0.66-1.25) 11/18/20 04:00 Estimated Creat Clear 101 mL/min (50-200) 11/18/20 04:00 - Prophylaxis Types of VTE Prophylaxis: TEDS Knee High, Pharmacological (XARELTO AND RADHA HOSE ORDERED) Location of Applied Device: Not Applicable
--- NOTE | 2020-11-18 15:31 | PC.NURSE ---
aox4, has been up to chair since 1200 this shift, tolerated ambulation well with standby assist. did request percocet once this shift for pain, was medicated per apr. tolerating diet well, denies n/v/d. has asked about going home this shift.
--- NOTE | 2020-11-19 03:50 | PC.NURSE ---
A&OX4. TOLERATING RA WELL. PT HAS REMAINED IN BED T/O THIS SHIFT. PT HAS SLEPT MAJORITY OF NIGHT. C/O BACK AND NECK PAIN, REQUESTING PAIN PILL EVERY 6 HOURS. NO OTHER C/O THUS FAR. VSS WILL CONTINUE TO MONITOR.
[2020-11-19 04:00] VITALS: BP 120/70; PULSE 60; RESP 16; TEMP 36.6; O2SAT 96
[2020-11-19 05:00] VITALS: BMI 22.9
--- NOTE | 2020-11-19 07:13 | SW/DCPLANNER ---
PATIENT ADMITTED TO [facility] AN OBSERVATION PATIENT WITH A TEGRETOL TOXICATION.. PATIENT HAS IMPROVED AND WAS UP MOST OF THE DAY YESTERDAY...MAY DISCHARGE LATER TODAY IF HE CONTINUES TO DO WELL... IF HE HAS ANY NEEDS THEY WILL BE SET UP AT TIME OF DISPOSITION...
--- NOTE | 2020-11-19 07:27 | HMH.DCSUM ---
General - General Admission date:: 11/18/20 Discharge date: 11/19/20 HPI HPI: 55-year-old male presented to the emergency department after a fall at home when patient busted my face . Patient had been trying to use a bedside urinal at home when he lost balance. Patient is had increasing difficulty walking. Patient been seen in the office approximately 2 weeks ago and had noted abnormal movements of the extremities. At that time patient's Risperdal was decreased. Further work-up in the emergency department upon arrival revealed Tegretol toxicity. Patient was admitted for IV fluids and monitoring. Hospital Course Hospital Course: Patient was admitted for neurologic side effects from Tegretol toxicity. He was placed on IV fluids. Initially patient had trouble ambulating at home and in the emergency department. With in 36 hours patient had returned to his baseline level of mobility. Patient was discharged home with discontinuation of carbamazepine. Patient has previously scheduled follow-up appointment in the office and will keep that appointment. Objective Vital signs: Temp Pulse Resp BP Pulse Ox 97.9 F 60 16 120/70 96 11/19/20 04:00 11/19/20 04:00 11/19/20 04:00 11/19/20 04:00 11/19/20 04:00 no acute distress - *Routine Respiratory Exam Present: CTA bilaterally - *Routine Cardiovascular Exam Present: RRR - *Routine Abdominal Exam Present: soft, normoactive bowel sounds. Absent: tenderness DS: Diagnosis - Discharge Diagnosis (1) Tegretol toxicity Status: Acute Discharge Plan - Patient Discharge Instructions ACTIVITY: Continue current activity DIET: continue same diet Patient Instructions: Anemia, How to Prevent Falls - Follow up Plan Disposition: Home, Self-Care Condition at discharge:: Improved Home Medications: Home Medications Medication Instructions Recorded Confirmed Type Oxymorphone HCl [Oxymorphone HCl 40 mg PO BIDP PRN 03/31/19 11/17/20 History ER] Fluticasone Propionate [Flonase 2 sprays NS DAILY 04/04/19 11/17/20 History 50mcg nasal spray 16gm] Furosemide [Lasix 20mg tablet] 20 mg PO BID 04/04/19 11/17/20 History Meloxicam 15 mg PO DAILY 04/04/19 11/17/20 History Naloxone HCl [Narcan] 4 mg NS Q2M PRN 04/04/19 11/17/20 History Nitroglycerin [Nitrostat 0.4mg SL 0.4 mg SL Q5M PRN 04/04/19 11/17/20 History Tablet] Omeprazole [Omeprazole 40mg 40 mg PO DAILY 04/04/19 11/17/20 History Capsule] Potassium Chloride [Klor-con 20 20 meq PO DAILY 04/04/19 11/17/20 History mEq tablet] Promethazine HCl [Phenergan 25mg 25 mg PO Q6HP PRN 04/04/19 11/17/20 History tab] carBAMazepine [Tegretol] 400 mg PO BID 04/04/19 11/17/20 History Albuterol Sulfate [Proair Hfa] 2 puffs IH Q4HP PRN 08/28/20 11/17/20 History Famotidine 40 mg PO HS 08/28/20 11/17/20 History Fluticasone/Salmeterol [Advair 1 inh IH BID 08/28/20 11/17/20 History 250/50mcg Diskus] Rivaroxaban [Xarelto 20mg Tablet*] 20 mg PO QPMWITHMEAL 08/28/20 11/18/20 History Ipratropium/Albuterol Sulfate 1 puff IH Q6H 10/05/20 11/17/20 History [Combivent Respimat Inh] Albuterol Sulfate [Albuterol 1.25 mg INHALATION TID 11/17/20 11/17/20 History 0.042% 1.25mg/3mL neb] Sodium Chloride For Inhalation 3 ml INHALATION Q8H 11/17/20 11/18/20 History [Hyper-Benedict] bisoproloL fumarate [Bisoprolol 10 mg PO BID 11/17/20 11/17/20 History Fumarate] Aspirin [Aspirin 81mg EC Tab] 81 mg PO DAILY 11/18/20 11/18/20 History Pravastatin Sodium [Pravachol 20mg 20 mg PO HS 11/18/20 11/18/20 History Tablet] dilTIAZem HCL [Diltiazem ER] 240 mg PO DAILY 11/18/20 11/18/20 History risperiDONE [Risperidone] 3 mg PO BID 11/18/20 11/18/20 History Prescriptions/Medication Reconciliation: Continued Oxymorphone HCl [Oxymorphone HCl ER] 40 mg PO BIDP PRN PRN Reason: BACK PAIN Furosemide [Lasix 20mg tablet] 20 mg PO BID Nitroglycerin [Nitrostat 0.4mg SL T
[2020-11-19 08:00] VITALS: BP 112/56; PULSE 71; RESP 18; TEMP 37.1; O2SAT 96
== END 2020-11-19 08:32 | disposition home or self-care (01) ==
LOC: ER 21:54 → 2ND 11-18 04:56
PROVIDERS: Admitting Provider Internal Medicine Adolescent Medicine; Emergency Provider Emergency Medicine; PCP Family Medicine; Visit Provider Family Medicine
DX: T42.1X1A Poisoning by iminostilbenes, accidental (unintentional), initial encounter (principal); Z20.822 Contact with and (suspected) exposure to COVID-19; Z79.01 Long term (current) use of anticoagulants; Z95.0 Presence of cardiac pacemaker; J44.9 Chronic obstructive pulmonary disease, unspecified; I11.0 Hypertensive heart disease with heart failure; E78.5 Hyperlipidemia, unspecified; I48.91 Unspecified atrial fibrillation; R29.6 Repeated falls; I49.5 Sick sinus syndrome; Z79.899 Other long term (current) drug therapy; R27.0 Ataxia, unspecified; R53.1 Weakness; W19.XXXA Unspecified fall, initial encounter; Z91.81 History of falling
CPT/HCPCS: 36415; 70450; 70486; 71045; 72125; 72129; 72132; 72170; 73610; 73630; 80048; 80053; 80156; 82272; 82550; 83735; 83880; 84145; 84436; 84443; 84484; 85007; 85025; 85651; 86140; 93005; 96365; 99284; C9803; G0328; G0378; Q9966; U0003; U0005

== ENCOUNTER → 2021-01-15 13:06 | Outpatient (CLI) | payer OTHER, SELFPAY ==
--- NOTE | 2021-01-15 14:35 | CT_ITS ---
PROCEDURE: CT HIGH RESOLUTION CHEST CLINICAL HISTORY: Increased shortness of air COMPARISON: CT CT ANGIO CHEST from 04/04/[address] ANGIO CHEST PE PROTOCOL from 08/28/2020 TECHNIQUE: High-resolution images obtained. Axial images obtained with sagittal and coronal reformats. All CT scans at the facility use one or more dose reduction, viz: automated exposure control, ma/kV adjustment per patient size (including targeted exams where dose is matched to indication, i.e. head), or iterative reconstruction technique. FINDINGS: Mediastinal adenopathy has improved. There are coronary artery calcifications an artifact from cardiac pacemaker device. Centrilobular and paraseptal emphysema. COPD with scattered areas of scarring. Mild bronchial thickening. Faint tree in bud pattern right upper lobe anteriorly and right lower lobe laterally. 6 mm fissural nodule right middle lobe somewhat less prominent. Previously noted areas of pneumonia have improved. No effusions. No acute bony findings. High-resolution images demonstrates a few scattered areas of interlobular septal thickening. No bronchiectasis. IMPRESSION: 1. Interval improvement in the previously noted areas of pneumonia. There are a few areas of faint tree in bud opacities which could represent some minimal areas of pneumonia. 2. COPD with centrilobular and paraseptal emphysematous changes. Scattered areas of some mild interlobular septal thickening. Dictated by: Dominguez Carvalho MD 01/21/2021 08:51 Dominguez Carvalho MD in [place] 01/21/2021 08:51
== END ==
PROVIDERS: PCP Family Medicine; Visit Provider Internal Medicine Pulmonary Disease
DX: R06.00 Dyspnea, unspecified (principal); J84.9 Interstitial pulmonary disease, unspecified
CPT/HCPCS: 71250; 94060; 94618; 94726; 94729

== ENCOUNTER → 2021-10-28 11:32 | Outpatient (CLI) | payer OTHER, SELFPAY | PROVIDERS: PCP Family Medicine; Visit Provider Internal Medicine | DX: Z01.812 Encounter for preprocedural laboratory examination (principal); Z20.822 Contact with and (suspected) exposure to COVID-19; Z13.810 Encounter for screening for upper gastrointestinal disorder; Z12.11 Encounter for screening for malignant neoplasm of colon | CPT/HCPCS: C9803; U0003; U0005 ==

== ENCOUNTER 2021-10-30 10:44 | Day surgery (SDC) | payer OTHER, SELFPAY ==
[2021-10-30] VITALS (7 sets, daily range): BP systolic 90–118; BP diastolic 60–70; PULSE 60–70; RESP 16–18; TEMP 36.2–36.6; O2SAT 97–100; BMI 25.8
--- NOTE | 2021-10-30 12:45 | P.PN_ITS ---
[facility] Medical History Atrial fibrillation Chronic GERD COPD (chronic obstructive pulmonary disease) CVA (cerebral vascular accident) Incisional abscess Pacemaker Seizure Surgical History History of appendectomy History of lumbar surgery Family History Other Family history of COPD (chronic obstructive pulmonary disease) Family history of cardiac disorder Social History Smoking Status: Former smoker pack-years: 30 alcohol intake: never substance use type: denies use current occupational status: disabled Travel in the last 8 weeks: None household members: none housing: house current occupational exposures/hazards: No [facility] Anesthesia Checklist Patient Identification Patient Identification: Arm Band Structural Data Admitted From: Home Planned Operative Procedure/s: egd/colonoscopy Consent for Planned Operative Procedure(s) Verified: Yes Verified Documents: Surgical Consent and History and Physical NPO Status Verified Time NPO: 00:00 Additional verifications Anesthesia Reactions: No Airway Assessment C-Spine Mobility Assessed: Yes TMJ Mobility Assessed: Yes Dentition: Good Dentition Neurological Assessment Level of Consciousness: Awake and Alert Anesthesia Plan Anesthesia Risk discussed: Yes Anesthesia Plan: Verified ASA Class: III Anesthesia Type: MAC
--- NOTE | 2021-10-30 13:01 | HMH.SCOPE ---
Procedure: Date: 10/30/21 Patient Date of :: 1965 Procedure Performed:: EGD Indications:: Anemia Performing Provider:: Sylvester Wilcox MD Referring Provider:: Tray Senior MD Sedation:: See RN records Procedure:: The gastroscope was gently passed through the incisoral orifice into the oral cavity and under direct visualization the esophagus was intubated. The endoscope was passed down the esophagus, through the stomach, and into the duodenum. Color, texture, mucosa, and anatomy of the esophagus, stomach, and duodenum were carefully examined with the scope. Findings:: Esophagus: Irregular z-line. Distal esophagitis with small superficial ulcer. Biopsies obtained EG Junction: measured at 38 cm Cardia: Hiatal hernia approximately 2 cm in sizes Fundus: normal Body: Mild gastritis. Biopsies obtained Antrum: Mild gastritis, linear erythema. Biopsies obtained Duodenal bulb: normal Duodenum (second and third portion): normal. Biopsies obtained Recommendations:: Await pathology results Avoid NSAIDs Increase omeprazole to 40 mg two times per day for 8 weeks, then use once daily Move forward to colonoscopy Complications:: None Estimated blood obtained (mL): 0
--- NOTE | 2021-10-30 13:05 | HMH.SCOPE ---
Procedure: Date: 10/30/21 Patient Date of :: 1965 Procedure Performed:: Colonoscopy Indications:: Anemia Performing Provider:: Sylvester Wilcox MD Referring Provider:: Tray Senior MD Sedation:: See RN records Procedure:: After placing the patient in the left lateral decubitus position, the colonoscopy was gently inserted into the rectum and under direct visualization advanced to the cecum which was identified by transillumination in the right lower quadrant, identification of the ileocecal valve, appendiceal orifice, and cecal strap. Color, texture, mucosa, and anatomy of the colon were carefully examined with the scope. Findings:: Anal canal: normal Rectum: Internal hemorrhoids Sigmoid colon: Fair preparation Descending colon: Fair preparation Splenic flexure: normal Transverse colon: normal without polyps or inflammatory changes Hepatic flexure: Fair preparation Ascending colon: Fair preparation Cecum: fair to poor preparation Terminal ileum: not visualized Recommendations:: Preparation was fair, time was spent irrigating and cleansing colon. No active bleeding or bleeding lesions were seen Further evaluation with small bowel capsule study if indicated Follow up with referring provider Complications:: None Estimated blood obtained (mL): 0
== END 2021-10-30 14:06 | disposition home or self-care (01) ==
PROVIDERS: PCP Family Medicine; Visit Provider Internal Medicine
PROC: 0DJ08ZZ Inspection of Upper Intestinal Tract, Via Natural or Artificial Opening Endoscopic (ICD-10-PCS; CPT 43235; principal; 2021-10-30 12:00)
DX: D50.9 Iron deficiency anemia, unspecified (principal); Z12.11 Encounter for screening for malignant neoplasm of colon; K22.10 Ulcer of esophagus without bleeding; K44.9 Diaphragmatic hernia without obstruction or gangrene; Z79.899 Other long term (current) drug therapy
CPT/HCPCS: 45378; 43239; 96374